=== PATIENT | female | born 1965 | race Caucasian/White ===

== ENCOUNTER 2018-06-15 07:30 | Inpatient (IN) | payer BC ==
[2018-10-18] MEDS ORDERED: Buffered Lidocaine 0.9% SYRIN* 5 ML/SYR SYRINGE INTRADERM ONE (14:49)
--- OUTSIDE RECORDS SUMMARY | 2018-10-19 05:39 | XMS REPORT | Continuity of Care Document ---
:1965 External Reference #:[id number] Author Name GeethaGenie wilhelm Care Team Providers Name Role Phone Frankie Damon MD Primary Care Physician Unavailable Payers Type Date Identification Numbers Payment Provider Subscriber Policy Number: [id number] [employer] Amol Barboza PayID: [id number] [address] [address] [place] [address] Effective: 2014 Policy Number: [employer] Amol Barboza [id number] Onset: 2014 Group Name: [phone] [address] PayID: [id number] Henriquez [id number] Advance Directives Description No Information Available Problems Date Description Provider Status Onset: 03/01/2018 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 Active Onset: 12/29/2016 Thoracic and lumbosacral neuritis Frankie Damon M.D. Active Onset: 07/20/2017 Solitary sacroiliitis Frankie Damon M.D. Active Onset: 09/21/2017 Low back pain Frankie Damon M.D. Active Onset: 02/07/2018 Pure hyperglyceridemia Frankie Damon M.D. Active Onset: 03/15/2018 Type 2 diabetes mellitus Frankie Damon M.D. Active Onset: 03/25/2016 Encounter for other orthopedic Jaxson Finn M.D. Inactive aftercare Inactive: 11/23/2017 Onset: 06/10/2016 Bicipital tenosynovitis Jaxson Finn M.D. Inactive Inactive: 11/23/2017 Onset: 07/22/2015 Disorder of shoulder Jaxson Finn M.D. Inactive Inactive: 10/09/2018 Onset: 02/07/2018 Chronic obstructive lung disease Frankie Damon M.D. Resolved Resolved: 10/09/2018 Onset: 06/25/2015 Strain of rotator cuff capsule Jaxson Finn M.D. Resolved Resolved: 10/09/2018 Onset: 02/06/2016 Neoplasm of uncertain behavior of Frankie Damon M.D. Resolved skin Resolved: 10/09/2018 Family History Date Family Member(s) Problem(s) Comments General Cancer General Diabetes General heart problems Father Colon Cancer Father Chronic Obstructive Pulmonary Disease (COPD) Mother Heart Disease Mother Aneursym-brain Mother maternal grandfather-OR Mother Maternal grandmother-bone cancer Siblings 4 Social History Type Date Description Comments Sex Unknown Marital Status Lives With Occupation Currently Working [employer] Tobacco Use Start: Unknown End: Former Cigarette Smoker Unknown Smoking Status Reviewed: 10/11/18 Former Cigarette Smoker ETOH Use 10/09/2018 Rarely consumes alcohol Recreational Drug Use Denies Drug Use Tobacco Use Start: Unknown End: Patient is a former quit April 30 of Unknown smoker 2018 Exercise Type/Frequency Exercises rarely Allergies, Adverse Reactions, Alerts Date Description Reaction Status Severity Comments 05/21/2015 NKDA Active 02/03/2018 Bees Active swelling at site and itching. Medications Medication Date Status Form Strength Qnty SIG Indications Ordering Provider Hydrocodone-Acet 06/14 Active Tablets 5-325mg 120ta 1 tab every M51.16 [facility] /2017 bs 6h as needed Lenny Rossi M.D.,FACP Gabapentin 05/17 Active Capsules 300mg 90cap 2 cap in the s morning 2 [place] caps in , MTerrenceDTerrence afternoon and 2 cap at night Metformin HCL 03/15 Active Tablets 500mg 60tab 1 by mouth E11.9 s twice a day Laura Damon Ventolin HFA 02/07 Active Aerosol 108(90Bas 8gm 2 puffs by J44.9 e) mouth four [place] mcg/Act times a day Laura as needed Ibuprofen 08/30 Active Tablets 600mg 45tab three times a M51.16 s day with [place] food- as , M.D. needed per patient Lisinopril-Melcroft 03/11 Active Tablets 20-12.5mg 30tab take one I10 [place] chlorothiazide s tablet by Pachika mouth every , M.D. day in the morning Metaxalone Active Tablets 800mg takes 1 by [place], /0000 mouth at MD Tanya bedtime Black Cohosh Active Tablets 40mg 2 by mouth Unknown /0000 daily. Vitamin E Active Capsules 1000Iu 1 by mouth Unknown /0000 every day Flaxseed Oil Active Capsules 1000mg 1 by mouth Unknown /0000 every day Chantix 03/15 Hx Tablets 1mg 60tab take one F17.210 [place] s tablet by Nelson Jose Raul - mouth twice a , M.D. Chantix Starting 02/07 Hx Tablets 0.5mg X 1tabs as directed F17.210 [facility] 11 & 1 mg Christineikara - Merrick He , MShira 03/15 Dulera 02/07 Hx Aerosol 200-5mcg/ 8.800 2 puff twice J44.9 Act gm a day Nelson Onofer M.D. 10/09 Amberen 09/21 Hx Nelson Onofre M.D. 02/02 Chantix 08/10 Hx Tablets 1mg 56tab Take One F17.210 [place] s Tablet By Nelson Jose Raul - Mouth Twice A , M.D. Hydrocodone-Acet 07/20 Hx Tablets 5-325mg 90tab 1 tab every M51.16 [place] aminophen s 8h as needed Nelson Onofre M.D. 06/14 Chantix Starting 06/08 Hx Tablets 0.5mg X 53tab Take By Mouth F17.210 [place] 11 & 1 mg s as Directed Pachikara - X 42 On Package , Laura 08/10 Hydrocodone-Acet 05/16 Hx Tablets 5-325mg 42tab take 1 M51.16 Frankie aminophen s tablets every [place] - 8 hours for , M.D. 07/20 pain. Baclofen 05/16 Hx Tablets 10mg 45tab Take One-Half Jaime s Tablet By MAYURI Lopez - Mouth Every 8 09/21 Hours as Needed For Muscle Spasm, May Increase To One Tablet Every 8 Hours as Needed Tramadol HCL 12/29 Hx Tablets 50mg 120ta take two M51.16 [place] bs tablets by Nelson - mouth twice a , M.D. 07/20 day as needed maximum daily dose=4 Naproxen 08/25 Hx Tablets 500mg 30tab 1 tablet with M54.5 Jaime s food by mouth MAYURI Lopez - twice a day 03/09 Tramadol HCL 08/25 Hx Tablets 50mg 45tab Take 1-2 M54.5 Jaime s Tablets By MAYURI Lopez - Mouth Every 8 /08 Hours Needed For Pain; Maximum Daily Dose=4 Gabapentin 05/24 Hx Capsules 300mg 30cap Take One s Capsule By Aakash, - Mouth AT M.D. 03/09 Bedtime Neurontin 03/25 Hx Capsules 300mg 30cap 1 by mouth s every night Aakash, - at bedtime M.D. 05/24 Hydrocodone-Acet 01/28 Hx Tablets 5-325mg 60tab 1-2 by mouth M75.41 Jaxson aminophen s every 4-6 Aakash, - hours prn. M.D. 02/23 Hydrocodone-Acet 12/03 Hx Tablets 5-325mg 60tab 1-2 by mouth M75.41 Jaxson aminophen s every 4-6 Aakash, - hours prn. M.D. 01/13 Celecoxib 09/03 Hx Capsules 200mg 30cap once daily M75.41 s Christineika - , M.D. 12/03 Meloxicam 05/21 Hx Tablets 15mg 30tab Take One M75.80 [place] s Tablet By Lenny Rossi, - Mouth Every M.D.,FACP 10/15 Day With Food /2014 Lisinopril Hx Tablets 10mg 30tab once a day [place] /0000 s Nelson - Laura 03/11 Cyclobenzaprine Hx Tablets 5mg 60tab take 1-2 [place] HCL /0000 s tablets by Christineika - mouth twice a , M.D. 05/16 day needed, no driving after taking cyclobenzapri ne Vitamin B-12 00 Hx Tablets 50mcg Unknown /0000 - 02/02 Multi For Her Hx Tablets Unknown 50+ /0000 - 02/02 Tizanidine HCL Hx Capsules 4mg one by mouth Unknown /0000 every 8 hours - as needed 02/02 Gabapentin Hx Capsules 300mg 1 by mouth at [place]ared[place], /0000 bedtime. MD Tanya - 05/17 Cyanocobalamin Hx Tablets 500mcg take one Unknown /0000 tablet by - mouth daily 02/02 Vitamin E Hx Capsules 200Unit 1 by mouth Unknown /0000 every day - 03/09 Medications Administered in Office Medication Date Status Form Strength Qnty SIG Indications Ordering Provider Depomedrol Administered Injection Kristy 80MG 015 JESSICA Flores Immunizations CPT Code Status Date Vaccine Reaction Lot # [id number] Given 03/15/2018 Pneumonia Vaccine No immediate [id number] reaction...[id number] Given 02/06/2016 Tdap - [id number] Tetanus/Diptheria/Acellul ar Pertussis Vital Signs Date Vital Result Comment 10/11/2018 9:01am Height 65.5 inches 5'5.50" Weight 190.00 lb BP Systolic Sitting 130 mmHg BP Diastolic Sitting 78 mmHg Pain Level 8 BMI (Body Mass Index) 31.1 kg/m2 10/09/2018 1:42pm Height 65.5 inches 5'5.50" Weight 190.00 lb Heart Rate 103 /min BP Systolic Sitting 142 mmHg BP Diastolic Sitting 80 mmHg Body Temperature 98.6 F O2 % BldC Oximetry 96 % BMI (Body Mass Index) 31.1 kg/m2 09/28/2018 11:00am Height 65.5 inches 5'5.50" Weight 190.00 lb Heart Rate 60 /min BP Systolic Sitting 128 mmHg BP Diastolic Sitting 80 mmHg Respiratory Rate 14 /min O2 % BldC Oximetry 96 % BMI (Body Mass Index) 31.1 kg/m2 Neck Circumference in inches 15 09/20/2018 9:03am Height 65.5 inches 5'5.50" Weight 190.00 lb Heart Rate 96 /min BP Systolic Sitting 154 mmHg BP Diastolic Sitting 93 mmHg Body Temperature 97.9 F O2 % BldC Oximetry 98 % BMI (Body Mass Index) 31.1 kg/m2 08/23/2018 11:47am Height 65.5 inches 5'5.50" Weight 185.00 lb BP Systolic Sitting 150 mmHg BP Diastolic Sitting 80 mmHg Pain Level 6 BMI (Body Mass Index) 30.3 kg/m2 06/14/2018 7:30am Height 65.5 inches 5'5.50" Weight 185.25 lb Heart Rate 94 /min BP Systolic 138 mmHg BP Diastolic 86 mmHg Body Temperature 97.0 F O2 % BldC Oximetry 98 % BMI (Body Mass Index) 30.4 kg/m2 05/31/2018 12:59pm Height 65.5 inches 5'5.50" Weight 197.00 lb Heart Rate 101 /min BP Systolic Sitting 118 mmHg BP Diastolic Sitting 64 mmHg Respiratory Rate 16 /min Pain Level 6 O2 % BldC Oximetry 97 % Ra BMI (Body Mass Index) 32.3 kg/m2 05/17/2018 8:04am Height 65.5 inches 5'5.50" Weight 196.00 lb Heart Rate 77 /min BP Systolic 143 mmHg BP Diastolic 79 mmHg O2 % BldC Oximetry 98 % BMI (Body Mass Index) 32.1 kg/m2 03/29/2018 1:37pm Height 65.5 inches 5'5.50" Weight 197.00 lb Heart Rate 85 /min BP Systolic Sitting 118 mmHg BP Diastolic Sitting 68 mmHg Respiratory Rate 16 /min Pain Level 3 O2 % BldC Oximetry 98 % Ra BMI (Body Mass Index) 32.3 kg/m2 03/15/2018 7:36am Weight 197.00 lb Heart Rate 88 /min BP Systolic 118 mmHg BP Diastolic 80 mmHg Body Temperature 97.7 F O2 % BldC Oximetry 95 % 03/10/2018 8:23am Height 65.5 inches 5'5.50" Weight 199.00 lb Heart Rate 72 /min regularr BP Systolic Sitting 126 mmHg Ra Large Cuff BP Diastolic Sitting 90 mmHg Ra Large Cuff BP Systolic Standing 122 mmHg Ra Large Cuff BP Diastolic Standing 86 mmHg Ra Large Cuff Respiratory Rate 16 /min Pain Level 0 O2 % BldC Oximetry 100 % BMI (Body Mass Index) 32.6 kg/m2 03/01/2018 1:20pm Height 65.5 inches 5'5.50" Weight 195.00 lb Heart Rate 92 /min BP Systolic Sitting 134 mmHg BP Diastolic Sitting 82 mmHg Respiratory Rate 16 /min Pain Level 5 O2 % BldC Oximetry 98 % Ra BMI (Body Mass Index) 32.0 kg/m2 02/07/2018 7:40am Weight 194.00 lb Heart Rate 83 /min BP Systolic 137 mmHg BP Diastolic 80 mmHg Body Temperature 97.6 F O2 % BldC Oximetry 98 % 02/03/2018 8:47am Height 65.50 inches 5'5.50" Weight 192.00 lb Heart Rate 84 /min regular. BP Systolic 134 mmHg Ra Large cuff BP Diastolic 84 mmHg Ra Large cuff BP Systolic Sitting 138 mmHg LA Large cuff BP Diastolic Sitting 92 mmHg LA Large cuff BP Systolic Standing 130 mmHg LA Large cuff BP Diastolic Standing 86 mmHg LA Large cuff Respiratory Rate 12 /min no respiratory difficulties. Pain Level 4 O2 % BldC Oximetry 96 % BMI (Body Mass Index) 31.5 kg/m2 11/23/2017 7:39am Height 67 inches 5'7" Weight 188.50 lb Heart Rate 75 /min BP Systolic Sitting 110 mmHg BP Diastolic Sitting 78 mmHg O2 % BldC Oximetry 97 % BMI (Body Mass Index) 29.5 kg/m2 09/21/2017 7:36am Weight 181.50 lb Heart Rate 91 /min BP Systolic 108 mmHg BP Diastolic 70 mmHg Body Temperature 97.4 F O2 % BldC Oximetry 96 % 08/10/2017 8:01am Heart Rate 75 /min BP Systolic Sitting 130 mmHg BP Diastolic Sitting 80 mmHg O2 % BldC Oximetry 98 % 07/20/2017 7:41am Weight 183.00 lb Heart Rate 78 /min BP Systolic Sitting 124 mmHg BP Diastolic Sitting 80 mmHg Pain Level 4 O2 % BldC Oximetry 99 % 06/08/2017 7:34am Weight 188.25 lb Heart Rate 87 /min BP Systolic 128 mmHg BP Diastolic 80 mmHg Body Temperature 98.0 F O2 % BldC Oximetry 98 % 05/16/2017 10:23am Weight 188.25 lb Heart Rate 104 /min BP Systolic 136 mmHg BP Diastolic 78 mmHg Body Temperature 97.9 F O2 % BldC Oximetry 98 % 03/09/2017 11:08am Weight 185.00 lb Heart Rate 88 /min BP Systolic Sitting 136 mmHg BP Diastolic Sitting 86 mmHg O2 % BldC Oximetry 98 % 12/29/2016 3:06pm Weight 185.00 lb Heart Rate 102 /min BP Systolic Sitting 124 mmHg BP Diastolic Sitting 80 mmHg Body Temperature 97.8 F Pain Level 8 O2 % BldC Oximetry 97 % 08/25/2016 8:37am Weight 185.00 lb Heart Rate 76 /min BP Systolic Sitting 132 mmHg BP Diastolic Sitting 82 mmHg Respiratory Rate 15 /min Body Temperature 98.5 F O2 % BldC Oximetry 98 % 07/28/2016 3:18pm Height 67 inches 5'7" Weight 184.00 lb Pain Level 2 BMI (Body Mass Index) 28.8 kg/m2 06/10/2016 2:02pm Height 67 inches 5'7" Weight 199.00 lb Pain Level 3 only when she moves the arm forward BMI (Body Mass Index) 31.2 kg/m2 04/29/2016 7:57am Height 67 inches 5'7" Weight 199.00 lb Heart Rate 64 /min BP Systolic Sitting 134 mmHg BP Diastolic Sitting 80 mmHg Respiratory Rate 16 /min Pain Level 5 8 at the worst BMI (Body Mass Index) 31.2 kg/m2 04/09/2016 8:43am Weight 195.00 lb Heart Rate 90 /min BP Systolic Sitting 130 mmHg BP Diastolic Sitting 81 mmHg Body Temperature 97.0 F 03/25/2016 9:33am Height 67 inches 5'7" Weight 199.00 lb Pain Level 5 plateau not getting better BMI (Body Mass Index) 31.2 kg/m2 03/11/2016 7:54am Height 67 inches 5'7" Weight 199.00 lb Heart Rate 80 /min BP Systolic Sitting 140 mmHg BP Diastolic Sitting 104 mmHg Body Temperature 97.9 F O2 % BldC Oximetry 98 % BMI (Body Mass Index) 31.2 kg/m2 02/25/2016 9:19am Height 67 inches 5'7" Weight 202.00 lb Pain Level 7 BMI (Body Mass Index) 31.6 kg/m2 02/17/2016 1:43pm Weight 202.00 lb Heart Rate 86 /min BP Systolic Sitting 152 mmHg BP Diastolic Sitting 80 mmHg O2 % BldC Oximetry 96 % 02/06/2016 7:55am Height 65 inches 5'5" Weight 202.00 lb Heart Rate 82 /min BP Systolic Sitting 159 mmHg BP Diastolic Sitting 97 mmHg Body Temperature 97.7 F Pain Level 7 O2 % BldC Oximetry 98 % BMI (Body Mass Index) 33.6 kg/m2 01/14/2016 9:13am Height 67 inches 5'7" Weight 201.00 lb Pain Level 4 BMI (Body Mass Index) 31.5 kg/m2 12/24/2015 8:15am Height 67 inches 5'7" Weight 201.00 lb Heart Rate 88 /min BP Systolic Sitting 128 mmHg BP Diastolic Sitting 80 mmHg Respiratory Rate 15 /min Body Temperature 98.0 F Pain Level 8 O2 % BldC Oximetry 98 % BMI (Body Mass Index) 31.5 kg/m2 12/03/2015 8:43am Weight 205.00 lb Heart Rate 87 /min BP Systolic 140 mmHg BP Diastolic 98 mmHg Body Temperature 97.8 F 10/15/2015 7:40am Weight 205.00 lb Heart Rate 83 /min BP Systolic Sitting 153 mmHg BP Diastolic Sitting 95 mmHg Body Temperature 97.2 F 10/01/2015 7:56am Height 67 inches 5'7" Weight 204.00 lb Pain Level 6 BMI (Body Mass Index) 31.9 kg/m2 09/03/2015 7:56am Height 67 inches 5'7" Weight 207.00 lb Heart Rate 87 /min BP Systolic 138 mmHg BP Diastolic 90 mmHg Body Temperature 96.9 F Pain Level 5 BMI (Body Mass Index) 32.4 kg/m2 08/13/2015 8:37am Height 67 inches 5'7" Weight 204.00 lb Pain Level 8 BMI (Body Mass Index) 31.9 kg/m2 07/22/2015 8:13am Height 67 inches 5'7" Weight 206.00 lb Pain Level 6 BMI (Body Mass Index) 32.3 kg/m2 06/25/2015 1:51pm Height 68 inches 5'8" Weight 205.00 lb Pain Level 5 increases with use BMI (Body Mass Index) 31.2 kg/m2 06/25/2015 7:40am Weight 202.00 lb Heart Rate 85 /min BP Systolic Sitting 132 mmHg BP Diastolic Sitting 82 mmHg Body Temperature 97.7 F 06/11/2015 7:32am Weight 205.00 lb Heart Rate 88 /min BP Systolic Sitting 143 mmHg BP Diastolic Sitting 87 mmHg Body Temperature 96.8 F 05/21/2015 8:30am Height 66 inches 5'6" Weight 204.50 lb Heart Rate 83 /min BP Systolic Sitting 168 mmHg BP Diastolic Sitting 98 mmHg Pain Level 8 Shoulder O2 % BldC Oximetry 98 % BMI (Body Mass Index) 33.0 kg/m2 Results Test Date Facility Test Result H/L Range Note Laboratory test 10/09/2018 [employer] Hemoglobin A1c 6.9 5-7 finding Drug Abuse 20 06/14/2018 [facility] Urine Amphetamine Negative [address] ng/[place] [address] [phone] Urine Barbiturates Presumptive Posi <SEE NOTE> Abnormal 2 ng/mL Urine Benzodiazepines Negative ng/mL 3 Urine Cocaine Negative ng/mL 4 Urine Phencyclidine Negative ng/mL Cutoff: 25 Urine Tetrahydrocannabinol Negative ng/mL Cutoff: 50 5 Creatinine, Urine 43.3 mg/dL Specific [place] 1.009 pH 6.0 Oxidants Negative 6 Adulterants Comment Normal Codeine, Ur Not Detected ng/mL Cutoff: 25 7 Pyuaxws-2-anje-glucuronide, Ur Not Detected ng/mL 8 Morphine, Ur Not Detected ng/mL Cutoff: 25 9 Xxiwigiy-8-hucz-glucuronide, U Not Detected ng/mL 10 6-monoacetylmorphine, Ur Not Detected ng/mL Cutoff: 25 11 Hydrocodone, Ur Present ng/mL Abnormal Cutoff: 25 12 Norhydrocodone, Ur Present ng/mL Abnormal Cutoff: 25 13 Dihydrocodeine, Ur Not Detected ng/mL Cutoff: 25 14 Hydromorphone, Ur Not Detected ng/mL Cutoff: 25 15 Sjychawtedaab3gskqiykcobukzhs Not Detected ng/mL 16 Oxycodone, Ur Not Detected ng/mL Cutoff: 25 17 Noroxycodone, Ur Not Detected ng/mL Cutoff: 25 18 Oxymorphone, Ur Not Detected ng/mL Cutoff: 25 19 Mvgziwfamnh-3-edjh-glucuronide Not Detected ng/mL 20 Noroxymorphone, Ur Not Detected ng/mL Cutoff: 25 21 Fentanyl, Ur Not Detected ng/mL Cutoff: 2 22 Norfentanyl, Ur Not Detected ng/mL Cutoff: 2 23 Meperidine, Ur Not Detected ng/mL Cutoff: 25 24 Normeperidine, Ur Not Detected ng/mL Cutoff: 25 25 Naloxone, Ur Not Detected ng/mL Cutoff: 25 26 Jyrcaqpt-9-xevh-glucuronide, U Not Detected ng/mL 27 Methadone, Ur Not Detected ng/mL Cutoff: 25 28 Eddp, Ur Not Detected ng/mL Cutoff: 25 29 Propoxyphene, Ur Not Detected ng/mL Cutoff: 25 30 Norpropoxyphene, Ur Not Detected ng/mL Cutoff: 25 31 Tramadol, Ur Not Detected ng/mL Cutoff: 25 32 O-desmethyltramadol, Ur Not Detected ng/mL Cutoff: 25 33 Tapentadol, Ur Not Detected ng/mL Cutoff: 25 34 N-desmethyltapentadol, Ur Not Detected ng/mL Cutoff: 50 35 Nwieqcssbq-cwcd-epfxxhkbjwl, U Not Detected ng/mL 36 Buprenorphine, Ur Not Detected ng/mL Cutoff: 5 37 Norbuprenorphine, Ur Not Detected ng/mL Cutoff: 5 38 Norbuprenorphine glucuronide Not Detected ng/mL Cutoff: 20 39 Opioid Interpretation See Comment 40 Barbiturate Confirm 06/14/2018 [facility] Urine Butalbital 353 ng/mL [address] by GC/[place] [address] [phone] Urine Amobarbital by GC/MS Negative ng/mL 42 Urine Pentobarbital by GC/MS Negative ng/mL 43 Urine Secobarbital by GC/MS Negative ng/mL 44 Urine Phenobarbital by GC/MS Negative ng/mL 45 Urine Barbiturates Interp Positive. 46 Urine Nicotine 05/17/2018 [facility] Nicotine < 5.0 ng/mL < 5.[address] [place] [address] [phone] Cotinine < 5.0 ng/mL <5.0 Nornicotine < 2.0 ng/mL <2.0 Anabasine < 2.0 ng/mL <2.0 47 Urine Microalbumin 05/16/2018 [facility] Ur Microalbumin < 15.[address] (mg/L) mg/[place] [address] [phone] Urine Creatinine 81.81 mg/dL Urine Microalbumin/Creatinine TNP ug/mg <31 48 Lipid Profile 05/16/2018 [facility] Triglycerides 452 mg/dL 49 (Trig/Chol/HDL) [address] [place] [address] [phone] Cholesterol 213 mg/dL 50 HDL Cholesterol 35.4 mg/dL 51 LDL Cholesterol (SEE NOTE) mg/dL 52 Laboratory test 05/16/2018 [facility] LDL Cholesterol 102 mg/dL [address] [place] [address] [phone] Laboratory test 03/15/2018 [employer] [facility] Hemoglobin A1c 6.9 5-7 finding Laboratory test 01/26/2018 [facility] Troponin-I (TnI) 0.00 ng/ mL <0.[address] [place] [address] [phone] CBC Auto Diff 01/26/2018 [facility] White Blood 11.3 High 3.5- [address] Count 10^3/uL 0.8 [place] [address] [phone] Red Blood Count 5.12 10^6/uL N 4.0-5.4 Hemoglobin 17.3 g/dL High 12.0-16.0 Hematocrit 50 % High 35-47 Mean Corpuscular Volume 97 fL N 80-97 Mean Corpuscular Hemoglobin 34 pg High 27-31 Mean Corpuscular HGB Conc 35 g/dL N 31-36 Red Cell Distribution Width 13 % N 10.5-15 Platelet Count 233 10^3/uL N 150-450 54 Mean Platelet Volume 8 um3 N 7.4-10.4 Abs Neutrophils 7.5 10^3/uL N 1.5-7.7 Abs Lymphocytes 2.9 10^3/uL N 1.0-4.8 Abs Monocytes 0.6 10^3/uL N 0-0.8 Abs Eosinophils 0.2 10^3/uL N 0-0.6 Abs Basophils 0.1 10^3/uL N 0-0.2 Abs Nucleated RBC 0 10^3/uL Granulocyte % 66.2 % N 38-83 Lymphocyte % 25.7 % N 25-47 Monocyte % 5.6 % N 0-7 Eosinophil % 1.8 % N 0-6 Basophil % 0.7 % N 0-2 Nucleated Red Blood Cells % 0 Laboratory test 01/26/2018 [facility] Lactic Acid 1.8 mmol/L N 0.5-2.0 [address] [place] [address] [phone] B-Type Natriuretic Peptide BNP 24 pg/mL 56 Inr/Protime 01/26/2018 [facility] Inr 0.89 N 0.77-1.[address] [place] [address] [phone] Laboratory test 01/26/2018 [facility] Partial 31.7 seconds N 26.0-36.[address] [place] [address] PTT [phone] Comp Metabolic 01/26/2018 [facility] Sodium 137 mmol/L N 133- [address] [place] [address] [phone] Potassium 3.8 mmol/L N 3.5-5.0 Chloride 100 mmol/L Low 101-111 Co2 Carbon Dioxide 29 mmol/L N 22-32 Anion Gap 8 mmol/L N 2-11 Glucose 132 mg/dL High 70-100 Blood Urea Nitrogen 13 mg/dL N 6-24 Creatinine 0.81 mg/dL N 0.51-0.95 BUN/Creatinine Ratio 16.0 N 8-20 Calcium 10.3 mg/dL N 8.6-10.3 Total Protein 7.3 g/dL N 6.4-8.9 Albumin 4.4 g/dL N 3.2-5.2 Globulin 2.9 g/dL N 2-4 Albumin/Globulin Ratio 1.5 N 1-3 Total Bilirubin 0.30 mg/dL N 0.2-1.0 Alkaline Phosphatase 100 U/L N 34-104 Alt 23 U/L N 7-52 Ast 15 U/L N 13-39 Egfr Non- 74.3 >60 Egfr 95.5 >60 57 Laboratory test 01/26/2018 [facility] Magnesium 2.2 mg/dL N 1.9-2.[address] [place] [address] [phone] Creatine Kinase(CK) 56 U/L N 10-223 CKMB 01/26/2018 [facility] CKMB ng/mL 1.2 ng/mL N 0.6-6.[address] [place] [address] [phone] Laboratory test 01/26/2018 [facility] Troponin-I 0.00 ng/mL < 0.[address] (TnI) [place] [address] [phone] TSH (Thyroid Stim Horm) 0.76 mcIU/mL N 0.34-5.60 CBC Auto Diff 07/18/2017 [facility] White Blood 8.6 10^3/uL N 3.5-10.[address] [place] [address] [phone] Red Blood Count 5.38 10^6/uL N 4.0-5.4 Hemoglobin 18.2 g/dL High 12.0-16.0 Hematocrit 53 % High 35-47 Mean Corpuscular Volume 98 fL High 80-97 Mean Corpuscular Hemoglobin 34 pg High 27-31 Mean Corpuscular HGB Conc 35 g/dL N 31-36 Red Cell Distribution Width 14 % N 10.5-15 Platelet Count 264 10^3/uL N 150-450 Mean Platelet Volume 9 um3 N 7.4-10.4 Abs Neutrophils 4.8 10^3/uL N 1.5-7.7 Abs Lymphocytes 2.9 10^3/uL N 1.0-4.8 Abs Monocytes 0.6 10^3/uL N 0-0.8 Abs Eosinophils 0.2 10^3/uL N 0-0.6 Abs Basophils 0 10^3/uL N 0-0.2 Abs Nucleated RBC 0.01 10^3/uL N Granulocyte % 55.9 % N 38-83 Lymphocyte % 34.0 % N 25-47 Monocyte % 7.6 % N 1-9 Eosinophil % 2.0 % N 0-6 Basophil % 0.5 % N 0-2 Nucleated Red Blood Cells % 0.1 N Laboratory 07/18/2017 [facility] TSH (Thyroid Stim 0.53 N 0.34 -5.60 58 test finding [address] Horm) mcIU/[place] [address] [phone] Lipid Profile 07/18/2017 [facility] Triglycerides 331 mg/dL N 59 (Trig/Chol/HDL [address] ) [place] [address] [phone] Cholesterol 201 mg/dL N 60 HDL Cholesterol 29.9 mg/dL N 61 LDL Cholesterol 105 mg/dL N 62 Laboratory test 07/18/2017 [facility] Cortisol 16.74 g/dL N [address] [place] [address] [phone] Comp Metabolic 07/18/2017 [facility] Sodium 138 mmol/L N 133- [address] [place], [place] [id number] [phone] Potassium 3.9 mmol/L N 3.5-5.0 Chloride 101 mmol/L N 101-111 Co2 Carbon Dioxide 31 mmol/L N 22-32 Anion Gap 6 mmol/L N 2-11 Glucose 128 mg/dL High 70-100 Blood Urea Nitrogen 12 mg/dL N 6-24 Creatinine 0.84 mg/dL N 0.51-0.95 BUN/Creatinine Ratio 14.3 N 8-20 Calcium 10.0 mg/dL N 8.6-10.3 Total Protein 7.0 g/dL N 6.4-8.9 Albumin 4.3 g/dL N 3.2-5.2 Globulin 2.7 g/dL N 2-4 Albumin/Globulin Ratio 1.6 N 1-3 Total Bilirubin 0.70 mg/dL N 0.2-1.0 Alkaline Phosphatase 80 U/L N 34-104 Alt 19 U/L N 7-52 Ast 17 U/L N 13-39 Egfr Non- 71.5 N >60 Egfr 91.9 N >60 64 Vitamin B12 03/23/2017 [facility] Vitamin B12 > 1450 High 180- 914 65 And Folate [address] pg/mL Serum [place], [place] [id number] [phone] Folic Acid (Folate) > 20.00 ng/mL N >3.99 Wound 09/07/2016 [facility] Wound/Misc SEE RESULT 66, 67 Culture/Sensi [address] [place] [address] Stain [phone] HSV/VZV Derm PCR 09/07/2016 [facility] hs/VZ Source RIGHT N [address] SCALP [place], [place] [id number] [phone] HSV 1 PCR Negative N Negative HSV 2 PCR Negative N Negative 68 Varicella Zoster Source RIGHT SCALP N Varicella Zoster Result Positive N Negative 69 Laboratory test 06/28/2016 [facility] Surgical SEE RESULT 70, [address] [address] [phone] Laboratory test 02/17/2016 [facility] Cytology SEE RESULT 72 finding [address] [place] [address] [phone] HPV Rna Ww/Reflex Genotype Negative N Negative 73 Trichomonas Vaginalis Rna Negative N Negative 74 Laboratory test 02/17/2016 [facility] Gardnerella/Yeast: SEE RESULT [address] [place] [address] [phone] Comp Metabolic 01/02/2016 [facility] Sodium 133 mmol/L N 133- Panel [address] [place] [address] [phone] Potassium 4.0 mmol/L N 3.5-5.0 Chloride 100 mmol/L Low 101-111 Co2 Carbon Dioxide 27 mmol/L N 22-32 Anion Gap 6 mmol/L N 2-11 Glucose 174 mg/dL High 70-100 Blood Urea Nitrogen 10 mg/dL N 6-24 Creatinine 0.80 mg/dL N 0.51-0.95 BUN/Creatinine Ratio 12.5 N 8-20 Calcium 8.9 mg/dL N 8.6-10.3 Total Protein 6.3 g/dL Low 6.4-8.9 Albumin 4.1 g/dL N 3.2-5.2 Globulin 2.2 g/dL N 2-4 Albumin/Globulin Ratio 1.9 N 1-3 Total Bilirubin 0.50 mg/dL N 0.2-1.0 Alkaline Phosphatase 83 U/L N 34-104 Alt 31 U/L N 7-52 Ast 24 U/L N 13-39 Egfr Non- 75.9 N >60 Egfr 97.6 N >60 76 Laboratory test 01/02/2016 [facility] TSH (Thyroid 0.77 ?IU/mL N 0.34-5.[address] Stim Horm) [place] [address] [phone] CBC Auto Diff 01/02/2016 [facility] White Blood 7.3 10^3/uL N 3.5-10.[address] [place] [address] [phone] Red Blood Count 5.02 10^6/uL N 4.0-5.4 Hemoglobin 16.2 g/dL High 12.0-16.0 Hematocrit 48 % High 35-47 Mean Corpuscular Volume 96 fL N 80-97 Mean Corpuscular Hemoglobin 32 pg High 27-31 Mean Corpuscular HGB Conc 34 g/dL N 31-36 Red Cell Distribution Width 13 % N 10.5-15 Platelet Count 259 10^3/uL N 150-450 Mean Platelet Volume 8 um3 N 7.4-10.4 Abs Neutrophils 5.6 10^3/uL N 1.5-7.7 Abs Lymphocytes 1.0 10^3/uL N 1.0-4.8 Abs Monocytes 0.5 10^3/uL N 0-0.8 Abs Eosinophils 0.1 10^3/uL N 0-0.6 Abs Basophils 0 10^3/uL N 0-0.2 Abs Nucleated RBC 0 10^3/uL N Granulocyte % 76.6 % N 38-83 Lymphocyte % 14.1 % Low 25-47 Monocyte % 7.0 % N 1-9 Eosinophil % 1.7 % N 0-6 Basophil % 0.6 % N 0-2 Nucleated Red Blood Cells % 0 N Laboratory test 01/02/2016 [facility] Cortisol 8.53 ?g/dL N 77 finding [address] [place] [address] [phone] Lipid Profile 01/02/2016 [facility] Triglycerides 390 mg/dL N 78 (Trig/Chol/HDL) [address] [place] [address] [phone] Cholesterol 167 mg/dL N 79 HDL Cholesterol 27.8 mg/dL N 80 LDL Cholesterol 61 mg/dL N 81 Comp Metabolic Panel 09/03/2015 [facility] Sodium 135 mmol/L N 133-145 [address] [place] [address] [phone] Potassium 4.3 mmol/L N 3.5-5.0 Chloride 100 mmol/L Low 101-111 Co2 Carbon Dioxide 28 mmol/L N 22-32 Anion Gap 7 mmol/L N 2-11 Glucose 139 mg/dL High 70-100 Blood Urea Nitrogen 16 mg/dL N 6-24 Creatinine 0.90 mg/dL N 0.51-0.95 BUN/Creatinine Ratio 17.8 N 8-20 Calcium 9.4 mg/dL N 8.6-10.3 Total Protein 6.6 g/dL N 6.4-8.9 Albumin 4.4 g/dL N 3.2-5.2 Globulin 2.2 g/dL N 2-4 Albumin/Globulin Ratio 2.0 N 1-3 Total Bilirubin 0.60 mg/dL N 0.2-1.0 Alkaline Phosphatase 73 U/L N 34-104 Alt 30 U/L N 7-52 Ast 15 U/L N 13-39 Egfr Non- 66.5 N >60 Egfr 85.6 N >60 82 1 REFERENCE VALUE Cutoff: 500 2 Presumptive Positive Drug confirmation to follow. Presumptive Positive means that the screening method is positive, but the test needs to be run by a confirmatory method before being finalized. REFERENCE VALUE Cutoff: 200 3 REFERENCE VALUE Cutoff: 100 4 REFERENCE VALUE Cutoff: 150 5 ADDITIONAL INFORMATION This report is intended for use in clinical monitoring or management of patients. It is not intended for use in employment-related testing. 6 REFERENCE VALUE Cutoff: 200 mg/L 7 Tylenol 3 8 Metabolite of codeine REFERENCE VALUE Cutoff: 100 9 Trang Bennett, MS Contin; Also a minor metabolite (10%) of codeine and can be seen in low concentrations (<2,000 ng/mL) with poppy seed ingestion. 10 Metabolite of morphine REFERENCE VALUE Cutoff: 100 11 Metabolite of heroin 12 Lortab, Pelsor, Vicodin; Also a very minor metabolite of codeine and impurity (<1%) of oxycodone. 13 Metabolite of hydrocodone 14 Metabolite of hydrocodone 15 Dilaudid, Exalgo; Also a metabolite of hydrocodone and a minor (<5%) metabolite of morphine. 16 Metabolite of hydromorphone REFERENCE VALUE Cutoff: 100 17 Endocet, Percocet, Oxycontin 18 Metabolite of oxycodone 19 Numorphan, Opana; Also a metabolite of oxycodone. 20 Metabolite of oxymorphone REFERENCE VALUE Cutoff: 100 21 Metabolite of oxymorphone 22 Actiq, Duragesic, Fentora 23 Metabolite of fentanyl 24 Demerol 25 Metabolite of meperidine 26 Narcan 27 Metabolite of naloxone REFERENCE VALUE Cutoff: 100 28 Dolophine 29 Metabolite of methadone 30 Darvon, Darvocet 31 Metabolite of propoxyphene 32 Tradol, Ultram, Ultracet 33 Metabolite of tramadol 34 Nucynta 35 Metabolite of tapentadol 36 Metabolite of tapentadol REFERENCE VALUE Cutoff: 100 37 Buprenex, Suboxone 38 Metabolite of buprenorphine 39 Metabolite of buprenorphine 40 Test detected the presence of hydrocodone and one of its metabolites (norhydrocodone). Suspect use of hydrocodone within the past three days. ADDITIONAL INFORMATION This test was developed and its performance characteristics determined by [facility] in a manner consistent with CLIA requirements. This test has not been cleared or approved by the U.S. Food and Drug Administration. Test Performed by: [facility] [address] [place] [address] 41 REFERENCE VALUE Cutoff: 100 42 REFERENCE VALUE Cutoff: 100 43 REFERENCE VALUE Cutoff: 100 44 REFERENCE VALUE Cutoff: 100 45 REFERENCE VALUE Cutoff: 100 46 ADDITIONAL INFORMATION This report is intended for use in clinical monitoring and management of patients. It is not intended for use in employment-related testing. This test was developed and its performance characteristics determined by [facility] in a manner consistent with CLIA requirements. This test has not been cleared or approved by the U.S. Food and Drug Administration. Test Performed by: [facility] [employer] - [address] [address] 47 ADDITIONAL INFORMATION This test was developed and its performance characteristics determined by [facility] in a manner consistent with CLIA requirements. This test has not been cleared or approved by the U.S. Food and Drug Administration. Test Performed by: [facility] - [address] [address] 48 Unable to calculate due to low microalbumin 49 Desirable: <150 Borderline High: 150-199 High: 200-499 Very High: >500 50 Desirable: <200 Borderline High: 200-239 High: >239 51 Low: <40 Desirable: 40-60 High: >60 52 Unable to calculate LDL as triglyceride is > 400 53 Desirable: <100 Near Optimal: 100-129 Borderline High: 130-159 High: 160-189 Very High: >189 54 No clot in tube. No "R" flags present 55 [facility] Severe Sepsis and Septic Shock Management Bundle Measure requires all lactic acids initially measuring >2.0 mmol/L be repeated. 56 >100 to <200 pg/mL: likely compensated congestive heart failure (CHF) 200 to 400 pg/mL: likely moderate CHF >400 pg/mL: likely moderate to severe CHF 57 Because ethnic data is not always readily available, this report includes an eGFR for both -Americans and non- Americans. The National Kidney Disease Education Program (NKDEP) does not endorse the use of the MDRD equation for patients that are not between the ages of 18 and 70, are , have extremes of body size, muscle mass, or nutritional status, or are non- or non-. According to the National Kidney Foundation, irrespective of diagnosis, the stage of the disease is based on the level of kidney function: Stage Description GFR(mL/min/1.73 m(2)) 1 Kidney damage with normal or decreased GFR 90 2 Kidney damage with mild decrease in GFR 60-89 3 Moderate decrease in GFR 30-59 4 Severe decrease in GFR 15-29 5 Kidney failure <15 (or dialysis) 58 FASTING 12 HOUR 59 Desirable <150 Borderline high 150-199 High 200-499 Very High >500 60 Desirable <200 Borderline high 200-239 High >239 61 Low <40 Desirable: 40-60 High: >60 62 Desirable: <100 mg/dL Near Optimal: 100-129 mg/dL Borderline High: 130-159 mg/dL High: 160-189 mg/dL Very High: >189 mg/dL 63 AM 8.7-22.4 PM <10 64 Because ethnic data is not always readily available, this report includes an eGFR for both -Americans and non- Americans. The National Kidney Disease Education Program (NKDEP) does not endorse the use of the MDRD equation for patients that are not between the ages of 18 and 70, are , have extremes of body size, muscle mass, or nutritional status, or are non- or non-. According to the National Kidney Foundation, irrespective of diagnosis, the stage of the disease is based on the level of kidney function: Stage Description GFR(mL/min/1.73 m(2)) 1 Kidney damage with normal or decreased GFR 90 2 Kidney damage with mild decrease in GFR 60-89 3 Moderate decrease in GFR 30-59 4 Severe decrease in GFR 15-29 5 Kidney failure <15 (or dialysis) 65 Normal Range 180 to 914 Indeterminate Range 145 to 180 Deficient Range <145 66 [id number] 67 SEE RESULT BELOW Name: AMOL BARBOZA : [address]: New Dupont MD Acct: [id number] Unit: [id number] AGE: 50 Location: [facility] Re09/07/16 SEX: F Status: DEP ER SPEC: [id number] KOMAL: 09/07/[address]: New Dupont MD REQ: [id number] RECD: 09/08/16 STATUS: JUAN OLSON DR: Frankie Damon MD _ SOURCE: HEAD SPDESC: ORDERED: Culture Stain COMMENTS: [id number] Procedure Result Reported Site Wound/Misc Gram Stain Final 09/08/16- 1209 ML No Neutrophils Observed No Organisms Seen Wound/Misc Culture Final 09/10/16- 1227 ML Organism 1 NORMAL NHI Quantity 1+ * ML - MAIN LAB ([facility]) . END OF REPORT * ML=Testing performed at Main Lab DEPARTMENT OF PATHOLOGY, [address] [place] [address] Brody Browning M.D. Director [facility] # [id number] 68 ADDITIONAL INFORMATION This test was developed using an analyte specific reagent. Its performance characteristics were determined by [facility] in a manner consistent with CLIA requirements. This test has not been cleared or approved by the U.S. Food and Drug Administration. 69 ADDITIONAL INFORMATION This test was developed and its performance characteristics determined by [facility] in a manner consistent with CLIA requirements. This test has not been cleared or approved by the U.S. Food and Drug Administration. Test Performed by: [place] [address] Registered Nurse First Assistant: Jesus Calvo II, M.D., Ph.D. 70 [id number] 71 SEE RESULT BELOW Name: AMOL BARBOZA : [address]: Beto Babb MD Acct: [id number] Unit: [id number] AGE: 50 Location: [facility] Re06/28/16 SEX: F Status: REG REF SPEC: [id number] KOMAL: 06/28/[address] [facility] [address]: Beto Babb MD REQ: [id number] RECD: 06/28/161206 STATUS: MARCELLE OLSON DR: Frankie Damon MD _ ORDERED: LEVEL IV/2 COMMENTS: [id number] FINAL DIAGNOSIS 1. Colon, at 20 cm, biopsy: -- Hyperplastic polyp. 2. Colon, right, biopsy: -- Tubular adenoma. -- No high grade dysplasia or malignancy. CLINICAL HISTORY Father with colon cancer POST-OPERATIVE DIAGNOSIS Colonoscopy into terminal ileum, prep good - 2 polyps removed. Conclusions/ Plan: Two polyps removed GROSS DESCRIPTION 1. The specimen is received in formalin labeled, Colon Polyp at 20 cm, and consists of a 0.4 x 0.3 x 0.3 cm chris-pink polypoid soft tissue fragment, which is inked, bisected and submitted entirely in one cassette. 2. The specimen is received in formalin labeled, Right Colon Polyp, and consists of a 1.4 x 0.9 by up to 0.4 cm aggregate of chris-pink irregular to polypoid soft tissue fragments. The largest fragment is inked, serially sectioned and the specimen is submitted entirely in one cassette. Signed (signature on file) Karlie Romano MD 08/06 1114 END OF REPORT * ML=Testing performed at Main Lab DEPARTMENT OF PATHOLOGY, [address] [place] [address] Brody Browning M.D. Director [facility] # [id number] 72 SEE RESULT BELOW Name: AMOL BARBOZA : [address]: Selina Samson MD Acct: [id number] Unit: [id number] AGE: 50 Location: [facility] Re02/17/16 SEX: F Status: REG REF SPEC: [id number] KOMAL: 02/17/16-[address]: Selina Samson MD REQ: [id number] RECD: 02/17/16 STATUS: SOUT _ ORDERED: IMAGE ANALYSIS, HPV/Thin Prep, HPV 16/18 GENE FINAL DIAGNOSIS Negative for Intraepithelial lesion or Malignancy A. Ectocervical/Endocervical Specimen Adequacy: Satisfactory of evaluation Transformation zone component identified Patient Information: HPV: High risk HPV RNA testing regardless of pap results. HPV 16/18 Genotype for HPV pos Actual Specimen Date: 02/17/16 Post Menopausal?: Y Previous Abnormal Pap Smears?:N Date Time Test Result Flag (u) Normal Range 02/17/16 1418 HPV RNA RFLX GE Negative Negative The high-risk HPV types detected by the assay include: 16, 18, 31, 33, 35, 39, 45, 51, 52, 56, 58, 59, 66, and 68. Signed (signature on file) OMID Leon(ASCP) 02/17 6535 This Pap test was evaluated with the assistance of the ZondlePrep Test Imaging System. Due to cytologic findings at the dental appliance fixer microscope, comprehensive manual rescreening by a Tablet Machine Operator may be required. The Pap Smear is a screening test designed to aid in the detection of premalignant and malignant conditions of the uterine cervix. It is not a diagnostic procedure and should not be used as the sole means of detecting cervical cancer. Both false- positive and false- negative reports do occur. Depending on your risk status, a Pap smear should be obtained and evaluated every 1-3 years. END OF REPORT * ML=Testing performed at Main Lab DEPARTMENT OF PATHOLOGY, [address] [place] [address] Brody Browning M.D. Director [facility] # [id number] 73 The high-risk HPV types detected by the assay include: 16, 18, 31, 33, 35, 39, 45, 51, 52, 56, 58, 59, 66, and 68. 74 HPV Source?: Thin Prep Trichomonas Source: Thin Prep 75 SEE RESULT BELOW Name: AMOL BARBOZA : [address]: Selina Samson MD Acct: [id number] Unit: [id number] AGE: 50 Location: [facility] Re02/17/16 SEX: F Status: REG REF SPEC: [id number] KOMAL: 02/17/16-[address]: Selina Samson MD REQ: [id number] RECD: 02/17/16 STATUS: COMP _ SOURCE: VAGINAL SPDESC: ORDERED: Tara,Yeast DNA Procedure Result Reported Site Gardnerella/Yeast: Vaginal DNA Final 02/18/16- 1059 ML Organism 1 Negative Gardnerella Organism 2 Negative Isabella The presence of G. vaginalis, although suggestive, is not diagnostic for bacterial vaginosis. Results should be interpreted in conjuction with other clinical and laboratory data available. Women with vaginal discharge should be evaluated for risk factors of cervicitis and pelvic inflammatory disease, toxic shock syndrome (S.aureus), and if present, evaluated for organisms not included in this assay such as N. gonorrhoeae, C. trachomatis, Mobiluncus, Mycoplasma and/or Prevotella. Mixed infections may occur. The performance of this test on patient specimens collected during or immediately after antimicrobial therapy is unknown. The presence or absence of Isabella species, or G. vaginalis cannot be used as a test for therapeutic success or failure. * ML - MAIN LAB ([facility]) . END OF REPORT * ML=Testing performed at Main Lab DEPARTMENT OF PATHOLOGY, [address] [place] [address] Brody Browning M.D. Director [facility] # [id number] 76 Because ethnic data is not always readily available, this report includes an eGFR for both -Americans and non- Americans. The National Kidney Disease Education Program (NKDEP) does not endorse the use of the MDRD equation for patients that are not between the ages of 18 and 70, are , have extremes of body size, muscle mass, or nutritional status, or are non- or non-. According to the National Kidney Foundation, irrespective of diagnosis, the stage of the disease is based on the level of kidney function: Stage Description GFR(mL/min/1.73 m(2)) 1 Kidney damage with normal or decreased GFR 90 2 Kidney damage with mild decrease in GFR 60-89 3 Moderate decrease in GFR 30-59 4 Severe decrease in GFR 15-29 5 Kidney failure <15 (or dialysis) 77 AM 8.7-22.4 PM <10 78 Desirable <150 Borderline high 150-199 High 200-499 Very High >500 79 Desirable <200 Borderline high 200-239 High >239 80 Low <40 Desirable: 40-60 High: >60 81 Desirable: <100 mg/dL Near Optimal: 100-129 mg/dL Borderline High: 130-159 mg/dL High: 160-189 mg/dL Very High: >189 mg/dL 82 Because ethnic data is not always readily available, this report includes an eGFR for both -Americans and non- Americans. The National Kidney Disease Education Program (NKDEP) does not endorse the use of the MDRD equation for patients that are not between the ages of 18 and 70, are , have extremes of body size, muscle mass, or nutritional status, or are non- or non-. According to the National Kidney Foundation, irrespective of diagnosis, the stage of the disease is based on the level of kidney function: Stage Description GFR(mL/min/1.73 m(2)) 1 Kidney damage with normal or decreased GFR 90 2 Kidney damage with mild decrease in GFR 60-89 3 Moderate decrease in GFR 30-59 4 Severe decrease in GFR 15-29 5 Kidney failure <15 (or dialysis) Procedures Date Code Description Status 10/09/2018 92981 EKG Tracing & Interpretation Completed 09/20/2018 00928 EKG Tracing & Interpretation Completed 05/17/2018 52659 EKG Tracing & Interpretation Completed 03/02/2018 56029 ECHO Transthoracic, Real-Time 2D With Doppler And Completed Color Flow 03/02/2018 38039 ECHO Transthoracic, Real-Time 2D With Doppler And Completed Color Flow 02/22/2018 68152 Treadmill Interp/Report Only Completed 02/22/2018 26276 Stress Test Supervsn W/Out I/R Completed 02/16/2018 63802 Plethysmography Determination Lung Volumes & Per Completed Airway Resist 02/16/2018 16177 Pulmonary Function><Bronchodil Completed 02/14/2018 23213 Holter Monitor Review (24 hr)dr review & interp only Completed 02/10/2018 35400 ECG Monitor/Recording W/Visual Superimposition Completed Scanning 02/03/2018 93127 EKG Tracing & Interpretation Completed 03/23/2017 [id number] Mammogram Completed 06/28/2016 [id number] Colonoscopy Completed 02/24/2016 [id number] Bone Mineral Density Test Completed 02/04/2016 [id number] Colonoscopy Completed 01/13/2016 80523071 Mammogram Completed 01/02/2016 [id number] Mammogram Completed 12/15/2015 37689 Arthroscopy,Shoulder Decompression Of Subacromial Completed Space W/Acromio 12/15/2015 00094 Arthroscopy,Shoulder Decompression Of Subacromial Completed Space W/Acromio 12/15/2015 21448 Arthroscopy Shoulder Debridement Limited Completed 12/15/2015 97964 Arthroscopy Shoulder Debridement Limited Completed 08/13/2015 34716 Inject/Drain Joint/Bursa Major W/O US Completed Encounters Type Date Location Provider Dx Diagnosis Office Visit 09/28/2018 Pulmonology [facility] Sleep Tanisha Kelly MD R06.83 Snoring 12:00p Services Of Sj J41.0 Simple chronic bronchitis E66.09 Other obesity due to excess calories Z68.31 Body mass index (BMI) 31.0-31.9, adult Office Visit 09/20/2018 Sj David Z01.818 Encounter for 9:00a Miguel Angel Damon M.D. other [place] preprocedural examination M51.17 Intvrt disc disorders w radiculopathy, lumbosacral region I10 Essential (primary) hypertension E11.9 Type 2 diabetes mellitus without complications R06.83 Snoring Office 08/23/2018 Neurosurgery Vassilios M47.26 Other spondylosis Visit 3:00p Services [facility] Ngo MD with radiculopathy, lumbar region M51.17 Intvrt disc disorders w radiculopathy, lumbosacral region M48.07 Spinal stenosis, lumbosacral region Office Visit 06/14/2018 7:40a Sj Damon, I10 Jami Onofre M.D. (primary) [place] hypertension E11.9 Type 2 diabetes mellitus without complications J44.9 Chronic obstructive pulmonary disease, unspecified M51.16 Intervertebral disc disorders w radiculopathy, lumbar region Office Visit 05/17/2018 [facility] Internal [place] Z01.818 Encounter for 8:00a Miguel Angel Damon M.D. other [place] preprocedural examination E11.9 Type 2 diabetes mellitus without complications Office 03/29/2018 Neurosurgery [place]ili[place] M47.26 Other spondylosis Visit 2:00p Services Of [facility] Ngo MD with radiculopathy, AT [place] lumbar region M51.16 Intervertebral disc disorders w radiculopathy, lumbar region M48.07 Spinal stenosis, lumbosacral region Office Visit 03/15/2018 [facility] [place] F17.210 Nicotine 7:40a Miguel Angel Damon M.D. dependence, [place] cigarettes, uncomplicated E11.9 Type 2 diabetes mellitus without complications J44.9 Chronic obstructive pulmonary disease, unspecified Z23 Encounter for immunization Office Visit 03/10/2018 8:40a Cardiology Qutaybeh S. R07.9 Chest pain, Services Of [facility]j Hooks M.D. unspecified [place] I49.1 Atrial premature depolarization I10 Essential (primary) hypertension E66.9 Obesity, unspecified F17.210 Nicotine dependence, cigarettes, uncomplicated Office 03/01/2018 Neurosurgery [place] M47.26 Other spondylosis Visit 2:00p Services Of [facility] Ngo MD with radiculopathy, [place] lumbar region M51.16 Intervertebral disc disorders w radiculopathy, lumbar region M48.07 Spinal stenosis, lumbosacral region Office Visit 02/07/2018 7:40a [facility] Michelle Damon, I10 Essential (primary) Miguel Angel Onofre M.D. hypertension [address] J44.9 Chronic obstructive pulmonary disease, unspecified F17.210 Nicotine dependence, cigarettes, uncomplicated E78.1 Pure hyperglyceridemia Office Visit 02/03/2018 9:00a Cardiology Qutaybeh S. I10 Essential Services Of Sj Hooks M.D. (primary) [place] hypertension F17.210 Nicotine dependence, cigarettes, uncomplicated E66.9 Obesity, unspecified R00.2 Palpitations G47.9 Sleep disorder, unspecified R07.9 Chest pain, unspecified R06.02 Shortness of breath R94.31 Abnormal electrocardiogram [ECG] [EKG] Office Visit 11/23/2017 [facility] [place] I10 Essential 7:40a Miguel Angel Damon M.D. (primary) [place] hypertension Office Visit 09/21/2017 [facility] Internal [place] F17.210 Nicotine 7:40a Miguel Angel Damon M.D. dependence, [place] cigarettes, uncomplicated M54.5 Low back pain Office Visit 08/10/2017 [facility] Internal [place] M51.16 Intervertebral disc 7:40a Miguel Angel Damon M.D. disorders w [place] radiculopathy, lumbar region F17.210 Nicotine dependence, cigarettes, uncomplicated Office Visit 07/20/2017 [facility] Internal [place] M51.16 Intervertebral disc 7:40a Miguel Angel Damon M.D. disorders w [place] radiculopathy, lumbar region M46.1 Sacroiliitis, not elsewhere classified Office Visit 06/08/2017 [facility] Internal [place] M51.16 Intervertebral disc 7:40a Miguel Angel Damon M.D. disorders w [place] radiculopathy, lumbar region I10 Essential (primary) hypertension F17.210 Nicotine dependence, cigarettes, uncomplicated Office Visit 05/16/2017 10:40a [facility] Internal Jaime Lopez M51.16 Intervertebral disc Medicine - SEATING AND MOBILITY TECHNOLOGIST disorders w [place] radiculopathy, lumbar region Office Visit 03/09/2017 11:20a [facility] [place] R20.2 Paresthesia of skin Negrita Ibrahim M.D. I10 Essential (primary) hypertension M51.16 Intervertebral disc disorders w radiculopathy, lumbar region Z12.39 Encounter for oth screening for malignant neoplasm of breast Office Visit 12/29/2016 2:40p [facility] Internal [place] Damon, I10 Essential Medicine - Laura (primary) [place] hypertension M51.16 Intervertebral disc disorders w radiculopathy, lumbar region Office Visit 08/25/2016 8:40a [facility] Internal Jaime Lopez, I10 Essential ( primary) Medicine - SEATING AND MOBILITY TECHNOLOGIST hypertension [place] M54.5 Low back pain Office Visit 07/28/2016 3:15p Orthopedic Jaxson 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 shoulder M75.41 Impingement syndrome of right shoulder Z47.89 Encounter for other orthopedic aftercare Z47.89 Encounter for other orthopedic aftercare Office Visit 04/09/2016 [facility] Internal Frankie I10 Essential 8:40a Miguel Angel Damon M.D. (primary) [place] hypertension Office Visit 03/25/2016 Orthopedic Diony Dunn.41 Impingement 9:15a Services Jalen Sanchez syndrome of right C.M.A. shoulder Z47.89 Encounter for other orthopedic aftercare G54.0 Brachial plexus disorders Office Visit 03/11/2016 8:00a [facility] Internal Frankie Damon, I10 Essential (primary) Medicine - Laura hypertension [address] E66.9 Obesity, unspecified Office Visit 02/06/2016 8:00a [facility] Internal Frankie Damon, I10 Essential Medicine - MTerrenceDTerrence (primary) [place] hypertension Z00.01 Encounter for general adult medical exam w abnormal findings D48.5 Neoplasm of uncertain behavior of skin Z12.11 Encounter for screening for malignant neoplasm of colon Z23 Encounter for immunization L98.9 Disorder of the skin and subcutaneous tissue, unspecified Office Visit 12/24/2015 8:20a [facility] Internal Frankie Damon, I10 Essential Medicine - M.DTerrence (primary) [place] hypertension R63.5 Abnormal weight gain Z12.39 Encounter for oth screening for malignant neoplasm of breast Office Visit 10/15/2015 7:40a [facility] Michelle David M75.80 Other shoulder Miguel Angel Damon M.D. lesions, [place] unspecified shoulder M75.41 Impingement syndrome of right shoulder Office Visit 10/01/2015 8:00a Orthopedic Kristy M75.80 Other shoulder Services Of JESSICA Flores lesions, C.M.A. unspecified shoulder M75.41 Impingement syndrome of right shoulder M75.41 Impingement syndrome of right shoulder Office Visit 09/03/2015 8:00a [facility] Internal Frankie M75.41 Impingement Medicine - Laura Damon syndrome of right [place] shoulder K21.9 Gastro-esophageal reflux disease without esophagitis Office Visit 07/22/2015 8:15a Orthopedic Jaxson Finn, 726.19 Shoulder Services Of M.Lenny Disorders Other C.M.A. Spec 726.2 Shoulder Region Affections Other Not Elsewhere Class 726.2 Shoulder Region Affections Other Not Elsewhere Class Office Visit 06/25/2015 2:00p Orthopedic Jaxson Finn, 840.4 Sprains & Services Of M.Lenny Strains Rotator C.M.A. Cuff (Capsule) 726.10 Bursae & Tendon Disorders Shoulder Region Unspec 726.10 Bursae & Tendon Disorders Shoulder Region Unspec Plan of Treatment Future Appointment(s):01/16/2019 9:30 am - Karuna Ngo MD at [facility]11/22/2018 9:00 am - Karuna Ngo MD at [facility]10/30/2018 3:00 pm - Karuna Ngo MD at [facility]12/27/2018 9:00 am - Frankie Damon M.D. at [facility] Internal Medicine [facility]10/19/2018 7:30 am - Karuna Ngo MD at [facility]10/11/2018 - Karuna Ngo, MDM51.16 Intervertebral disc disorders w radiculopathy, lumbar regionFollow up:Rv one week, one month, three months yatpclB53.896 Other spondylosis, lumbar region
--- OUTSIDE RECORDS SUMMARY | 2018-10-19 05:39 | XMS REPORT ---
:1965 External Reference #:[id number] Author Organization [employer] Address [address] [place] [address] [place] [address] Phone [phone] Care Team Providers Name Role Phone Frankie Damon MD Primary Care Physician Unavailable Payers Type Date Identification Numbers Payment Provider Subscriber Commercial Policy Number: [id number] BS Facets Amol Montoyaault PayID: [id number] [address] [address] [place] [address] Workers Effective: Policy Number: Selective Amol Hinson Compensation 2014 [id number] Insurance Jabari Onset: 2014 Group Name: [id number] [address] PayID: [place] [address] Problems Date Description Provider Status Onset: 06/25/2015 Strain of rotator cuff capsule Jaxson Finn M.D. Active Onset: 07/22/2015 Disorder of shoulder Jaxson Finn M.D. Active Onset: 12/24/2015 Essential hypertension Frankie Damon M.D. 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 Active Onset: 07/20/2017 Solitary sacroiliitis Frankie Damon M.D. Active Onset: 09/21/2017 Low back pain Frankie Damon M.D. Active Onset: 02/07/2018 Chronic obstructive lung disease Frankie Damon M.D. Active Onset: 02/07/2018 Pure hyperglyceridemia Frankie Damon M.D. 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 Active Onset: 03/25/2016 Encounter for other orthopedic Jaxson Finn M.D. Inactive aftercare Inactive: 11/23/2017 Onset: 06/10/2016 Bicipital tenosynovitis Jaxson Finn M.D. Inactive Inactive: 11/23/2017 Family History Date Family Member(s) Problem(s) Comments General Cancer General Diabetes General heart problems Father Colon Cancer Father Chronic Obstructive Pulmonary Disease (COPD) Mother Heart Disease Mother Aneursym-brain Mother maternal grandfather-[place] Mother Maternal grandmother-bone cancer Siblings 4 Social History Type Date Description Comments Marital Status Lives With Occupation Currently Working Occupation [employer] Cigarette Use Heavy tobacco smoker (more than 10 cigarettes/day) ETOH Use Rarely consumes alcohol Recreational Drug Use Denies Drug Use Smoking Patient is a former smoker quit April 302017 Daily Caffeine Consumes on average 3 cups of regular coffee per day Daily Caffeine consumes chocolate occasionally Daily Caffeine occassionally ice tea in the summer Exercise Type/Frequency Exercises rarely Allergies, Adverse Reactions, Alerts Date Description Reaction Status Severity Comments 05/21/2015 NKDA active 02/03/2018 Bees active swelling at site and itching. Medications Medication Date Status Form Strength Qnty SIG Indications Ordering Provider Hydrocodone-Acet 06/14 Active Tablets 5-325mg 120ta [address] [facility] aminophen /2017 bs 6h as needed Lenny Rossi M.D.,FACP Gabapentin 05/17 Active Capsules 300mg 90cap 2 cap in the morning 2 Christineikara caps in , M.DTerrence afternoon and 2 cap at night Metformin HCL 03/15 Active Tablets 500mg 60tab 1 by mouth E11.9 s twice a day Laura Damon Dulera 02/07 Active Aerosol 200-5mcg/ 8.800 2 puff twice J44.9 Act gm a day Laura Damon Ventolin HFA 02/07 Active Aerosol 108(90Bas 8gm 2 puffs by J44.9 e) mouth four Pachikara mcg/Act times a day , M.DTerrence as needed Ibuprofen 07/20 Active Tablets 600mg 45tab three times a M51.16 s day with Pach[place]ara food- as , M.D. needed per patient Lisinopril-[place] 03/11 Active Tablets 20-12.5mg 30tab take one I10 [place] chlorothiazide s tablet by Pachikara mouth every , M.D. day in the [...] 03/15 Hx Tablets 1mg 60tab take one 7. [place] s tablet by Nelson Jose Raul - mouth twice a , M.D. Chantix Starting 02/07 Hx Tablets 0.5mg X 1tabs as directed F17. [place] 11 & 1 mg Pachikara - X 42 , M.D. 03/15 Amberen 09/21 Hx [place] Nelson Onofre M.D. 02/02 Chantix 08/10 Hx Tablets 1mg 56tab Take One 7. [place] s Tablet By Christineika Jose Raul - Mouth Twice A , M.D. Hydrocodone-Acet 07/20 Hx Tablets 5-325mg 90tab 1 tab every M51.16 [place] amino s 8h as needed Nelson nOofre M.D. 06/14 Chantix Starting 06/08 Hx Tablets 0.5mg X 53tab Take By Mouth F17.210 [place] 11 & 1 mg s as Directed Pachikara - X 42 On Package , MTerrenceDTerrence 08/10 Hydrocodone-Acet 05/16 Hx Tablets 5-325mg 42tab take 1 M51.16 [place] aminophen s tablets every Pachikara - 8 hours for , M.D. 07/20 pain. Baclofen 05/16 Hx Tablets 10mg 45tab Take One-Half Jaime s Tablet By MAYURI Lopez - Mouth Every 8 09/21 Hours as Needed For Muscle Spasm, May Increase To One Tablet Every 8 Hours as Needed Tramadol HCL 12/29 Hx Tablets 50mg 120ta take two M51.16 Frankie bs tablets by Nelson - mouth twice a , M.D. 07/20 day as needed maximum daily dose=4 Naproxen 08/25 Hx Tablets 500mg 30tab 1 tablet with M54.5 Jaime s food by mouth MAYURI Lopez - twice a day 03/09 Tramadol HCL 08/25 Hx Tablets 50mg 45tab Take 1-2 M54.5 Jaime s Tablets By MAYURI Lopez - Mouth Every 8 08 Hours Needed For Pain; Maximum Daily Dose=4 [...] M.D.,FACP 10/15 Day With Food /2014 Lisinopril 00/00 Hx Tablets 10mg 30tab once a day [place] /0000 s Nelson Onofre M.D. 03/11 Cyclobenzaprine Hx Tablets 5mg 60tab take 1-2 [place] HCL /0000 s tablets by Christineika - [...] Code Status Date Vaccine Reaction Lot # [id number] Given 03/15/2018 Pneumonia Vaccine No immediate [id number] reaction...[id number] Given 02/06/2016 Tdap - [id number] Tetanus/Diptheria/Acellul ar Pertussis Vital Signs Date Vital Result Comment 09/28/2018 Height 65.5 inches 5'5.50" Weight 190.00 lb Heart Rate 60 /min BP Systolic Sitting 128 mmHg BP Diastolic Sitting 80 mmHg Respiratory Rate 14 /min O2 % BldC Oximetry 96 % BMI (Body Mass Index) 31.1 kg/m2 Neck Circumference in inches 15 09/20/2018 Height 65.5 inches 5'5.50" Weight 190.00 lb Heart Rate 96 /min BP Systolic Sitting 154 mmHg BP Diastolic Sitting 93 mmHg Body Temperature 97.9 F O2 % BldC Oximetry 98 % BMI (Body Mass Index) 31.1 kg/m2 08/23/2018 Height 65.5 inches 5'5.50" Weight 185.00 lb BP Systolic Sitting 150 mmHg BP Diastolic Sitting 80 mmHg Pain Level 6 BMI (Body Mass Index) 30.3 kg/m2 06/14/2018 Height 65.5 inches 5'5.50" Weight 185.25 lb Heart Rate 94 /min BP Systolic 138 mmHg BP Diastolic 86 mmHg Body Temperature 97.0 F O2 % BldC Oximetry 98 % BMI (Body Mass Index) 30.4 kg/m2 05/31/2018 Height 65.5 inches 5'5.50" Weight 197.00 lb Heart Rate 101 /min BP Systolic Sitting 118 mmHg BP Diastolic Sitting 64 mmHg Respiratory Rate 16 /min Pain Level 6 O2 % BldC Oximetry 97 % Ra BMI (Body Mass Index) 32.3 kg/m2 05/17/2018 Height 65.5 inches 5'5.50" Weight 196.00 lb Heart Rate 77 /min BP Systolic 143 mmHg BP Diastolic 79 mmHg O2 % BldC Oximetry 98 % BMI (Body Mass Index) 32.1 kg/m2 03/29/2018 Height 65.5 inches 5'5.50" Weight 197.00 lb Heart Rate 85 /min BP Systolic Sitting 118 mmHg BP Diastolic Sitting 68 mmHg Respiratory Rate 16 /min Pain Level 3 O2 % BldC Oximetry 98 % Ra BMI (Body Mass Index) 32.3 kg/m2 03/15/2018 Weight 197.00 lb Heart Rate 88 /min BP Systolic 118 mmHg BP Diastolic 80 mmHg Body Temperature 97.7 F O2 % BldC Oximetry 95 % 03/10/2018 Height 65.5 inches 5'5.50" Weight 199.00 lb [...] BMI (Body Mass Index) 32.6 kg/m2 03/01/2018 Height 65.5 inches 5'5.50" Weight 195.00 lb Heart Rate 92 /min BP Systolic Sitting 134 mmHg BP Diastolic Sitting 82 mmHg Respiratory Rate 16 /min Pain Level 5 O2 % BldC Oximetry 98 % Ra BMI (Body Mass Index) 32.0 kg/m2 02/07/2018 Weight 194.00 lb Heart Rate 83 /min BP Systolic 137 mmHg BP Diastolic 80 mmHg Body Temperature 97.6 F O2 % BldC Oximetry 98 % 02/03/2018 Height 65.50 inches 5'5.50" Weight 192.00 lb [...] BMI (Body Mass Index) 31.5 kg/m2 11/23/2017 Height 67 inches 5'7" Weight 188.50 lb Heart Rate 75 /min BP Systolic Sitting 110 mmHg BP Diastolic Sitting 78 mmHg O2 % BldC Oximetry 97 % BMI (Body Mass Index) 29.5 kg/m2 09/21/2017 Weight 181.50 lb Heart Rate 91 /min BP Systolic 108 mmHg BP Diastolic 70 mmHg Body Temperature 97.4 F O2 % BldC Oximetry 96 % 08/10/2017 Heart Rate 75 /min BP Systolic Sitting 130 mmHg BP Diastolic Sitting 80 mmHg O2 % BldC Oximetry 98 % 07/20/2017 Weight 183.00 lb Heart Rate 78 /min BP Systolic Sitting 124 mmHg BP Diastolic Sitting 80 mmHg Pain Level 4 O2 % BldC Oximetry 99 % 06/08/2017 Weight 188.25 lb Heart Rate 87 /min BP Systolic 128 mmHg BP Diastolic 80 mmHg Body Temperature 98.0 F O2 % BldC Oximetry 98 % 05/16/2017 Weight 188.25 lb Heart Rate 104 /min BP Systolic 136 mmHg BP Diastolic 78 mmHg Body Temperature 97.9 F O2 % BldC Oximetry 98 % 03/09/2017 Weight 185.00 lb Heart Rate 88 /min BP Systolic Sitting 136 mmHg BP Diastolic Sitting 86 mmHg O2 % BldC Oximetry 98 % 12/29/2016 Weight 185.00 lb Heart Rate 102 /min BP Systolic Sitting 124 mmHg BP Diastolic Sitting 80 mmHg Body Temperature 97.8 F Pain Level 8 O2 % BldC Oximetry 97 % 08/25/2016 Weight 185.00 lb Heart Rate 76 /min BP Systolic Sitting 132 mmHg BP Diastolic Sitting 82 mmHg Respiratory Rate 15 /min Body Temperature 98.5 F O2 % BldC Oximetry 98 % 07/28/2016 Height 67 inches 5'7" Weight 184.00 lb Pain Level 2 BMI (Body Mass Index) 28.8 kg/m2 06/10/2016 Height 67 inches 5'7" Weight 199.00 lb Pain Level 3 only when she moves the arm forward BMI (Body Mass Index) 31.2 kg/m2 04/29/2016 Height 67 inches 5'7" Weight 199.00 lb Heart Rate 64 /min BP Systolic Sitting 134 mmHg BP Diastolic Sitting 80 mmHg Respiratory Rate 16 /min Pain Level 5 8 at the worst BMI (Body Mass Index) 31.2 kg/m2 04/09/2016 Weight 195.00 lb Heart Rate 90 /min BP Systolic Sitting 130 mmHg BP Diastolic Sitting 81 mmHg Body Temperature 97.0 F 03/25/2016 Height 67 inches 5'7" Weight 199.00 lb Pain Level 5 plateau not getting better BMI (Body Mass Index) 31.2 kg/m2 03/11/2016 Height 67 inches 5'7" Weight 199.00 lb Heart Rate 80 /min BP Systolic Sitting 140 mmHg BP Diastolic Sitting 104 mmHg Body Temperature 97.9 F O2 % BldC Oximetry 98 % BMI (Body Mass Index) 31.2 kg/m2 02/25/2016 Height 67 inches 5'7" Weight 202.00 lb Pain Level 7 BMI (Body Mass Index) 31.6 kg/m2 02/17/2016 Weight 202.00 lb Heart Rate 86 /min BP Systolic Sitting 152 mmHg BP Diastolic Sitting 80 mmHg O2 % BldC Oximetry 96 % 02/06/2016 Height 65 inches 5'5" Weight 202.00 lb Heart Rate 82 /min BP Systolic Sitting 159 mmHg BP Diastolic Sitting 97 mmHg Body Temperature 97.7 F Pain Level 7 O2 % BldC Oximetry 98 % BMI (Body Mass Index) 33.6 kg/m2 01/14/2016 Height 67 inches 5'7" Weight 201.00 lb Pain Level 4 BMI (Body Mass Index) 31.5 kg/m2 12/24/2015 Height 67 inches 5'7" Weight 201.00 lb Heart Rate 88 /min BP Systolic Sitting 128 mmHg BP Diastolic Sitting 80 mmHg Respiratory Rate 15 /min Body Temperature 98.0 F Pain Level 8 O2 % BldC Oximetry 98 % BMI (Body Mass Index) 31.5 kg/m2 12/03/2015 Weight 205.00 lb Heart Rate 87 /min BP Systolic 140 mmHg BP Diastolic 98 mmHg Body Temperature 97.8 F 10/15/2015 Weight 205.00 lb Heart Rate 83 /min BP Systolic Sitting 153 mmHg BP Diastolic Sitting 95 mmHg Body Temperature 97.2 F 10/01/2015 Height 67 inches 5'7" Weight 204.00 lb Pain Level 6 BMI (Body Mass Index) 31.9 kg/m2 09/03/2015 Height 67 inches 5'7" Weight 207.00 lb Heart Rate 87 /min BP Systolic 138 mmHg BP Diastolic 90 mmHg Body Temperature 96.9 F Pain Level 5 BMI (Body Mass Index) 32.4 kg/m2 08/13/2015 Height 67 inches 5'7" Weight 204.00 lb Pain Level 8 BMI (Body Mass Index) 31.9 kg/m2 07/22/2015 Height 67 inches 5'7" Weight 206.00 lb Pain Level 6 BMI (Body Mass Index) 32.3 kg/m2 06/25/2015 Height 68 inches 5'8" Weight 205.00 lb Pain Level 5 increases with use BMI (Body Mass Index) 31.2 kg/m2 06/25/2015 Weight 202.00 lb Heart Rate 85 /min BP Systolic Sitting 132 mmHg BP Diastolic Sitting 82 mmHg Body Temperature 97.7 F 06/11/2015 Weight 205.00 lb Heart Rate 88 /min BP Systolic Sitting 143 mmHg BP Diastolic Sitting 87 mmHg Body Temperature 96.8 F 05/21/2015 Height 66 inches 5'6" Weight 204.50 lb Heart Rate 83 /min BP Systolic Sitting 168 mmHg BP Diastolic Sitting 98 mmHg Pain Level 8 Shoulder O2 % BldC Oximetry 98 % BMI (Body Mass Index) 33.0 kg/m2 Results Test Date Test Result H/L Range Note Drug Abuse 20 Urine 06/14/2018 Urine Amphetamine Negative ng/mL 1 Urine Barbiturates Presumptive Posi <SEE NOTE> ng/mL 2 Urine Benzodiazepines Negative ng/mL 3 Urine Cocaine Negative ng/mL 4 Urine Phencyclidine Negative ng/mL Cutoff: 25 Urine Tetrahydrocannabinol Negative ng/mL Cutoff: 50 5 Creatinine, Urine 43.3 mg/dL Specific [place] 1.009 pH 6.0 Oxidants Negative 6 Adulterants Comment Normal Codeine, Ur Not Detected ng/mL Cutoff: 25 7 Rchatlr-5-vpso-glucuronide, Ur Not Detected ng/mL 8 Morphine, Ur Not Detected ng/mL Cutoff: 25 9 Goyfvazw-9-zklp-glucuronide, U Not Detected ng/mL 10 6-monoacetylmorphine, Ur Not Detected ng/mL Cutoff: 25 11 Hydrocodone, Ur Present ng/mL Cutoff: 25 12 Norhydrocodone, Ur Present ng/mL Cutoff: 25 13 Dihydrocodeine, Ur Not Detected ng/mL Cutoff: 25 14 Hydromorphone, Ur Not Detected ng/mL Cutoff: 25 15 Yjydiufacpihw2pcvxusavvqpkwmt Not Detected ng/mL 16 Oxycodone, Ur Not Detected ng/mL Cutoff: 25 17 Noroxycodone, Ur Not Detected ng/mL Cutoff: 25 18 Oxymorphone, Ur Not Detected ng/mL Cutoff: 25 19 Nhwzewgnbpz-1-oytd-glucuronide Not Detected ng/mL 20 Noroxymorphone, Ur Not Detected ng/mL Cutoff: 25 21 Fentanyl, Ur Not Detected ng/mL Cutoff: 2 22 Norfentanyl, Ur Not Detected ng/mL Cutoff: 2 23 Meperidine, Ur Not Detected ng/mL Cutoff: 25 24 Normeperidine, Ur Not Detected ng/mL Cutoff: 25 25 Naloxone, Ur Not Detected ng/mL Cutoff: 25 26 Cyhkgazq-4-rehx-glucuronide, U Not Detected ng/mL 27 Methadone, Ur [...] Ur Not Detected ng/mL Cutoff: 50 35 Wapwxscbol-rema-hyjzlrhebme, U Not Detected ng/mL 36 Buprenorphine, Ur Not Detected ng/mL Cutoff: 5 37 Norbuprenorphine, Ur Not Detected ng/mL Cutoff: 5 38 Norbuprenorphine glucuronide Not Detected ng/mL Cutoff: 20 39 Opioid Interpretation See Comment 40 Barbiturate Confirm Urine 06/14/2018 Urine Butalbital by GC/MS 353 ng/mL 41 Urine Amobarbital by GC/MS Negative ng/mL 42 Urine Pentobarbital by GC/MS Negative ng/mL 43 Urine Secobarbital by GC/MS Negative ng/mL 44 Urine Phenobarbital by GC/MS Negative ng/mL 45 Urine Barbiturates Interp Positive. 46 Urine Nicotine 05/17/2018 Nicotine < 5.0 ng/mL <5.0 Cotinine < 5.0 ng/mL <5.0 Nornicotine < 2.0 ng/mL <2.0 Anabasine < 2.0 ng/mL <2.0 47 Urine Microalbumin Random 05/16/2018 Ur Microalbumin (mg/L) < 15.0 mg/L Urine Creatinine 81.81 mg/dL Urine Microalbumin/Creatinine TNP ug/mg <31 48 Lipid Profile (Trig/Chol/HDL) 05/16/2018 Triglycerides 452 mg/dL 49 Cholesterol 213 mg/dL 50 HDL Cholesterol 35.4 mg/dL 51 LDL Cholesterol (SEE NOTE) mg/dL 52 Laboratory test 05/16/2018 LDL Cholesterol Direct 102 mg/dL 53 finding Laboratory test 03/15/2018 Hemoglobin A1c 6.9 5-7 finding Laboratory test 01/26/2018 Troponin-I (TnI) 0.00 ng/mL <0.04 finding CBC Auto Diff 01/26/2018 White Blood Count 11.3 10^3/uL High 3.5-10.8 Red Blood Count 5.12 10^6/uL 4.0-5.4 Hemoglobin 17.3 g/dL High 12.0-16.0 Hematocrit 50 % High 35-47 Mean Corpuscular Volume 97 fL 80-97 Mean Corpuscular Hemoglobin 34 pg High 27-31 Mean Corpuscular HGB Conc 35 g/dL 31-36 Red Cell Distribution Width 13 % 10.5-15 Platelet Count 233 10^3/uL 150-450 54 Mean Platelet Volume 8 um3 7.4-10.4 Abs Neutrophils 7.5 10^3/uL 1.5-7.7 Abs Lymphocytes 2.9 10^3/uL 1.0-4.8 Abs Monocytes 0.6 10^3/uL 0-0.8 Abs Eosinophils 0.2 10^3/uL 0-0.6 Abs Basophils 0.1 10^3/uL 0-0.2 Abs Nucleated RBC 0 10^3/uL Granulocyte % 66.2 % 38-83 Lymphocyte % 25.7 % 25-47 Monocyte % 5.6 % 0-7 Eosinophil % 1.8 % 0-6 Basophil % 0.7 % 0-2 Nucleated Red Blood Cells % 0 Laboratory test finding 01/26/2018 Lactic Acid 1.8 mmol/L 0.5-2.0 55 B-Type Natriuretic Peptide BNP 24 pg/mL 56 Inr/Protime 01/26/2018 Inr 0.89 0.77-1.02 Laboratory test finding 01/26/2018 Partial Thrombo Time 31.7 seconds 26.0 -36.3 PTT Comp Metabolic Panel 01/26/2018 Sodium 137 mmol/L 133-145 Potassium 3.8 mmol/L 3.5-5.0 Chloride 100 mmol/L Low 101-111 Co2 Carbon Dioxide 29 mmol/L 22-32 Anion Gap 8 mmol/L 2-11 Glucose 132 mg/dL High 70-100 Blood Urea Nitrogen 13 mg/dL 6-24 Creatinine 0.81 mg/dL 0.51-0.95 BUN/Creatinine Ratio 16.0 8-20 Calcium 10.3 mg/dL 8.6-10.3 Total Protein 7.3 g/dL 6.4-8.9 Albumin 4.4 g/dL 3.2-5.2 Globulin 2.9 g/dL 2-4 Albumin/Globulin Ratio 1.5 1-3 Total Bilirubin 0.30 mg/dL 0.2-1.0 Alkaline Phosphatase 100 U/L 34-104 Alt 23 U/L 7-52 Ast 15 U/L 13-39 Egfr Non- 74.3 >60 Egfr 95.5 >60 57 Laboratory test finding 01/26/2018 Magnesium 2.2 mg/dL 1.9-2.7 Creatine Kinase(CK) 56 U/L 10-223 CKMB 01/26/2018 CKMB ng/mL 1.2 ng/mL 0.6-6.3 Laboratory test finding 01/26/2018 Troponin-I (TnI) 0.00 ng/mL <0.04 TSH (Thyroid Stim Horm) 0.76 mcIU/mL 0.34-5.60 Comp Metabolic Panel 07/18/2017 Sodium 138 mmol/L 133-145 Potassium 3.9 mmol/L 3.5-5.0 Chloride 101 mmol/L 101-111 Co2 Carbon Dioxide 31 mmol/L 22-32 Anion Gap 6 mmol/L 2-11 Glucose 128 mg/dL High 70-100 Blood Urea Nitrogen 12 mg/dL 6-24 Creatinine 0.84 mg/dL 0.51-0.95 BUN/Creatinine Ratio 14.3 8-20 Calcium 10.0 mg/dL 8.6-10.3 Total Protein 7.0 g/dL 6.4-8.9 Albumin 4.3 g/dL 3.2-5.2 Globulin 2.7 g/dL 2-4 Albumin/Globulin Ratio 1.6 1-3 Total Bilirubin 0.70 mg/dL 0.2-1.0 Alkaline Phosphatase 80 U/L 34-104 Alt 19 U/L 7-52 Ast 17 U/L 13-39 Egfr Non- 71.5 >60 Egfr 91.9 >60 58 Laboratory test finding 07/18/2017 TSH (Thyroid Stim 0.53 mcIU/mL 0.34- 5.60 59 Horm) CBC Auto Diff 07/18/2017 White Blood Count 8.6 10^3/uL 3.5-10.8 Red Blood Count 5.38 10^6/uL 4.0-5.4 Hemoglobin 18.2 g/dL High 12.0-16.0 Hematocrit 53 % High 35-47 Mean Corpuscular Volume 98 fL High 80-97 Mean Corpuscular Hemoglobin 34 pg High 27-31 Mean Corpuscular HGB Conc 35 g/dL 31-36 Red Cell Distribution Width 14 % 10.5-15 Platelet Count 264 10^3/uL 150-450 Mean Platelet Volume 9 um3 7.4-10.4 Abs Neutrophils 4.8 10^3/uL 1.5-7.7 Abs Lymphocytes 2.9 10^3/uL 1.0-4.8 Abs Monocytes 0.6 10^3/uL 0-0.8 Abs Eosinophils 0.2 10^3/uL 0-0.6 Abs Basophils 0 10^3/uL 0-0.2 Abs Nucleated RBC 0.01 10^3/uL Granulocyte % 55.9 % 38-83 Lymphocyte % 34.0 % 25-47 Monocyte % 7.6 % 1-9 Eosinophil % 2.0 % 0-6 Basophil % 0.5 % 0-2 Nucleated Red Blood Cells % 0.1 Lipid Profile (Trig/Chol/HDL) 07/18/2017 Triglycerides 331 mg/dL 60 Cholesterol 201 mg/dL 61 HDL Cholesterol 29.9 mg/dL 62 LDL Cholesterol 105 mg/dL 63 Laboratory test finding 07/18/2017 Cortisol 16.74 g/dL 64 Vitamin B12 And Folate Serum 03/23/2017 Vitamin B12 > 1450 pg/mL High 180- 914 65 Folic Acid (Folate) > 20.00 ng/mL >3.99 Wound Culture/Sensi 09/07/2016 Wound/Misc Culture-Gram SEE RESULT BELOW 66, 67 Stain HSV/VZV Derm PCR 09/07/2016 hs/VZ Source RIGHT SCALP 66 HSV 1 PCR Negative Negative 66 HSV 2 PCR Negative Negative 66, 68 Varicella Zoster Source RIGHT SCALP 66 Varicella Zoster Result Positive Negative 66, 69 Laboratory test finding 06/28/2016 Surgical Pathology SEE RESULT BELOW 70, 71 Laboratory test finding 02/17/2016 Gardnerella/Yeast: SEE RESULT BELOW 72 Vaginal Dna Laboratory test finding 02/17/2016 Cytology SEE RESULT BELOW 73 HPV Rna Ww/Reflex Genotype Negative Negative 74 Trichomonas Vaginalis Rna Negative Negative 75 Comp Metabolic Panel 01/02/2016 Sodium 133 mmol/L 133-145 Potassium 4.0 mmol/L 3.5-5.0 Chloride 100 mmol/L Low 101-111 Co2 Carbon Dioxide 27 mmol/L 22-32 Anion Gap 6 mmol/L 2-11 Glucose 174 mg/dL High 70-100 Blood Urea Nitrogen 10 mg/dL 6-24 Creatinine 0.80 mg/dL 0.51-0.95 BUN/Creatinine Ratio 12.5 8-20 Calcium 8.9 mg/dL 8.6-10.3 Total Protein 6.3 g/dL Low 6.4-8.9 Albumin 4.1 g/dL 3.2-5.2 Globulin 2.2 g/dL 2-4 Albumin/Globulin Ratio 1.9 1-3 Total Bilirubin 0.50 mg/dL 0.2-1.0 Alkaline Phosphatase 83 U/L 34-104 Alt 31 U/L 7-52 Ast 24 U/L 13-39 Egfr Non- 75.9 >60 Egfr 97.6 >60 76 Laboratory test finding 01/02/2016 TSH (Thyroid Stim Horm) 0.77 ?IU/mL 0.34-5.60 CBC Auto Diff 01/02/2016 White Blood Count 7.3 10^3/uL 3.5-10.8 Red Blood Count 5.02 10^6/uL 4.0-5.4 Hemoglobin 16.2 g/dL High 12.0-16.0 Hematocrit 48 % High 35-47 Mean Corpuscular Volume 96 fL 80-97 Mean Corpuscular Hemoglobin 32 pg High 27-31 Mean Corpuscular HGB Conc 34 g/dL 31-36 Red Cell Distribution Width 13 % 10.5-15 Platelet Count 259 10^3/uL 150-450 Mean Platelet Volume 8 um3 7.4-10.4 Abs Neutrophils 5.6 10^3/uL 1.5-7.7 Abs Lymphocytes 1.0 10^3/uL 1.0-4.8 Abs Monocytes 0.5 10^3/uL 0-0.8 Abs Eosinophils 0.1 10^3/uL 0-0.6 Abs Basophils 0 10^3/uL 0-0.2 Abs Nucleated RBC 0 10^3/uL Granulocyte % 76.6 % 38-83 Lymphocyte % 14.1 % Low 25-47 Monocyte % 7.0 % 1-9 Eosinophil % 1.7 % 0-6 Basophil % 0.6 % 0-2 Nucleated Red Blood Cells % 0 Laboratory test finding 01/02/2016 Cortisol 8.53 ?g/dL 77 Lipid Profile (Trig/Chol/HDL) 01/02/2016 Triglycerides 390 mg/dL 78 Cholesterol 167 mg/dL 79 HDL Cholesterol 27.8 mg/dL 80 LDL Cholesterol 61 mg/dL 81 Comp Metabolic Panel 09/03/2015 Sodium 135 mmol/L 133-145 Potassium 4.3 mmol/L 3.5-5.0 Chloride 100 mmol/L Low 101-111 Co2 Carbon Dioxide 28 mmol/L 22-32 Anion Gap 7 mmol/L 2-11 Glucose 139 mg/dL High 70-100 Blood Urea Nitrogen 16 mg/dL 6-24 Creatinine 0.90 mg/dL 0.51-0.95 BUN/Creatinine Ratio 17.8 8-20 Calcium 9.4 mg/dL 8.6-10.3 Total Protein 6.6 g/dL 6.4-8.9 Albumin 4.4 g/dL 3.2-5.2 Globulin 2.2 g/dL 2-4 Albumin/Globulin Ratio 2.0 1-3 Total Bilirubin 0.60 mg/dL 0.2-1.0 Alkaline Phosphatase 73 U/L 34-104 Alt 30 U/L 7-52 Ast 15 U/L 13-39 Egfr Non- 66.5 >60 Egfr 85.6 >60 82 1 REFERENCE VALUE Cutoff: 500 [...] 100 11 Metabolite of heroin 12 Lortab, Norris, Vicodin; Also a very minor metabolite of [...] developed and its performance characteristics determined by [facility] in a manner consistent with CLIA requirements. This test has not been cleared or approved by the U.S. Food and Drug Administration. Test Performed by: [facility] [address] [place] [address] 41 REFERENCE VALUE Cutoff: 100 42 REFERENCE VALUE Cutoff: 100 43 REFERENCE VALUE Cutoff: 100 44 REFERENCE VALUE Cutoff: 100 45 REFERENCE VALUE Cutoff: 100 46 ADDITIONAL INFORMATION This report is intended for use in clinical monitoring and management of patients. It is not intended for use in employment-related testing. This test was developed and its performance characteristics determined by [facility] in a manner consistent with CLIA requirements. This test has not been cleared or approved by the U.S. Food and Drug Administration. Test Performed by: [facility] - [address] [id number] 47 ADDITIONAL INFORMATION This test was developed and its performance characteristics determined by [facility] in a manner consistent with CLIA requirements. This test has not been cleared or approved by the U.S. Food and Drug Administration. Test Performed by: [facility] [address] [place] [address] 48 Unable to calculate due to low [...] in tube. No "R" flags present 55 [facility] Severe Sepsis and Septic Shock Management Bundle [...] 5 Kidney failure <15 (or dialysis) 58 Because ethnic data is not always readily [...] 15-29 5 Kidney failure <15 (or dialysis) 59 FASTING 12 HOUR 60 Desirable <150 Borderline high 150-199 High 200-499 Very High >500 61 Desirable <200 Borderline high 200-239 High >239 62 Low <40 Desirable: 40-60 High: >60 63 Desirable: <100 mg/dL Near Optimal: 100-129 mg/dL Borderline High: 130-159 mg/dL High: 160-189 mg/dL Very High: >189 mg/dL 64 AM 8.7-22.4 PM <10 65 Normal Range 180 to 914 Indeterminate Range 145 to 180 Deficient Range <145 66 [id number] SEE RESULT BELOW Name: AMOL BARBOZA : [address]: New Dupont MD Acct: [id number] Unit: [id number] AGE: 50 Location: [facility] Re09/07/16 SEX: F Status: DEP ER SPEC: [id number] KOMAL: 09/07/16 [facility] DR: New Dupont MD REQ: [id number] RECD: 09/08/16 STATUS: COMP XENIA DR: Frankie Damon MD _ SOURCE: HEAD SPDESC: ORDERED: Culture Stain COMMENTS: [id number] Procedure Result Reported Site Wound/Misc Gram Stain Final 09/08/16- 1209 ML No Neutrophils Observed No Organisms Seen Wound/Misc Culture Final 09/10/16- 1227 ML Organism 1 NORMAL NHI Quantity 1+ * ML - [facility] . END OF REPORT * ML=Testing performed at Main Lab DEPARTMENT OF PATHOLOGY, [address] [place] [address] Brody Browning M.D. Director [facility] # [id number] ADDITIONAL INFORMATION This test was developed using an analyte specific reagent. Its performance characteristics were determined by [facility] in a manner consistent with CLIA requirements. This test has not been cleared or approved by the U.S. Food and Drug Administration. 69 ADDITIONAL INFORMATION This test was developed and its performance characteristics determined by [facility] in a manner consistent with CLIA requirements. This test has not been cleared or approved by the U.S. Food and Drug Administration. Test Performed by: [facility] [place] [address] [employer] Laborer: Jesus Calvo II, M.D., Ph.D. 70 [id number] 71 SEE RESULT BELOW Name: AMOL BARBOZA : [address]: Beto Babb MD Acct: [id number] Unit: [id number] AGE: 50 Location: [facility] Re06/28/16 SEX: F Status: REG REF SPEC: [id number] KOMAL: 06/28/16 [facility] DR: Beto Babb MD REQ: [id number] RECD: 06/28/16120 STATUS: MARCELLE OLSON DR: Frankie Damon MD _ ORDERED: LEVEL IV/2 COMMENTS: [id number] FINAL DIAGNOSIS 1. Colon, at 20 cm, [...] performed at Main Lab DEPARTMENT OF PATHOLOGY, [address] [place] [address] Brody Browning M.D. Director [facility] # [id number] 72 SEE RESULT BELOW Name: AMOL BARBOZA : [address]: Selina Samson MD Acct: [id number] Unit: [id number] AGE: 50 Location: [facility] Re02/17/16 SEX: F Status: REG REF SPEC: [id number] KOMAL: 02/17/[address]: Selina Samson MD REQ: [id number] RECD: 02/17/16 STATUS: COMP _ SOURCE: VAGINAL [...] or failure. * ML - MAIN LAB ([facility]) . END OF REPORT * ML=Testing performed at Main Lab DEPARTMENT OF PATHOLOGY, [address] [place] [address] Brody Browning M.D. Director [facility] # [id number] 73 SEE RESULT BELOW Name: AMOL BARBOZA : [address]: Selina Samson MD Acct: [id number] Unit: [id number] AGE: 50 Location: [facility] Re02/17/16 SEX: F Status: REG REF SPEC: [id number] KOMAL: 02/17/16-[address]: Selina Samson MD REQ: [id number] RECD: 02/17/16 STATUS: SOUT _ ORDERED: IMAGE [...] Signed (signature on file) OMID Leon(ASCP) 02/17 2614 This Pap test was evaluated with the assistance of the [employer] Test Imaging System. Due to cytologic findings at the cooking show host microscope, comprehensive manual rescreening by a Cpht may be required. The Pap Smear is [...] performed at Main Lab DEPARTMENT OF PATHOLOGY, [address] [place] [address] Brody Browning M.D. Director [facility] # [id number] 74 The high-risk HPV types detected by the assay include: 16, 18, 31, 33, 35, 39, 45, 51, 52, 56, 58, 59, 66, and 68. 75 HPV Source?: Thin Prep Trichomonas Source: Thin Prep 76 Because ethnic data is not always [...] Kidney failure <15 (or dialysis) Procedures Date CPT Code Description Status Comment 09/20/2018 36650 EKG Tracing & Interpretation Completed 05/17/2018 04780 EKG Tracing & Interpretation Completed 03/02/2018 91813 ECHO Transthoracic, Real-Time 2D Completed With Doppler And Color Flow 03/02/2018 62048 ECHO Transthoracic, Real-Time 2D Completed With Doppler And Color Flow 02/22/2018 74356 Treadmill Interp/Report Only Completed 02/22/2018 34187 Stress Test Supervsn W/Out I/R Completed 02/16/2018 50648 Plethysmography Determination Lung Completed Volumes & Per Airway Resist 02/16/2018 04773 Pulmonary Function><Bronchodil Completed 02/14/2018 44450 Holter Monitor Review (24 hr) Completed review & interp only 02/10/2018 51298 ECG Monitor/Recording W/Visual Completed Superimposition Scanning 02/03/2018 33299 EKG Tracing & Interpretation Completed 03/23/2017 Mammogram Completed 06/28/2016 Colonoscopy Completed 02/24/2016 Bone Mineral Density Test Completed 02/04/2016 Colonoscopy Completed Consult requested 01/13/2016 Mammogram Completed 01/02/2016 Mammogram Completed 12/15/2015 23892 Arthroscopy Shoulder Debridement Completed Limited 12/15/2015 09794 Arthroscopy Shoulder Debridement Completed Limited 12/15/2015 30625 Arthroscopy,Shoulder Decompression Completed Of Subacromial Space W/Acromio 12/15/2015 90552 Arthroscopy,Shoulder Decompression Completed Of Subacromial Space W/Acromio 08/13/2015 72729 Inject/Drain Joint/Bursa Major W/O Completed US Encounters Type Date Location Provider CPT E/M Dx Office Visit 08/23/2018 [facility] 62560 M47.26 3:00p Of Sj gNo MD M51.17 M48.07 Office Visit 06/14/2018 7:40a [facility] Internal Medicine Frankie Damon M.D. 07235 I10 [place] E11.9 J44.9 M51.16 Office Visit 05/17/2018 8:00a [facility] Internal Frankie Damon 31951 Z01.818 Miguel Angel Rees M.D. E11.9 Office Visit 03/29/2018 2:00p [facility] 89987 M47.26 Of Sj AT Matt Ngo MD M51.16 M48.07 Office Visit 03/15/2018 7:40a [facility] Internal Frankie Damon 58905 F17.210 Miguel Angel Rees M.D. E11.9 J44.9 Z23 Office Visit 03/10/2018 8:40a [facility] Gilbert 33547 R07.9 Of Sj AT Matt Hooks M.D. I49.1 I10 E66.9 F17.210 Office Visit 03/01/2018 2:00p [facility] 21150 M47.26 Of Sj AT Matt Ngo MD M51.16 M48.07 Office Visit 02/07/2018 7:40a [facility] Internal Medicine Frankie Damon M.D. 11783 I10 - [address] J44.9 F17.210 E78.1 Office Visit 02/03/2018 9:00a [facility] Of Bernadette Hooks , 96997 I10 Sj Gutierrez M.D. F17.210 E66.9 R00.2 G47.9 R07.9 R06.02 R94.31 Office Visit 11/23/2017 7:40a [facility] Internal Frankie Damon 04306 I10 Miguel Angel Rees M.D. Office Visit 09/21/2017 7:40a [facility] Michelle Damon 74415 F17.210 Miguel Angel Rees M.D. M54.5 Office Visit 08/10/2017 7:40a [facility] Internal Frankie Damon, 14362 M51.16 Medicine - Negrita Sanchez F17.210 Office Visit 07/20/2017 7:40a [facility] Internal Frankie Damon, 59138 M51.16 Medicine - [place] Laura M46.1 Office Visit 06/08/2017 7:40a [facility] Internal Frankie Damon, 34086 M51.16 Medicine - [place] Laura I10 F17.210 Office Visit 05/16/2017 10:40a [facility] Internal Medicine Jaime Lopez, MAYURI 98690 M51.16 - [place] Office Visit 03/09/2017 11:20a [facility] Internal Medicine Frankie Damon 67696 R20.2 - [place] Laura I10 M51.16 Z12.39 Office Visit 12/29/2016 2:40p [facility] Medicine Frankie Damon M.D. 81406 I10 - [place] M51.16 Office Visit 08/25/2016 8:40a [facility] Internal Medicine - Jaime Lopez, MAYURI 17072 I10 [place] M54.5 Office Visit 07/28/2016 3:15p [facility] 61530 M75.41 Estefany Sanchez Z47.89 Office Visit 06/10/2016 2:15p [facility] 78962 M75.41 C.Анна Sanchez M75.21 Office Visit 04/29/2016 8:00a [facility] 38943 M75.41 C.Анна Sanchez M75.41 Z47.89 Z47.89 Office Visit 04/09/2016 8:40a [facility] Medicine Frankie Damon 65911 I10 - Negrita Sanchez Office Visit 03/25/2016 9:15a [facility] Finn M.D. 91113 M75.41 Of C.Анна Z47.89 G54.0 Office Visit 03/11/2016 8:00a [facility] Medicine Frankie Damon M.D. 49877 I10 - [address] E66.9 Office Visit 02/06/2016 8:00a [facility] Medicine Frankie Damon M.D. 43922 I10 - [place] Z00.01 D48.5 Z12.11 Z23 L98.9 Office Visit 12/24/2015 8:20a [facility] Medicine Frankie Damon M.D. 33347 I10 - [place] R63.5 Z12.39 Office Visit 10/15/2015 7:40a [facility] Internal Frankie Damon, 80012 M75.80 Medicine - Negrita Sanchez M75.41 Office Visit 10/01/2015 8:00a [facility] Kristy Flores, 68282 M75.80 C.M.ATerrence ANP-C M75.41 M75.41 Office Visit 09/03/2015 8:00a [facility] Internal Frankie Damon, 77713 M75.41 Medicine Jemima Rees M.D. K21.9 Office Visit 07/22/2015 8:15a [facility], 82942 726.19 C.M.A. Laura 726.2 726.2 Office Visit 06/25/2015 2:00p [facility] Finn M.D. 93800 840.4 C.M.A. 726.10 726.10 Plan of Care Future Appointment(s):09/29/2018 9:15 am - Carol Velazco DNP, RN, FREIGHT CLERK- at [facility]12/27/2018 9:00 am - Frankie Damon M.D. at [facility] Internal Medicine [facility]10/19/2018 10:00 am - Karuna Ngo MD at [facility]10/11/2018 9:00 am - Karuna Ngo MD at [facility]09/28/2018 - Tanisha Kelly, MDR06.83 SnoringNew Orders:Home Sleep TestingFollow up:1 weekJ41.0 Simple chronic uzwyludbxqJ79.09 Other obesity due to excess calories
--- OUTSIDE RECORDS SUMMARY | 2018-10-19 05:39 | XMS REPORT | Continuity of Care Document ---
:1965 External Reference #:[id number] Author Name Micheline Winters Care Team Providers Name Role Phone Frankie Damon MD Primary Care Physician Unavailable Payers Type Date Identification Numbers Payment Provider Subscriber Policy Number: [id number] BS Facets Amol Barboza PayID: [id number] [address] [address] [place] [address] Effective: 2014 Policy Number: [employer] Amol Barboza [id number] Onset: 2014 Group Name: [id number] [address] PayID: RAMONA Henriquez [id number] Advance Directives Description No Information Available Problems [...] Mother Heart Disease Mother Aneursym-brain Mother maternal grandfather-ME Mother Maternal grandmother-bone cancer Siblings 4 Social History Type Date Description Comments Sex Unknown Marital Status Lives With Occupation Currently Working [employer] Tobacco Use Start: Unknown End: Former Cigarette Smoker Unknown Smoking Status Reviewed: 10/09/18 Former Cigarette Smoker ETOH Use 10/09/2018 Rarely [...] Tablets 5-325mg 120ta 1 tab every M51.16 [facility] /2017 bs 6h as needed Lenny Rossi M.D.,FACP Gabapentin 05/17 Active Capsules 300mg 90cap 2 cap in the s morning 2 Pachikara caps in , M.DTerrence afternoon and 2 cap at night Metformin HCL 03/15 Active Tablets 500mg 60tab 1 by mouth E11.9 s twice a day Laura Damon Ventolin HFA 02/07 Active Aerosol 108(90Bas 8gm 2 puffs by J44.9 e) mouth four Pachikara mcg/Act times a day M.D. as needed Ibuprofen 07/20 Active Tablets 600mg 45tab three times a M51.16 s day with Christineika food- as , M.D. needed per patient Lisinopril-[place] 03/11 Active Tablets 20-12.5mg 30tab take one I10 chlorothiazide s tablet by Christineika mouth every , M.D. day in the [...] Hx Tablets 1mg 60tab take one 7. Onia s tablet by Nelson Jose Raul - mouth twice a , M.D. Chantix Starting 02/07 Hx Tablets 0.5mg X 1tabs as directed F17.210 Onia 11 & 1 mg Christineikara - Merrick He , Laura 03/15 Dulera 02/07 Hx Aerosol 200-5mcg/ 8.800 2 puff twice J44.9 Act gm a day Nelson Onofre M.D. 10/09 Amberen 09/21 Hx Nelson Onofre M.D. 02/02 Chantix 08/10 Hx Tablets 1mg 56tab Take One F17. Onia s Tablet By Nelson Blunt - Mouth Twice A , M.D. Hydrocodone-Acet 07/20 Hx Tablets 5-325mg 90tab 1 tab every M51.16 Onia aminophen s 8h as needed Nelson Onofre M.D. 06/14 Chantix Starting 06/08 Hx Tablets 0.5mg X 53tab Take By Mouth F17.210 Onia 11 & 1 mg s as Directed Pachikara - X 42 On Package , Laura 08/10 Hydrocodone-Acet 05/16 Hx Tablets 5-325mg 42tab take 1 M51.16 Onia aminophen s tablets every Pachikara - 8 hours for , M.D. 07/20 pain. Baclofen 05/16 Hx Tablets 10mg 45tab Take One-Half Jaime s Tablet By MAYURI Lopez - Mouth Every 8 09/21 Hours as Needed For Muscle Spasm, May Increase To One Tablet Every 8 Hours as Needed Tramadol HCL 12/29 Hx Tablets 50mg 120ta take two M51.16 bs tablets by Nelson - mouth twice a , M.D. 07/20 day as needed maximum daily dose=4 Naproxen 08/25 Hx Tablets 500mg 30tab 1 tablet with M54.5 Jaime s food by mouth MAYURI Lopez - twice a day 03/09 Tramadol HCL 08/25 Hx Tablets 50mg 45tab Take 1-2 M54.5 Jaime s Tablets By MAYURI Lopez - Mouth Every 8 12/29 Hours Needed For Pain; Maximum Daily Dose=4 [...] Capsules 200mg 30cap once daily M75.41 s Nelson - M.DTerrence 12/03 Meloxicam 05/21 Hx Tablets 15mg 30tab Take One M75.80 [place] s Tablet By Lenny Rossi, - Mouth Every M.D.,FACP 10/15 Day With Food Lisinopril 00/00 Hx Tablets 10mg 30tab once a day Onia /0000 s Nelson - RangelDTerrence 03/11 Cyclobenzaprine 00 Hx Tablets 5mg 60tab take 1-2 Onia HCL /0000 s tablets by Pachika - mouth twice a , M.D. 05/16 day needed, no driving after taking cyclobenzapri ne Vitamin B-12 00 Hx Tablets 50mcg Unknown /0000 - 02/02 Multi For Her 00 Hx Tablets Unknown 50+ /0000 - 02/02 [...] Code Status Date Vaccine Reaction Lot # [id number] Given 03/15/2018 Pneumonia Vaccine No immediate [id number] reaction...[id number] Given 02/06/2016 Tdap - [id number] Tetanus/Diptheria/Acellul ar Pertussis Vital Signs Date Vital Result Comment 10/09/2018 1:42pm Height 65.5 inches 5'5.50" Weight [...] Result H/L Range Note Laboratory test 10/09/2018 [facility] Hemoglobin A1c 6.9 5-7 finding Order 10/09/2018 [facility] EKG <pending> Drug Abuse 20 06/14/2018 [facility] Urine Amphetamine Negative [address] ng/[place] [address] [phone] Urine Barbiturates Presumptive Posi <SEE NOTE> Abnormal 2 ng/mL Urine Benzodiazepines Negative ng/mL 3 Urine Cocaine Negative ng/mL 4 Urine Phencyclidine Negative ng/mL Cutoff: 25 Urine Tetrahydrocannabinol Negative ng/mL Cutoff: 50 5 Creatinine, Urine 43.3 mg/dL Specific Hallock 1.009 pH 6.0 Oxidants Negative 6 Adulterants Comment Normal Codeine, Ur Not Detected ng/mL Cutoff: 25 7 Biodiou-3-xfym-glucuronide, Ur Not Detected ng/mL 8 Morphine, Ur Not Detected ng/mL Cutoff: 25 9 Hdaiewjn-0-lffm-glucuronide, U Not Detected ng/mL 10 6-monoacetylmorphine, Ur Not Detected ng/mL Cutoff: 25 11 Hydrocodone, Ur Present ng/mL Abnormal Cutoff: 25 12 Norhydrocodone, Ur Present ng/mL Abnormal Cutoff: 25 13 Dihydrocodeine, Ur Not Detected ng/mL Cutoff: 25 14 Hydromorphone, Ur Not Detected ng/mL Cutoff: 25 15 Qjbgvxpxvqffx9ftuqchumfjnguhp Not Detected ng/mL 16 Oxycodone, Ur Not Detected ng/mL Cutoff: 25 17 Noroxycodone, Ur Not Detected ng/mL Cutoff: 25 18 Oxymorphone, Ur Not Detected ng/mL Cutoff: 25 19 Urckyyckkyi-3-meyu-glucuronide Not Detected ng/mL 20 Noroxymorphone, Ur Not Detected ng/mL Cutoff: 25 21 Fentanyl, Ur Not Detected ng/mL Cutoff: 2 22 Norfentanyl, Ur Not Detected ng/mL Cutoff: 2 23 Meperidine, Ur Not Detected ng/mL Cutoff: 25 24 Normeperidine, Ur Not Detected ng/mL Cutoff: 25 25 Naloxone, Ur Not Detected ng/mL Cutoff: 25 26 Ipmajtrh-3-dzgl-glucuronide, U Not Detected ng/mL 27 Methadone, Ur [...] Ur Not Detected ng/mL Cutoff: 50 35 Tyaqlnnrlt-zsxe-nekefyrctwf, U Not Detected ng/mL 36 Buprenorphine, Ur Not Detected ng/mL Cutoff: 5 37 Norbuprenorphine, Ur Not Detected ng/mL Cutoff: 5 38 Norbuprenorphine glucuronide Not Detected ng/mL Cutoff: 20 39 Opioid Interpretation See Comment 40 Barbiturate Confirm 06/14/2018 [facility] Urine Butalbital 353 ng/mL [address] by GC/[place] [address] [phone] Urine Amobarbital by GC/MS Negative ng/mL 42 Urine Pentobarbital by GC/MS Negative ng/mL 43 Urine Secobarbital by GC/MS Negative ng/mL 44 Urine Phenobarbital by GC/MS Negative ng/mL 45 Urine Barbiturates Interp Positive. 46 Urine Nicotine 05/17/2018 [facility] Nicotine < 5.0 ng/mL < 5.[address] [place] [address] [phone] Cotinine < 5.0 ng/mL <5.0 Nornicotine < 2.0 ng/mL <2.0 Anabasine < 2.0 ng/mL <2.0 47 Urine Microalbumin 05/16/2018 [facility] Ur Microalbumin < 15.[address] (mg/L) mg/[place] [address] [phone] Urine Creatinine 81.81 mg/dL Urine Microalbumin/Creatinine TNP ug/mg <31 48 Lipid Profile 05/16/2018 [facility] Triglycerides 452 mg/dL 49 (Trig/Chol/HDL) [address] [place] [address] [phone] Cholesterol 213 mg/dL 50 HDL Cholesterol 35.4 mg/dL 51 LDL Cholesterol (SEE NOTE) mg/dL 52 Laboratory test 05/16/2018 [facility] LDL Cholesterol 102 mg/dL [address] [place] [address] [phone] Laboratory test 03/15/2018 [facility] Hemoglobin A1c 6.9 5-7 finding Laboratory test 01/26/2018 [facility] Troponin-I (TnI) 0.00 ng/ mL <0.[address] [place] [address] [phone] CBC Auto Diff 01/26/2018 [facility] White Blood 11.3 High 3.5- [address] Count 10^3/uL 0.8 [place] [address] [phone] Red Blood Count 5.12 10^6/uL N 4.0-5.4 [...] Blood Cells % 0 Laboratory test 01/26/2018 [facility] Lactic Acid 1.8 mmol/L N 0.5-2.0 [address] [place] [address] [phone] B-Type Natriuretic Peptide BNP 24 pg/mL 56 Inr/Protime 01/26/2018 [facility] Inr 0.89 N 0.77-1.[address] [place] [address] [phone] Laboratory test 01/26/2018 [facility] Partial 31.7 seconds N 26.0-36.[address] [place] [address] PTT [phone] Comp Metabolic 01/26/2018 [facility] Sodium 137 mmol/L N 133- [address] [place] [address] [phone] Potassium 3.8 mmol/L N 3.5-5.0 Chloride 100 [...] Egfr 95.5 >60 57 Laboratory test 01/26/2018 [facility] Magnesium 2.2 mg/dL N 1.9-2.[address] [place] [address] [phone] Creatine Kinase(CK) 56 U/L N 10-223 CKMB 01/26/2018 [facility] CKMB ng/mL 1.2 ng/mL N 0.6-6.[address] [place] [address] [phone] Laboratory test 01/26/2018 [facility] Troponin-I 0.00 ng/mL < 0.04 finding 101 (TnI) [place] [address] [phone] TSH (Thyroid Stim Horm) 0.76 mcIU/mL N 0.34-5.60 CBC Auto Diff 07/18/2017 [facility] White Blood 8.6 10^3/uL N 3.5-10.[address] [place] [address] [phone] Red Blood Count 5.38 10^6/uL N 4.0-5.4 [...] Blood Cells % 0.1 N Laboratory 07/18/2017 [facility] TSH (Thyroid Stim 0.53 N 0.34 -5.60 58 test finding [address] Horm) mcIU/[place] [address] [phone] Lipid Profile 07/18/2017 [facility] Triglycerides 331 mg/dL N 59 (Trig/Chol/HDL [address] ) [place] [address] [phone] Cholesterol 201 mg/dL N 60 HDL Cholesterol 29.9 mg/dL N 61 LDL Cholesterol 105 mg/dL N 62 Laboratory test 07/18/2017 [facility] Cortisol 16.74 g/dL N [address] [place] [address] [phone] Comp Metabolic 07/18/2017 [facility] Sodium 138 mmol/L N 133- [address] [place] [address] [phone] Potassium 3.9 mmol/L N 3.5-5.0 Chloride 101 [...] 91.9 N >60 64 Vitamin B12 03/23/2017 [facility] Vitamin B12 > 1450 High 180- 914 65 And Folate [address] pg/mL Serum [place], [place] [id number] [phone] Folic Acid (Folate) > 20.00 ng/mL N >3.99 Wound 09/07/2016 [facility] Wound/Misc SEE RESULT 66, 67 Culture/Sensi [address] [place] [address] Stain [phone] HSV/VZV Derm PCR 09/07/2016 [facility] hs/VZ Source RIGHT N [address] SCALP [place], [place] [address] [phone] HSV 1 PCR Negative N Negative HSV 2 PCR Negative N Negative 68 Varicella Zoster Source RIGHT SCALP N Varicella Zoster Result Positive N Negative 69 Laboratory test 06/28/2016 [facility] Surgical SEE RESULT 70, [address] Pathology BELOW [place], [place] [phone] [phone] Laboratory test 02/17/2016 [facility] Cytology SEE RESULT [address] BELOW [place], [place] [address] [phone] HPV Rna Ww/Reflex Genotype Negative N Negative 73 Trichomonas Vaginalis Rna Negative N Negative 74 Laboratory test 02/17/2016 [facility] Gardnerella/Yeast: SEE RESULT [address] [place] [address] [phone] Comp Metabolic 01/02/2016 [facility] Sodium 133 mmol/L N 133- Panel [address] [place] [address] [phone] Potassium 4.0 mmol/L N 3.5-5.0 Chloride 100 [...] 97.6 N >60 76 Laboratory test 01/02/2016 [facility] TSH (Thyroid 0.77 ?IU/mL N 0.34-5.[address] Stim Horm) [place] [address] [phone] CBC Auto Diff 01/02/2016 [facility] White Blood 7.3 10^3/uL N 3.5-10.[address] [place] [address] [phone] Red Blood Count 5.02 10^6/uL N 4.0-5.4 [...] Cells % 0 N Laboratory test 01/02/2016 [facility] Cortisol 8.53 ?g/dL N 77 finding [address] [place] [address] [phone] Lipid Profile 01/02/2016 [facility] Triglycerides 390 mg/dL N 78 (Trig/Chol/HDL) [address] [place] [address] [phone] Cholesterol 167 mg/dL N 79 HDL Cholesterol 27.8 mg/dL N 80 LDL Cholesterol 61 mg/dL N 81 Comp Metabolic Panel 09/03/2015 [facility] Sodium 135 mmol/L N 133-145 [address] [place] [address] [phone] Potassium 4.3 mmol/L N 3.5-5.0 Chloride 100 [...] codeine REFERENCE VALUE Cutoff: 100 9 Trang Bennett MS Contin; Also a minor metabolite (10%) of codeine and can be seen in low concentrations (<2,000 ng/mL) with poppy seed ingestion. 10 Metabolite of morphine REFERENCE VALUE Cutoff: 100 11 Metabolite of heroin 12 Lortab, Theodore, Vicodin; Also a very minor metabolite of [...] developed and its performance characteristics determined by [facility] in a manner consistent with CLIA requirements. This test has not been cleared or approved by the U.S. Food and Drug Administration. Test Performed by: [facility] [address], [place] [address] 41 REFERENCE VALUE Cutoff: 100 42 REFERENCE VALUE Cutoff: 100 43 REFERENCE VALUE Cutoff: 100 44 REFERENCE VALUE Cutoff: 100 45 REFERENCE VALUE Cutoff: 100 46 ADDITIONAL INFORMATION This report is intended for use in clinical monitoring and management of patients. It is not intended for use in employment-related testing. This test was developed and its performance characteristics determined by [facility] in a manner consistent with CLIA requirements. This test has not been cleared or approved by the U.S. Food and Drug Administration. Test Performed by: [facility] [address] [place] [address] 47 ADDITIONAL INFORMATION This test was developed and its performance characteristics determined by [facility] in a manner consistent with CLIA requirements. This test has not been cleared or approved by the U.S. Food and Drug Administration. Test Performed by: [facility] [address] [address] 48 Unable to calculate due to low [...] in tube. No "R" flags present 55 [facility] Severe Sepsis and Septic Shock Management Bundle [...] 145 to 180 Deficient Range <145 66 [id number] 67 SEE RESULT BELOW Name: AMOL BARBOZA : [address]: New Dupont MD Acct: [id number] Unit: [id number] AGE: 50 Location: [facility] Re09/07/16 SEX: F Status: DEP ER SPEC: [id number] KOMAL: 09/07/[address]: New Dupont MD REQ: [id number] RECD: 09/08/16 STATUS: JUAN OLSON DR: Frankie Damon MD _ SOURCE: HEAD SPDESC: ORDERED: Culture Stain COMMENTS: [id number] Procedure Result Reported Site Wound/Misc Gram Stain Final 09/08/16- 1209 ML No Neutrophils Observed No Organisms Seen Wound/Misc Culture Final 09/10/16- 1227 ML Organism 1 NORMAL NHI Quantity 1+ * ML - MAIN LAB ([facility]) . END OF REPORT * ML=Testing performed at Main Lab DEPARTMENT OF PATHOLOGY, [address] [place] [address] Brody Browning M.D. Director [facility] # [id number] 68 ADDITIONAL INFORMATION This test was developed using an analyte specific reagent. Its performance characteristics were determined by [facility] in a manner consistent with CLIA requirements. This test has not been cleared or approved by the U.S. Food and Drug Administration. 69 ADDITIONAL INFORMATION This test was developed and its performance characteristics determined by [facility] in a manner consistent with CLIA requirements. This test has not been cleared or approved by the U.S. Food and Drug Administration. Test Performed by: [place] [address] Tricot Knitter: Jesus Calov II, M.D., Ph.D. 70 [id number] 71 SEE RESULT BELOW Name: AMOL BARBOZA : [address]: Beto Babb MD Acct: [id number] Unit: [id number] AGE: 50 Location: [facility] Re06/28/16 SEX: F Status: REG REF SPEC: [id number] KOMAL: 06/28/1615 [facility] DR: Beto Babb MD REQ: [id number] RECD: 06/28/16 STATUS: MARCELLE OLSON DR: Frankie Damon MD _ ORDERED: LEVEL IV/2 COMMENTS: [id number] FINAL DIAGNOSIS 1. Colon, at 20 cm, [...] performed at Main Lab DEPARTMENT OF PATHOLOGY, [address] [place] [address] Brody Browning M.D. Director [facility] # [id number] 72 SEE RESULT BELOW Name: AMOL BARBOZA : [address]: Selina Samson MD Acct: [id number] Unit: [id number] AGE: 50 Location: [facility] Re02/17/16 SEX: F Status: REG REF SPEC: [id number] KOMAL: 02/17/16-[address]: Selina Samson MD REQ: [id number] RECD: 02/17/16 STATUS: SOUT _ ORDERED: IMAGE [...] Signed (signature on file) OMID Leon(ASCP) 02/17 1359 This Pap test was evaluated with the assistance of the [employer] Test Imaging System. Due to cytologic findings at the cook dessert microscope, comprehensive manual rescreening by a Job Analysis Manager may be required. The Pap Smear is [...] performed at Main Lab DEPARTMENT OF PATHOLOGY, [address] [place] [address] Brody Browning M.D. Director [facility] # [id number] 73 The high-risk HPV types detected by the assay include: 16, 18, 31, 33, 35, 39, 45, 51, 52, 56, 58, 59, 66, and 68. 74 HPV Source?: Thin Prep Trichomonas Source: Thin Prep 75 SEE RESULT BELOW Name: AMOL BARBOZA Sravan : [address]: Selina Samson MD Acct: [id number] Unit: [id number] AGE: 50 Location: [facility] Re02/17/16 SEX: F Status: REG REF SPEC: [id number] KOMAL: 02/17/16-[address]: Selina Samson MD REQ: [id number] RECD: 02/17/16 STATUS: COMP _ SOURCE: VAGINAL [...] or failure. * ML - MAIN LAB ([facility]) . END OF REPORT * ML=Testing performed at Main Lab DEPARTMENT OF PATHOLOGY, [address] [place] [address] Brody Browning M.D. Director [facility] # [id number] 76 Because ethnic data is not always [...] dialysis) Procedures Date Code Description Status 10/09/2018 22823 EKG Tracing & Interpretation Completed 09/20/2018 47848 EKG Tracing & Interpretation Completed 05/17/2018 88977 EKG Tracing & Interpretation Completed 03/02/2018 11123 ECHO Transthoracic, Real-Time 2D With Doppler And Completed Color Flow 03/02/2018 24572 ECHO Transthoracic, Real-Time 2D With Doppler And Completed Color Flow 02/22/2018 05281 Treadmill Interp/Report Only Completed 02/22/2018 43236 Stress Test Supervsn W/Out I/R Completed 02/16/2018 20494 Plethysmography Determination Lung Volumes & Per Completed Airway Resist 02/16/2018 79522 Pulmonary Function><Bronchodil Completed 02/14/2018 65478 Holter Monitor Review (24 hr)dr review & interp only Completed 02/10/2018 57177 ECG Monitor/Recording W/Visual Superimposition Completed Scanning 02/03/2018 04762 EKG Tracing & Interpretation Completed 03/23/2017 [id number] Mammogram Completed 06/28/2016 [id number] Colonoscopy Completed 02/24/2016 [id number] Bone Mineral Density Test Completed 02/04/2016 20295126 Colonoscopy Completed 01/13/2016 35449487 Mammogram Completed 01/02/2016 [id number] Mammogram Completed 12/15/2015 35821 Arthroscopy,Shoulder Decompression Of Subacromial Completed Space W/Acromio 12/15/2015 85012 Arthroscopy,Shoulder Decompression Of Subacromial Completed Space W/Acromio 12/15/2015 50795 Arthroscopy Shoulder Debridement Limited Completed 12/15/2015 97160 Arthroscopy Shoulder Debridement Limited Completed 08/13/2015 72152 Inject/Drain Joint/Bursa Major W/O US Completed Encounters Type Date Location Provider Dx Diagnosis Office Visit 09/28/2018 Pulmonology And Sleep Tanisha Kelly MD R06.83 Snoring 12:00p Services Of Sj J41.0 Simple chronic bronchitis E66.09 Other obesity due to excess calories Z68.31 Body mass index (BMI) 31.0-31.9, adult Office Visit 09/20/2018 [facility] Michelle David Z01.818 Encounter for 9:00a Miguel Angel Damon M.D. other [place] preprocedural examination M51.17 Intvrt disc disorders w radiculopathy, lumbosacral region I10 Essential (primary) hypertension E11.9 Type 2 diabetes mellitus without complications R06.83 Snoring Office 08/23/2018 Neurosurgery Vassilios M47.26 Other spondylosis Visit 3:00p Services Of Sj Ngo MD with radiculopathy, lumbar region M51.17 Intvrt disc disorders w radiculopathy, lumbosacral region M48.07 Spinal stenosis, lumbosacral region Office Visit 06/14/2018 7:40a Salena Naqvi Essential Miguel Angel Onofre M.D. (primary) [place] hypertension E11.9 Type 2 diabetes mellitus without complications J44.9 Chronic obstructive pulmonary disease, unspecified M51.16 Intervertebral disc disorders w radiculopathy, lumbar region Office Visit 05/17/2018 [facility] Michelle David Z01.818 Encounter for 8:00a Medicine - Pachikara, M.D. other [place] preprocedural examination E11.9 Type 2 diabetes mellitus without complications Office 03/29/2018 Neurosurgery Vassilios M47.26 Other spondylosis Visit 2:00p Services Of Sj Ngo MD with radiculopathy, AT [place] lumbar region M51.16 Intervertebral disc disorders w radiculopathy, lumbar region M48.07 Spinal stenosis, lumbosacral region Office Visit 03/15/2018 [facility] Internal Frankie F17.210 Nicotine 7:40a Miguel Angel Damon M.D. dependence, [place] cigarettes, uncomplicated E11.9 Type 2 diabetes mellitus without complications J44.9 Chronic obstructive pulmonary disease, unspecified Z23 Encounter for immunization Office Visit 03/10/2018 8:40a Cardiology Abhitavictoria S. R07.9 Chest pain, Services Of Sj Hooks M.D. unspecified AT [place] I49.1 Atrial premature depolarization I10 Essential (primary) hypertension E66.9 Obesity, unspecified F17.210 Nicotine dependence, cigarettes, uncomplicated Office 03/01/2018 Neurosurgery Vassilios M47.26 Other spondylosis Visit 2:00p Services Of Sj Ngo MD with radiculopathy, AT [place] lumbar region M51.16 Intervertebral disc disorders w radiculopathy, lumbar region M48.07 Spinal stenosis, lumbosacral region Office Visit 02/07/2018 7:40a Sj Damon, I10 Essential (primary) Miguel Angel Onofre M.D. hypertension [address] J44.9 Chronic obstructive pulmonary disease, unspecified F17.210 Nicotine dependence, cigarettes, uncomplicated E78.1 Pure hyperglyceridemia Office Visit 02/03/2018 9:00a Cardiology Qutamelindaeh S. I10 Essential Services Of Sj Hooks M.D. (primary) AT [place] hypertension F17.210 Nicotine dependence, cigarettes, uncomplicated E66.9 Obesity, unspecified R00.2 Palpitations G47.9 Sleep disorder, unspecified R07.9 Chest pain, unspecified R06.02 Shortness of breath R94.31 Abnormal electrocardiogram [ECG] [EKG] Office Visit 11/23/2017 Sj David I10 Essential 7:40a Miguel Angel Damon M.D. (primary) [place] hypertension Office Visit 09/21/2017 [facility] Internal Frankie F17.210 Nicotine 7:40a Miguel Angel Damon M.D. dependence, [place] cigarettes, uncomplicated M54.5 Low back pain Office Visit 08/10/2017 [facility] Internal Frankie M51.16 Intervertebral disc 7:40a Miguel Angel Damon M.D. disorders w [place] radiculopathy, lumbar region F17.210 Nicotine dependence, cigarettes, uncomplicated Office Visit 07/20/2017 [facility] Internal Frankie M51.16 Intervertebral disc 7:40a Miguel Angel Damon M.D. disorders w [place] radiculopathy, lumbar region M46.1 Sacroiliitis, not elsewhere classified Office Visit 06/08/2017 [facility] Internal Frankie M51.16 Intervertebral disc 7:40a Miguel Angel Damon M.D. disorders w [place] radiculopathy, lumbar region I10 Essential (primary) hypertension F17.210 Nicotine dependence, cigarettes, uncomplicated Office Visit 05/16/2017 10:40a [facility] Internal Jaime Lopez M51.16 Intervertebral disc Medicine - CRAYON SAWYER disorders w [place] radiculopathy, lumbar region Office Visit 03/09/2017 11:20a [facility] Internal Frankie R20.2 Paresthesia of skin Negrita Ibrahim M.D. I10 Essential (primary) hypertension M51.16 Intervertebral disc disorders w radiculopathy, lumbar region Z12.39 Encounter for oth screening for malignant neoplasm of breast Office Visit 12/29/2016 2:40p [facility] Internal Frankie Damon, I10 Essential Medicine Jemima Sanchez (primary) [place] hypertension M51.16 Intervertebral disc disorders w radiculopathy, lumbar region Office Visit 08/25/2016 8:40a [facility] Internal Jaime Lopez, I10 Essential ( primary) Medicine - CRAYON SAWYER hypertension [place] M54.5 Low back pain Office Visit 07/28/2016 3:15p Orthopedic Jaxson Vora.41 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 (primary) [place] hypertension Office Visit 03/25/2016 Orthopedic Jaxson Finn M75.41 Impingement 9:15a Services Jalen Sanchez syndrome of right C.M.A. shoulder Z47.89 Encounter for other orthopedic aftercare G54.0 Brachial plexus disorders Office Visit 03/11/2016 8:00a Slumber Room Attendant Michelle Damon, I1Aamir Essential (primary) Medicine - Laura hypertension [address] E66.9 Obesity, unspecified Office Visit 02/06/2016 8:00a [facility] Michelle Damon, I10 Essential Medicine - M.DTerrence (primary) [place] hypertension Z00.01 Encounter for general adult medical exam w abnormal findings D48.5 Neoplasm of uncertain behavior of skin Z12.11 Encounter for screening for malignant neoplasm of colon Z23 Encounter for immunization L98.9 Disorder of the skin and subcutaneous tissue, unspecified Office Visit 12/24/2015 8:20a [facility] Michelle Damon, I1Aamir Essential Medicine - M.DTerrence (primary) [place] hypertension R63.5 Abnormal weight gain Z12.39 Encounter for oth screening for malignant neoplasm of breast Office Visit 10/15/2015 7:40a Sj David M75.80 Other shoulder Miguel Angel Damon M.D. lesions, [place] unspecified shoulder M75.41 Impingement syndrome of right shoulder Office Visit 10/01/2015 8:00a Orthopedic Kristy M75.80 Other shoulder Services Of JESSICA Flores lesions, C.M.A. unspecified shoulder M75.41 Impingement syndrome of right shoulder M75.41 Impingement syndrome of right shoulder Office Visit 09/03/2015 8:00a Sj David M75.41 Impingement Medicine Jemima Damon M.D. syndrome of right [place] shoulder K21.9 Gastro-esophageal reflux disease without esophagitis Office Visit 07/22/2015 8:15a Orthopedic Jaxson Finn, 726.19 Shoulder Services Of Laura Disorders Other C.M.A. Spec 726.2 Shoulder Region Affections Other Not Elsewhere Class 726.2 Shoulder Region Affections Other Not Elsewhere Class Office Visit 06/25/2015 2:00p Orthopedic Jaxson Finn, 840.4 Sprains & Services Of Laura Strains Rotator C.M.A. Cuff (Capsule) 726.10 Bursae & Tendon Disorders Shoulder Region Unspec 726.10 Bursae & Tendon Disorders Shoulder Region Unspec Plan of Treatment Future Appointment(s):12/27/2018 9:00 am - Frankie Damon M.D. at [facility] Internal Medicine [facility]10/19/2018 10:00 am - Karuna Ngo MD at Neurosurgery Services Of [facility]10/09/2018 - Kolton Rossi M.D.,FACPZ01.818 Encounter for other preprocedural examinationComments:Patient is at low risk of cardiac or pulmonary complications of planned moderate risk surgery. Advised to ktxmpvfN06.16 Intervertebral disc disorders w radiculopathy, lumbar regionComments:Complete surgery with Dr. Ngo as planned. Continue taking current medications as prescribed.E11.9 Type 2 diabetes mellitus without complicationsComments:You are meeting goal for blood sugar control. Continue taking Metformin as prescribed. Do not take Metformin on the morning of your surgery. A yearly nutrition visit is available to all diabetics. Goals 10/09/2018 - Kolton Rossi M.D.,FACPE11.9 Type 2 diabetes mellitus without complicationsGoal Hemoglobin A1c is less than 7.0% in ages 18-74 Goal Hemoglobin A1c is between 7.0% and 8.0% in age over 75 Goal Blood pressure is less than 130/85.
--- OUTSIDE RECORDS SUMMARY | 2018-10-19 05:40 | XMS REPORT ---
:1965 External Reference #:[id number] Author Organization [employer] Address [address] [place] [address] [place] [address] Phone [phone] Care Team Providers Name Role Phone Frankie Damon MD Primary Care Physician Unavailable Payers Type Date Identification Numbers Payment Provider Subscriber Commercial Policy Number: [id number] BS Facets Amol Montoyaault PayID: [id number] [address] [address] [place] [address] Workers Effective: Policy Number: Selective Amol Hinson Compensation 2014 [id number] Insurance Jabari Onset: 2014 Group Name: [phone] [address] PayID: [place] [address] Problems Date Description Provider Status Onset: 06/25/2015 [...] Active Onset: 09/21/2017 Low back pain Frankie Daomn M.D. Active Onset: 02/07/2018 Chronic obstructive lung [...] Mother Heart Disease Mother Aneursym-brain Mother maternal grandfather-IN Mother Maternal grandmother-bone cancer Social History Type Date Description Comments Marital Status Lives With Occupation Currently Working Occupation [employer] Cigarette Use Heavy tobacco smoker (more than 10 cigarettes/day) ETOH Use Rarely consumes alcohol Recreational Drug Use Denies Drug Use Smoking Patient is a former smoker quit April 302017 Daily Caffeine Consumes on average 3 cups of regular coffee per day Daily Caffeine consumes chocolate occasionally Daily Caffeine occassionally ice tea in the summer Exercise Type/Frequency Does not exercise Allergies, Adverse Reactions, Alerts Date Description Reaction Status Severity Comments 05/21/2015 NKDA active 02/03/2018 Bees active swelling at site and itching. Medications Medication Date Status Form Strength Qnty SIG Indications Ordering Provider Hydrocodone-Acet 06/14 Active Tablets 5-325mg 120ta 1 tab every M51.16 [facility] aminophen /2017 bs 6h as needed Lenny [...] four Pachikara mcg/Act times a day , M.D. as needed Ibuprofen 07/20 Active Tablets 600mg 45tab three times a M51.16 s day with Pachikara food- as , M.D. needed per patient Lisinopril-[place] 03/11 Active Tablets 20-12.5mg 30tab take one I10 [place] chlorothiazide s tablet by Pachikara mouth every [...] Hx Tablets 1mg 60tab take one 7. [place] s tablet by Nelson Jose Raul - mouth twice a , M.DTerrenec Chantix Starting 02/07 Hx Tablets 0.5mg X 1tabs as directed F17. [place] 11 & 1 mg Pachikara - X 42 , M.D. 03/15 Amberen 09/21 Hx Frankie Nelson Onofre M.D. 02/02 Chantix 08/10 Hx Tablets 1mg 56tab Take One 7. [place] s Tablet By Nelson Jose Raul - Mouth Twice A , M.D. Hydrocodone-Acet 07/20 Hx Tablets 5-325mg 90tab 1 tab every M51.16 [place] amino s 8h as needed Nelson Onofre M.D. 06/14 Chantix Starting 06/08 Hx Tablets 0.5mg X 53tab Take By Mouth F17.210 [place] 11 & 1 mg s as Directed Pachikara - X 42 On Package , MTerrenceDTerrence 08/10 Hydrocodone-Acet 05/16 Hx Tablets 5-325mg 42tab take 1 M51.16 [place] aminophen s tablets every Pachikara - 8 [...] 30cap once daily M75.41 s Nelson - , M.D. 12/03 Meloxicam 05/21 Hx Tablets 15mg 30tab Take One M75.80 Kolton s Tablet By Lenny Rossi, - Mouth Every M.D.,FACP 10/15 Day With Food Lisinopril 00/00 Hx Tablets 10mg 30tab once a day Frankie /0000 s Nelson - RangelDTerrence 03/11 Cyclobenzaprine Hx Tablets 5mg 60tab take 1-2 [place] HCL /0000 s tablets by Pachika - [...] Code Status Date Vaccine Reaction Lot # [id number] Given 03/15/2018 Pneumonia Vaccine No immediate [id number] reaction...jh [id number] Given 02/06/2016 Tdap - [id number] Tetanus/Diptheria/Acellul ar Pertussis Vital Signs Date Vital Result Comment 09/20/2018 Height 65.5 inches 5'5.50" Weight 190.00 [...] 50 5 Creatinine, Urine 43.3 mg/dL Specific [place] 1.009 pH 6.0 Oxidants Negative 6 Adulterants Comment Normal Codeine, Ur Not Detected ng/mL Cutoff: 25 7 Venpxfi-9-mkai-glucuronide, Ur Not Detected ng/mL 8 Morphine, Ur Not Detected ng/mL Cutoff: 25 9 Caeuggjd-6-orjv-glucuronide, U Not Detected ng/mL 10 6-monoacetylmorphine, Ur Not Detected ng/mL Cutoff: 25 11 Hydrocodone, Ur Present ng/mL Cutoff: 25 12 Norhydrocodone, Ur Present ng/mL Cutoff: 25 13 Dihydrocodeine, Ur Not Detected ng/mL Cutoff: 25 14 Hydromorphone, Ur Not Detected ng/mL Cutoff: 25 15 Yzmvvboqqkkmd0yammfojbulhyclm Not Detected ng/mL 16 Oxycodone, Ur Not Detected ng/mL Cutoff: 25 17 Noroxycodone, Ur Not Detected ng/mL Cutoff: 25 18 Oxymorphone, Ur Not Detected ng/mL Cutoff: 25 19 Gyuvemajiig-1-jhmz-glucuronide Not Detected ng/mL 20 Noroxymorphone, Ur Not Detected ng/mL Cutoff: 25 21 Fentanyl, Ur Not Detected ng/mL Cutoff: 2 22 Norfentanyl, Ur Not Detected ng/mL Cutoff: 2 23 Meperidine, Ur Not Detected ng/mL Cutoff: 25 24 Normeperidine, Ur Not Detected ng/mL Cutoff: 25 25 Naloxone, Ur Not Detected ng/mL Cutoff: 25 26 Njfllquz-4-fnyp-glucuronide, U Not Detected ng/mL 27 Methadone, Ur [...] Ur Not Detected ng/mL Cutoff: 50 35 Zxatfolihr-ffth-gvjziuwqwgm, U Not Detected ng/mL 36 Buprenorphine, Ur [...] 0-2 Nucleated Red Blood Cells % 0.1 Laboratory test finding 07/18/2017 Cortisol 16.74 g/dL 60 Lipid Profile (Trig/Chol/HDL) 07/18/2017 Triglycerides 331 mg/dL 61 Cholesterol 201 mg/dL 62 HDL Cholesterol 29.9 mg/dL 63 LDL Cholesterol 105 mg/dL 64 Vitamin B12 And Folate Serum 03/23/2017 [...] 74 Trichomonas Vaginalis Rna Negative Negative 75 Lipid Profile (Trig/Chol/HDL) 01/02/2016 Triglycerides 390 mg/dL 76 Cholesterol 167 mg/dL 77 HDL Cholesterol 27.8 mg/dL 78 LDL Cholesterol 61 mg/dL 79 Laboratory test finding 01/02/2016 Cortisol 8.53 ?g/dL 80 CBC Auto Diff 01/02/2016 White Blood Count [...] Cells % 0 Laboratory test finding 01/02/2016 TSH (Thyroid Stim Horm) 0.77 ?IU/mL 0.34-5.60 Comp Metabolic Panel 01/02/2016 Sodium 133 mmol/L [...] Egfr Non- 75.9 >60 Egfr 97.6 >60 81 Comp Metabolic Panel 09/03/2015 Sodium 135 [...] REFERENCE VALUE Cutoff: 100 9 Trang Bennett, Contin; Also a minor metabolite (10%) of codeine and can be seen in low concentrations (<2,000 ng/mL) with poppy seed ingestion. 10 Metabolite of morphine REFERENCE VALUE Cutoff: 100 11 Metabolite of heroin 12 Lortab, [place], Vicodin; Also a very minor metabolite of [...] its performance characteristics determined by [facility] in a manner consistent with CLIA requirements. This test has not been cleared or approved by the U.S. Food and Drug Administration. Test Performed by: [facility] [address] [place] [address] 41 REFERENCE VALUE Cutoff: 100 42 REFERENCE VALUE Cutoff: 100 43 REFERENCE VALUE Cutoff: 100 44 REFERENCE VALUE Cutoff: 100 45 REFERENCE VALUE Cutoff: 100 46 ADDITIONAL INFORMATION This report is intended for use in clinical monitoring and management of patients. It is not intended for use in employment-related testing. This test was developed and its performance characteristics determined by [facility] in a manner consistent with CLIA requirements. This test has not been cleared or approved by the U.S. Food and Drug Administration. Test Performed by: [facility] - [address] [address] 47 ADDITIONAL INFORMATION This test was developed and its performance characteristics determined by [facility] in a manner consistent with CLIA requirements. This test has not been cleared or approved by the U.S. Food and Drug Administration. Test Performed by: [facility] - [address] [address] 48 Unable to calculate due to low [...] in tube. No "R" flags present 55 [facility] Severe Sepsis and Septic Shock Management [...] (or dialysis) 59 FASTING 12 HOUR 60 AM 8.7-22.4 PM <10 61 Desirable <150 Borderline high 150-199 High 200-499 Very High >500 62 Desirable <200 Borderline high 200-239 High >239 63 Low <40 Desirable: 40-60 High: >60 64 Desirable: <100 mg/dL Near Optimal: 100-129 mg/dL Borderline High: 130-159 mg/dL High: 160-189 mg/dL Very High: >189 mg/dL 65 Normal Range 180 to 914 Indeterminate Range 145 to 180 Deficient Range <145 66 [id number] 67 SEE RESULT BELOW Name: AMOL BARBOZA : [address]: New Dupont MD Acct: [id number] Unit: [id number] AGE: 50 Location: [facility] Re09/07/16 SEX: F Status: DEP ER SPEC: [id number] KOMAL: 09/07/[address] [facility] [address]: New Dupont MD REQ: [id number] RECD: 09/08/16 STATUS: JUAN OLSON DR: Frankie Damon MD _ SOURCE: HEAD SPDESC: ORDERED: Culture Stain COMMENTS: [id number] Procedure Result Reported Site Wound/Misc Gram Stain Final 09/08/16- 1209 ML No Neutrophils Observed No Organisms Seen Wound/Misc Culture Final 09/10/16- 1227 ML Organism 1 NORMAL NHI Quantity 1+ * ML - MAIN LAB ([facility]) . END OF REPORT * ML=Testing performed at Main Lab DEPARTMENT OF PATHOLOGY, [address] [place] [address] Brody Browning M.D. Director [facility] # [id number] 68 ADDITIONAL INFORMATION This test was developed using an analyte specific reagent. Its performance characteristics were determined by [facility] in a manner consistent with CLIA requirements. This test has not been cleared or approved by the U.S. Food and Drug Administration. 69 ADDITIONAL INFORMATION This test was developed and its performance characteristics determined by [facility] in a manner consistent with CLIA requirements. This test has not been cleared or approved by the U.S. Food and Drug Administration. Test Performed by: [facility] - [address] [address] Graduate Student: Jesus Calvo II, M.D., Ph.D. 70 [id number] 71 SEE RESULT BELOW Name: AMOL BARBOZA : [address]: Beto Babb MD Acct: [id number] Unit: [id number] AGE: 50 Location: [facility] Re06/28/16 SEX: F Status: REG REF SPEC: [id number] KOMAL: 06/28/16-[address] [facility] [address]: Beto Babb MD REQ: [id number] RECD: 06/28/16-1206 STATUS: MARCELLE OLSON DR: Frankie Damon MD _ ORDERED: LEVEL IV/2 COMMENTS: [id number] FINAL DIAGNOSIS 1. Colon, at 20 cm, [...] performed at Main Lab DEPARTMENT OF PATHOLOGY, [address] [place] [address] Brody Browning M.D. Director [facility] # [id number] 72 SEE RESULT BELOW Name: AMOL BARBOZA : [address]: Selina Samson MD Acct: [id number] Unit: [id number] AGE: 50 Location: [facility] Re02/17/16 SEX: F Status: REG REF SPEC: [id number] KOMAL: 02/17/16-[address]: Selina Samson MD REQ: [id number] RECD: 02/17/16 STATUS: COMP _ SOURCE: VAGINAL [...] or failure. * ML - MAIN LAB ([facility]) . END OF REPORT * ML=Testing performed at Main Lab DEPARTMENT OF PATHOLOGY, [address] [place] [address] Brody Browning M.D. Director [facility] # [id number] 73 SEE RESULT BELOW Name: AMOL BARBOZA : [address]: Selina Samson MD Acct: [id number] Unit: [id number] AGE: 50 Location: [facility] Re02/17/16 SEX: F Status: REG REF SPEC: [id number] KOMAL: 02/17/16-[address] [facility] [address]: Selina Samson MD REQ: [id number] RECD: 02/17/163 STATUS: SOUT _ ORDERED: IMAGE ANALYSIS, HPV/Thin [...] and 68. Signed (signature on file) OMID Leon(ASC) 02/17 4645 This Pap test was evaluated with the assistance of the [employer] MedicalPrep Test Imaging System. Due to cytologic findings at the carrot grader inspector microscope, comprehensive manual rescreening by a Tune Up Mechanic may be required. The Pap Smear is [...] performed at Main Lab DEPARTMENT OF PATHOLOGY, [address] [place] [address] Brody Browning M.D. Director [facility] # [id number] 74 The high-risk HPV types detected by the assay include: 16, 18, 31, 33, 35, 39, 45, 51, 52, 56, 58, 59, 66, and 68. 75 HPV Source?: Thin Prep Trichomonas Source: Thin Prep 76 Desirable <150 Borderline high 150-199 High 200-499 Very High >500 77 Desirable <200 Borderline high 200-239 High >239 78 Low <40 Desirable: 40-60 High: >60 79 Desirable: <100 mg/dL Near Optimal: 100-129 mg/dL Borderline High: 130-159 mg/dL High: 160-189 mg/dL Very High: >189 mg/dL 80 AM 8.7-22.4 PM <10 81 Because ethnic data is not always readily [...] 15-29 5 Kidney failure <15 (or dialysis) 82 Because ethnic data is not always [...] Procedures Date CPT Code Description Status Comment 05/17/2018 13441 EKG Tracing & Interpretation Completed 03/02/2018 86246 ECHO Transthoracic, Real-Time 2D Completed With Doppler And Color Flow 03/02/2018 72109 ECHO Transthoracic, Real-Time 2D Completed With Doppler And Color Flow 02/22/2018 09855 Treadmill Interp/Report Only Completed 02/22/2018 26256 Stress Test Supervsn W/Out I/R Completed 02/16/2018 60000 Plethysmography Determination Lung Completed Volumes & Per Airway Resist 02/16/2018 01247 Pulmonary Function><Bronchodil Completed 02/14/2018 07254 Holter Monitor Review (24 hr) Completed review & interp only 02/10/2018 86395 ECG Monitor/Recording W/Visual Completed Superimposition Scanning 02/03/2018 48875 EKG Tracing & Interpretation Completed 03/23/2017 Mammogram Completed 06/28/2016 Colonoscopy Completed 02/24/2016 Bone Mineral Density Test Completed 02/04/2016 Colonoscopy Completed Consult requested 01/13/2016 Mammogram Completed 01/02/2016 Mammogram Completed 12/15/2015 45706 Arthroscopy Shoulder Debridement Completed Limited 12/15/2015 88844 Arthroscopy Shoulder Debridement Completed Limited 12/15/2015 81686 Arthroscopy,Shoulder Decompression Completed Of Subacromial Space W/Acromio 12/15/2015 70777 Arthroscopy,Shoulder Decompression Completed Of Subacromial Space W/Acromio 08/13/2015 31440 Inject/Drain Joint/Bursa Major W/O Completed US Encounters Type Date Location Provider CPT E/M Dx Office Visit 08/23/2018 [facility]surgery Services [place] 73421 M47.26 3:00p Of Sj Ngo MD M51.17 M48.07 Office Visit 06/14/2018 7:40a Sj Internal Medicine Frankie Damon M.D. 36498 I10 - [place] E11.9 J44.9 M51.16 Office Visit 05/17/2018 8:00a [facility] Internal Frankie Damon 97315 Z01.818 Miguel Angel Rees M.D. E11.9 Office Visit 03/29/2018 2:00p [facility] [place] 41984 M47.26 Of [facility] AT [place] MD Huber M51.16 M48.07 Office Visit 03/15/2018 7:40a [facility] Internal Frankie Damon, 07167 F17.210 Miguel Angel Rees M.D. E11.9 J44.9 Z23 Office Visit 03/10/2018 8:40a Cardiology Services Bernadette Gilbert 26149 R07.9 Of [facility] Lauar Hooks I49.1 I10 E66.9 F17.210 Office Visit 03/01/2018 2:00p [facility] [place] 32852 M47.26 Of [facility] MD Huber M51.16 M48.07 Office Visit 02/07/2018 7:40a [facility] Internal Medicine Frankie Damon M.D. 68654 I10 - [address] J44.9 F17.210 E78.1 Office Visit 02/03/2018 9:00a Cardiology Services Of Bernadette Hooks , 57137 I10 [facility] LAURA [place] Laura F17.210 E66.9 R00.2 G47.9 R07.9 R06.02 R94.31 Office Visit 11/23/2017 7:40a [facility] Internal Frankie Damon, 47802 I10 Miguel Angel Rees M.D. Office Visit 09/21/2017 7:40a [facility] Internal Frankie Damon, 30315 F17.210 Miguel Angel Rees M.D. M54.5 Office Visit 08/10/2017 7:40a [facility] Internal Frankie Damon, 76498 M51.16 Miguel Angel Rees M.D. F17.210 Office Visit 07/20/2017 7:40a [facility] Internal Frankie Damon 66815 M51.16 Miguel Angel Rees M.D. M46.1 Office Visit 06/08/2017 7:40a [facility] Internal Frankie Damon, 99955 M51.16 Medicine - Negrita Sanchez I10 F17.210 Office Visit 05/16/2017 10:40a [facility] [place] [address] M51.16 - [place] Office Visit 03/09/2017 11:20a [facility] Internal Medicine Frankie Damon 25120 R20.2 - Negrita Sanchez I10 M51.16 Z12.39 Office Visit 12/29/2016 2:40p [facility] Internal Medicine Frankie Damon M.D. 16408 I10 - [place] M51.16 Office Visit 08/25/2016 8:40a [facility] Internal Medicine - Jaime Lopez, MAYURI [address]759 I10 [place] M54.5 Office Visit 07/28/2016 3:15p Orthopedic Services Of Jaxson Finn 13061 M75.41 Lazara.Анна Sanchez Z47.89 Office Visit 06/10/2016 2:15p [facility]opedic [facility] Of Jaxson Finn 53476 M75.41 Lazara.Анна Sanchez M75.21 Office Visit 04/29/2016 8:00a [facility]opedic Services Of Jaxson Finn 35756 M75.41 C.Анна Sanchez M75.41 Z47.89 Z47.89 Office Visit 04/09/2016 8:40a [facility] Internal Medicine Frankie Damon 69847 I10 - Negrita Sanchez Office Visit 03/25/2016 9:15a Orthopedic Services Jaxson Finn M.D. 69302 M75.41 Of C.MRonit Z47.89 G54.0 Office Visit 03/11/2016 8:00a [facility] Internal Medicine Frankie Damon M.D. 49966 I10 - [address] E66.9 Office Visit 02/06/2016 8:00a [facility] Internal Medicine Frankie Damon M.D. 45345 I10 - [place] Z00.01 D48.5 Z12.11 Z23 L98.9 Office Visit 12/24/2015 8:20a [facility] Internal Medicine Frankie Damon M.D. 57032 I10 - [place] R63.5 Z12.39 Office Visit 10/15/2015 7:40a [facility] Internal Frankie Cabrales, 94815 M75.80 Miguel Angel Rees M.D. M75.41 Office Visit 10/01/2015 8:00a Orthopedic Services Of Kristy Flores, 74161 M75.80 C.MRonit ANP-C M75.41 M75.41 Office Visit 09/03/2015 8:00a [facility] Internal Frankie Damon, 01520 M75.41 Miguel Angel Rees M.D. K21.9 Office Visit 07/22/2015 8:15a Orthopedic Services Of Jaxson Finn, 54517 726.19 C.MRonit Sanchez 726.2 726.2 Office Visit 06/25/2015 2:00p Orthopedic Services Of Jaxson Finn M.D. 14317 840.4 C.M.ATerrence 726.10 726.10 Plan of Care Future Appointment(s):12/27/2018 9:00 am - Frankie Damon M.D. at [facility] Internal Medicine [facility]10/19/2018 10:00 am - Karuna Ngo MD at [facility]/11/2018 9:00 am - Karuna Ngo MD at [facility]/20/2018 - Frankie Damon M.D.Z01.818 Encounter for other preprocedural examinationComments:Patient asymptomatic from cardiac and pulmonary standpoint. She has suspeciou sleep apnea. Has not seen for evaluation Should hold metformin the day before surgery.CS with coverage with regular insulin starting 1h before procedure and then 6hourly.Albuterol nebulizer treatment starting 1h before procedure and then 6hourly.Will not take Lisinopril/HCTZ on the day of surgery. Should not take aspirinand or OTC medications like ibuprofen for 1 week prior to surgery.Follow up:3 months
--- OUTSIDE RECORDS SUMMARY | 2018-10-19 05:40 | XMS REPORT ---
:1965 External Reference #:[id number] Author Organization [employer] Address [address] [place] [address] [place] [address] Phone [phone] Care Team Providers Name Role Phone Frankie Damon MD Primary Care Physician Unavailable Payers Type Date Identification Numbers Payment Provider Subscriber Commercial Policy Number: [id number] BS Facets Amol Montoyaault PayID: [id number] [address] [address] [place] [address] Workers Effective: Policy Number: Selective Amol Hinson Compensation 2014 [id number] Insurance Jabari Onset: 2014 Group Name: [id number] [address] PayID: [place] [address] Problems Date Description Provider Status Onset: 06/25/2015 [...] Mother Heart Disease Mother Aneursym-brain Mother maternal grandfather-[place] Mother Maternal grandmother-bone cancer Social History Type Date Description Comments Marital Status Lives With Occupation Currently Working Occupation [employer] Cigarette Use Heavy tobacco smoker (more than [...] Tablets 5-325mg 120ta 1 tab every M51.16 [facility] aminophen /2017 bs 6h as needed [...] food- as , M.D. needed per patient Lisinopril-[place] 03/11 Active Tablets 20-12.5mg 30tab take one I10 [place] chlorothiazide s tablet by Pachikara mouth every [...] Hx Tablets 1mg 60tab take one 7. [place] s tablet by Nelson Jose Raul - mouth twice a , M.DTerrence Chantix Starting 02/07 Hx Tablets 0.5mg X 1tabs as directed F17. [place] 11 & 1 mg Pachikara - X 42 , M.D. 03/15 Amberen 09/21 Hx Frankie Nelson Onofre M.D. 02/02 Chantix 08/10 Hx Tablets 1mg 56tab Take One 7. [place] s Tablet By Nelson Jose Raul - Mouth Twice A , M.D. Hydrocodone-Acet 07/20 Hx Tablets 5-325mg 90tab 1 tab every M51.16 [place] amino s 8h as needed Nelson Onofre M.D. 06/14 Chantix Starting 06/08 Hx Tablets 0.5mg X 53tab Take By Mouth F17.210 [place] 11 & 1 mg s as Directed Pachikara - X 42 On Package , MTerrenceDTerrence 08/10 Hydrocodone-Acet 05/16 Hx Tablets 5-325mg 42tab take 1 M51.16 [place] aminophen s tablets every Pachikara - 8 [...] Cyclobenzaprine Hx Tablets 5mg 60tab take 1-2 [place] HCL /0000 s tablets by Pachika - [...] Code Status Date Vaccine Reaction Lot # [id number] Given 03/15/2018 Pneumonia Vaccine No immediate [id number] reaction...[id number] Given 02/06/2016 Tdap - [id number] Tetanus/Diptheria/Acellul ar [...] 50 5 Creatinine, Urine 43.3 mg/dL Specific [place] 1.009 pH 6.0 Oxidants Negative 6 Adulterants Comment Normal Codeine, Ur Not Detected ng/mL Cutoff: 25 7 Gcfclyj-8-kalm-glucuronide, Ur Not Detected ng/mL 8 Morphine, Ur Not Detected ng/mL Cutoff: 25 9 Ammsybqi-2-vtpb-glucuronide, U Not Detected ng/mL 10 6-monoacetylmorphine, Ur Not Detected ng/mL Cutoff: 25 11 Hydrocodone, Ur Present ng/mL Cutoff: 25 12 Norhydrocodone, Ur Present ng/mL Cutoff: 25 13 Dihydrocodeine, Ur Not Detected ng/mL Cutoff: 25 14 Hydromorphone, Ur Not Detected ng/mL Cutoff: 25 15 Okrrkdounpknf2dsuffsqhefeqspx Not Detected ng/mL 16 Oxycodone, Ur Not Detected ng/mL Cutoff: 25 17 Noroxycodone, Ur Not Detected ng/mL Cutoff: 25 18 Oxymorphone, Ur Not Detected ng/mL Cutoff: 25 19 Qcdglzbilqm-7-nzzc-glucuronide Not Detected ng/mL 20 Noroxymorphone, Ur Not Detected ng/mL Cutoff: 25 21 Fentanyl, Ur Not Detected ng/mL Cutoff: 2 22 Norfentanyl, Ur Not Detected ng/mL Cutoff: 2 23 Meperidine, Ur Not Detected ng/mL Cutoff: 25 24 Normeperidine, Ur Not Detected ng/mL Cutoff: 25 25 Naloxone, Ur Not Detected ng/mL Cutoff: 25 26 Xqvonklp-1-jdrr-glucuronide, U Not Detected ng/mL 27 Methadone, Ur [...] Ur Not Detected ng/mL Cutoff: 50 35 Rwbuuwszpv-mceo-uurbdqrfomt, U Not Detected ng/mL 36 Buprenorphine, Ur [...] 100 11 Metabolite of heroin 12 Lortab, [place], Vicodin; Also a very minor metabolite of [...] developed and its performance characteristics determined by [facility] in a manner consistent with CLIA requirements. This test has not been cleared or approved by the U.S. Food and Drug Administration. Test Performed by: [facility] [employer] - [facility] [address] [place] [address] 41 REFERENCE VALUE Cutoff: 100 42 REFERENCE VALUE Cutoff: 100 43 REFERENCE VALUE Cutoff: 100 44 REFERENCE VALUE Cutoff: 100 45 REFERENCE VALUE Cutoff: 100 46 ADDITIONAL INFORMATION This report is intended for use in clinical monitoring and management of patients. It is not intended for use in employment-related testing. This test was developed and its performance characteristics determined by [facility] in a manner consistent with CLIA requirements. This test has not been cleared or approved by the U.S. Food and Drug Administration. Test Performed by: [facility] [employer] - [address] [address] 47 ADDITIONAL INFORMATION This test was developed and its performance characteristics determined by [facility] in a manner consistent with CLIA requirements. This test has not been cleared or approved by the U.S. Food and Drug Administration. Test Performed by: [facility] - [address] [address] 48 Unable to calculate due to low [...] in tube. No "R" flags present 55 [facility] Severe Sepsis and Septic Shock Management [...] 145 to 180 Deficient Range <145 66 [id number] 67 SEE RESULT BELOW Name: AMOL BARBOZA : [address]: New Dupont MD Acct: [id number] Unit: [id number] AGE: 50 Location: [facility] Re09/07/16 SEX: F Status: DEP ER SPEC: [id number] KOMAL: 09/07/[address] [facility] [address]: New Dupont MD REQ: [id number] RECD: 09/08/16 STATUS: JUAN OLSON DR: Frankie Damon MD _ SOURCE: HEAD SPDESC: ORDERED: Culture Stain COMMENTS: [id number] Procedure Result Reported Site Wound/Misc Gram Stain Final 09/08/16- 1209 ML No Neutrophils Observed No Organisms Seen Wound/Misc Culture Final 09/10/16- 1227 ML Organism 1 NORMAL NHI Quantity 1+ * ML - MAIN LAB ([facility]) . END OF REPORT * ML=Testing performed at Main Lab DEPARTMENT OF PATHOLOGY, [address] [place] [address] Brody Browning M.D. Director [facility] # [id number] 68 ADDITIONAL INFORMATION This test was developed using an analyte specific reagent. Its performance characteristics were determined by [facility] in a manner consistent with CLIA requirements. This test has not been cleared or approved by the U.S. Food and Drug Administration. 69 ADDITIONAL INFORMATION This test was developed and its performance characteristics determined by [facility] in a manner consistent with CLIA requirements. This test has not been cleared or approved by the U.S. Food and Drug Administration. Test Performed by: [facility] - [address] [address] Retail Sales Professional: Jesus Calvo II, M.D., Ph.D. 70 [id number] 71 SEE RESULT BELOW Name: AMOL BARBOZA : [address]: Beto Babb MD Acct: [id number] Unit: [id number] AGE: 50 Location: [facility] Re06/28/16 SEX: F Status: REG REF SPEC: [id number] KOMAL: 06/28/16-[address] [facility] [address]: Beto Babb MD REQ: [id number] RECD: 06/28/16-1206 STATUS: MARCELLE OLSON DR: Frankie Damon MD _ ORDERED: LEVEL IV/2 COMMENTS: [id number] FINAL DIAGNOSIS 1. Colon, at 20 cm, [...] performed at Main Lab DEPARTMENT OF PATHOLOGY, [address] [place] [address] Brody Browning M.D. Director [facility] # [id number] 72 SEE RESULT BELOW Name: AMOL BARBOZA : [address]: Selina Samson MD Acct: [id number] Unit: [id number] AGE: 50 Location: [facility] Re02/17/16 SEX: F Status: REG REF SPEC: [id number] KOMAL: 02/17/16-[address]: Selina Samson MD REQ: [id number] RECD: 02/17/16 STATUS: COMP _ SOURCE: VAGINAL [...] or failure. * ML - MAIN LAB ([facility]) . END OF REPORT * ML=Testing performed at Main Lab DEPARTMENT OF PATHOLOGY, [address] [place] [address] Brody Browning M.D. Director [facility] # [id number] 73 SEE RESULT BELOW Name: AMOL BARBOZA : [address]: Selina Samson MD Acct: [id number] Unit: [id number] AGE: 50 Location: [facility] Re02/17/16 SEX: F Status: REG REF SPEC: [id number] KOMAL: 02/17/16-[address] [facility] [address]: Selina Samson MD REQ: [id number] RECD: 02/17/165 STATUS: SOUT _ ORDERED: IMAGE ANALYSIS, HPV/Thin [...] Signed (signature on file) OMID Leon(ASC) 02/17 9414 This Pap test was evaluated with the assistance of the OffermaticaPrep Test Imaging System. Due to cytologic findings at the cyber transport systems specialist microscope, comprehensive manual rescreening by a First Line Supervisor may be required. The Pap Smear is [...] performed at Main Lab DEPARTMENT OF PATHOLOGY, [address] [place] [address] Brody Browning M.D. Director [facility] # [id number] 74 The high-risk HPV types detected by [...] Date CPT Code Description Status Comment 05/17/2018 17246 EKG Tracing & Interpretation Completed 03/02/2018 16288 ECHO Transthoracic, Real-Time 2D Completed With Doppler And Color Flow 03/02/2018 10723 ECHO Transthoracic, Real-Time 2D Completed With Doppler And Color Flow 02/22/2018 91134 Treadmill Interp/Report Only Completed 02/22/2018 70113 Stress Test Supervsn W/Out I/R Completed 02/16/2018 05619 Plethysmography Determination Lung Completed Volumes & Per Airway Resist 02/16/2018 74747 Pulmonary Function><Bronchodil Completed 02/14/2018 47704 Holter Monitor Review (24 hr) Completed review & interp only 02/10/2018 58453 ECG Monitor/Recording W/Visual Completed Superimposition Scanning 02/03/2018 75573 EKG Tracing & Interpretation Completed 03/23/2017 Mammogram Completed 06/28/2016 Colonoscopy Completed 02/24/2016 Bone Mineral Density Test Completed 02/04/2016 Colonoscopy Completed Consult requested 01/13/2016 Mammogram Completed 01/02/2016 Mammogram Completed 12/15/2015 29331 Arthroscopy Shoulder Debridement Completed Limited 12/15/2015 70850 Arthroscopy Shoulder Debridement Completed Limited 12/15/2015 20423 Arthroscopy,Shoulder Decompression Completed Of Subacromial Space W/Acromio 12/15/2015 51352 Arthroscopy,Shoulder Decompression Completed Of Subacromial Space W/Acromio 08/13/2015 55905 Inject/Drain Joint/Bursa Major W/O Completed US Encounters Type Date Location Provider CPT E/M Dx Office Visit 08/23/2018 [facility] 76698 M47.26 3:00p Of Sj Ngo MD M51.17 M48.07 Office Visit 06/14/2018 7:40a [facility] Internal Medicine Frankie Damon M.D. 99431 I10 - [place] E11.9 J44.9 M51.16 Office Visit 05/17/2018 8:00a [facility] Internal Frankie Damon 14631 Z01.818 Miguel Angel Rees M.D. E11.9 Office Visit 03/29/2018 2:00p [facility] 74607 M47.26 Of [facility] AT Gold[place] MD Huber M51.16 M48.07 Office Visit 03/15/2018 7:40a [facility] Internal Frankie Damon, 94939 F17.210 Miguel Angel Rees M.D. E11.9 J44.9 Z23 Office Visit 03/10/2018 8:40a Cardiology Services Bernadette Gilbert 13801 R07.9 Of [facility] Laura Hooks I49.1 I10 E66.9 F17.210 Office Visit 03/01/2018 2:00p [facility] [place] 82402 M47.26 Of [facility] MD Huber M51.16 M48.07 Office Visit 02/07/2018 7:40a [facility] Internal Medicine Frankie Damon M.D. 63579 I10 - [address] J44.9 F17.210 E78.1 Office Visit 02/03/2018 9:00a Cardiology Services Of Bernadette Hooks , 80228 I10 [facility] LAURA Goldonna Laura F17.210 E66.9 R00.2 G47.9 R07.9 R06.02 R94.31 Office Visit 11/23/2017 7:40a [facility] Internal Frankie Damon, 14302 I10 Miguel Angel Rees M.D. Office Visit 09/21/2017 7:40a [facility] Internal Frankie Damon, 81705 F17.210 Miguel Angel Rees M.D. M54.5 Office Visit 08/10/2017 7:40a [facility] Internal Frankie Damon, 87057 M51.16 Miguel Angel Rees M.D. F17.210 Office Visit 07/20/2017 7:40a [facility] Internal Frankie Damon 65308 M51.16 Miguel Angel Rees M.D. M46.1 Office Visit 06/08/2017 7:40a [facility] Internal Frankie Damon, 39313 M51.16 Medicine - Negrita Sanchez I10 F17.210 Office Visit 05/16/2017 10:40a [facility] [place] [address] M51.16 - [place] Office Visit 03/09/2017 11:20a [facility] Internal Medicine Frankie Damon 93072 R20.2 - Negrita Sanchez I10 M51.16 Z12.39 Office Visit 12/29/2016 2:40p [facility] Internal Medicine Frankie Damon M.D. 15064 I10 - [place] M51.16 Office Visit 08/25/2016 8:40a [facility] Internal Medicine - Jaime Lopez, MAYURI 48633 I10 [place] M54.5 Office Visit 07/28/2016 3:15p [facility] Of Jaxson Finn 95152 M75.41 Lazara.Анна Sanchez Z47.89 Office Visit 06/10/2016 2:15p [facility] Finn 41922 M75.41 Lazara.Анна Sanchez M75.21 Office Visit 04/29/2016 8:00a [facility] Finn 05296 M75.41 C.Анна Sanchez M75.41 Z47.89 Z47.89 Office Visit 04/09/2016 8:40a [facility] Internal Medicine Frankie Damon 49733 I10 - [place]gr[place] Sanchez Office Visit 03/25/2016 9:15a [facility] Jaxson Finn M.D. 54517 M75.41 Of C.MRonit Z47.89 G54.0 Office Visit 03/11/2016 8:00a [facility] Internal Medicine Frankie Damon M.D. 89918 I10 - [address] E66.9 Office Visit 02/06/2016 8:00a [facility] Internal Medicine Frankie Damon M.D. 94638 I10 - [place] Z00.01 D48.5 Z12.11 Z23 L98.9 Office Visit 12/24/2015 8:20a [facility] Internal Medicine Frankie Damon M.D. 71688 I10 - [place] R63.5 Z12.39 Office Visit 10/15/2015 7:40a [facility] Internal Frankie Damon, 14577 M75.80 Miguel Angel Rees M.D. M75.41 Office Visit 10/01/2015 8:00a [facility] Of Kristy Flores, 53396 M75.80 C.MRonit ANP-C M75.41 M75.41 Office Visit 09/03/2015 8:00a [facility] Internal Frankie Damon, 49441 M75.41 Miguel Angel Rees M.D. K21.9 Office Visit 07/22/2015 8:15a [facility] Of Jaxson Finn, 59137 726.19 C.MRonit Sanchez 726.2 726.2 Office Visit 06/25/2015 2:00p [facility] Of Jaxson Finn M.D. 35374 840.4 C.M.ATerrence 726.10 726.10 Plan of Care Future Appointment(s):12/27/2018 9:00 am - Frankie Damon M.D. at [facility] Internal Medicine [facility]10/19/2018 10:00 am - Karuna Ngo MD at [facility]10/11/2018 9:00 am - Karuna Ngo MD at [facility]09/20/2018 - Frankie Damon M.D.Z01.818 Encounter for other [...] for 1 week prior to surgery.Follow up:3 pzfpcyE88.39 Other sleep apneaReferral:[facility], Sleep Disord,Diag/Clinic
[2018-10-19] MEDS ORDERED: Scopolamine 1.5 mg* PATCH TRANSDERM ONE (06:00)
[2018-10-19] MEDS ORDERED: Levalbuterol 1.25MG/0.5ML NEB INH ONE (06:00)
[2018-10-19] MEDS ORDERED: Levalbuterol 1.25MG/0.5ML NEB ONE (06:14)
[2018-10-19] MEDS ORDERED: Buffered Lidocaine 0.9% SYRIN* 5 ML/SYR SYRINGE ONE (06:15)
[2018-10-19] MEDS ORDERED: ceFAZolin 2 GM PREMIX in ORs 2 GM/50 ML BAG IVPB ONE (06:15)
[2018-10-19] MEDS ORDERED: Scopolamine 1.5 mg* PATCH ONE (06:15)
[2018-10-19] MEDS ORDERED: Propofol* 10 MG/ML 20 ML BTL ONE ×2 (06:34→09:20)
[2018-10-19] MEDS ORDERED: Lidocaine 2% PF * 5 ML VIAL ONE (06:35)
[2018-10-19] MEDS ORDERED: Succinylcholine* 20 MG/ML 10 ML VIAL ONE (06:35)
[2018-10-19] MEDS ORDERED: Rocuronium* 10 MG/ML VIAL ONE (06:40)
[2018-10-19] MEDS ORDERED: Remifentanil* 2 MG VIAL ONE ×5 (06:42→11:28)
[2018-10-19] MEDS ORDERED: Thrombin 5,000 UNITS* 1 APPLIC KIT - topical use - TOPICAL ONE (06:50)
[2018-10-19] MEDS ORDERED: Bacitracin IV* 50,000 UNITS INJ ONE (06:50)
[2018-10-19] MEDS ORDERED: Lidocaine 1% MPF wEPI 200,000* 30 ML SDV ONE (06:50)
[2018-10-19] MEDS ORDERED: fentaNYL* 50 MCG/ML 2 ML VIAL (100 MCG VIAL) ONE (07:21)
[2018-10-19] MEDS ORDERED: Midazolam* 1 MG/ML 2 ML VIAL (2 MG) ONE (07:21)
[2018-10-19] MEDS ORDERED: VASOPRESSIN 20 UNITS/ML 1 ML VIAL ONE (08:00)
[2018-10-19] MEDS ORDERED: Propofol* 500 MG/50 ML BTL ONE ×2 (08:32→10:12)
[2018-10-19] MEDS ORDERED: KETAMINE HCL* 50 MG/ML 10 ML VIAL ONE (08:35)
[2018-10-19] MEDS ORDERED: Naloxone* 0.4 MG/ML 1 ML VIAL IV PRN (10:33)
[2018-10-19] MEDS ORDERED: DiMENhydriNATE IV* 50 MG/ML VIAL IV PUSH PRN (10:41)
[2018-10-19] MEDS ORDERED: Ondansetron INJ* 2 MG/ML VIAL ONE ×2 (10:42→15:12)
[2018-10-19] MEDS ORDERED: Ketorolac INJ* 30 MG/ML 1 ML VIAL ONE (10:42)
[2018-10-19] MEDS ORDERED: Metoclopramide IV* 5 MG/ML 2 ML VIAL ONE (10:42)
[2018-10-19] MEDS ORDERED: HYDROmorphone INJ1* 1 MG/ML SYRINGE ONE ×3 (12:12→13:16)
[2018-10-19] MEDS: HYDROmorphone INJ1* 1 MG/ML SYRINGE IV PRN ×2 (12:59→13:10)
[2018-10-19] MEDS ORDERED: HYDROcodone/ACETAMIN 5-325 MG* 1 TAB PO PRN (14:04)
[2018-10-19] MEDS ORDERED: Ondansetron INJ* 2 MG/ML VIAL IV PRN (14:04)
[2018-10-19] MEDS ORDERED: Acetaminophen TAB* 325 MG PO PRN (14:04)
[2018-10-19] MEDS ORDERED: HYDROcodone/ACETAMIN 5-325 MG* 1 TAB ONE (14:10)
[2018-10-19] MEDS ORDERED: Morphine VIAL* 4 MG/ML VIAL (1 ml vial) IV ONE (14:50)
[2018-10-19] MEDS ORDERED: oxyCODONE/Acetamin 5/325 MG* TAB PO PRN (14:50)
[2018-10-19] MEDS ORDERED: Morphine VIAL* 4 MG/ML VIAL (1 ml vial) ONE (15:08)
[2018-10-19] MEDS: Insulin LISPRO* 1 UNITS UNIT SUBCUT SCH ×2 (16:40→21:40)
[2018-10-19] MEDS ORDERED: Cyclobenzaprine TAB* 10 MG PO PRN (16:46)
[2018-10-19] MEDS ORDERED: Morphine INJ* 2 MG/ML 1 ML SYRINGE (TWO MG - NEW SYRINGE VERSION) IV ONE (16:53)
[2018-10-19] MEDS ORDERED: Cyclobenzaprine TAB* 10 MG ONE (16:58)
[2018-10-19] MEDS: oxyCODONE/Acetamin 5/325 MG* TAB PO PRN ×2 (18:03→23:03)
[2018-10-19] MEDS: Mometasone/Formoter 200/5 MDI INH SCH (19:36)
[2018-10-19] MEDS ORDERED: Metaxalone TAB* 800 MG PO SCH (21:00)
[2018-10-19] MEDS: Morphine VIAL* 4 MG/ML VIAL (1 ml vial) IV PRN (21:15)
[2018-10-19] MEDS: Gabapentin CAP(*) 300 MG PO SCH (21:18)
[2018-10-19] MEDS: Magnesium Hydroxide LIQ* 30 ML UDC PO PRN (21:45)
[2018-10-20] MEDS: Morphine VIAL* 4 MG/ML VIAL (1 ml vial) IV PRN ×2 (02:38→06:30)
[2018-10-20] MEDS: oxyCODONE/Acetamin 5/325 MG* TAB PO PRN ×5 (03:16→20:17)
--- NOTE | 2018-10-20 06:51 | OP ---
DATE OF OPERATION: 10/19/18 - ROOM #349 DATE OF : 65 SURGEON: Karuna Ngo MD PRACTICE BILLING ASSOCIATE: WILLIE Saini. The case was done with the assistance of surgical PA because of the complexity of the case. ANESTHESIA: General. PRE-OP DIAGNOSIS: L5-S1 degenerative disk disease. POST-OP DIAGNOSIS: L5-S1 degenerative disk disease. OPERATIVE PROCEDURE: The patient underwent right L5-S1 minimally invasive TLIF with PEEK interbody expandable cage, autologous bone graft from left iliac crest through a separate incision, DBX bilateral L5-S1 pedicle screws with intraoperative navigation and intraoperative electrophysiological monitoring. ESTIMATED BLOOD LOSS: 30 cc. COMPLICATIONS: None. SUMMARY: The patient is a very pleasant 53-year-old with complaints of back pain radiating to the right lower extremity. Patient had MRI findings consistent with degenerative disk disease, especially more profound at L5-S1 with right more than left neuroforaminal stenosis. After failing conservative treatment modalities, she was offered the option of surgical intervention in the form of right L5-S1 MIS TLIF. We agreed prior to the procedure to address the more symptomatic level and she understands that she may need to have additional procedures in the future. After all expectations, limitations, and possible complications of the procedure were explained in detail to the patient, her daughter, and her with complications including, but not limited to bleeding, infection, risk of injury to adjacent structures, coma, paralysis, , need for additional procedures, anesthesia risks, stroke, blindness, cancer, instability , hardware failure, adjacent level disease, pseudoarthrosis, spinal fluid leak, need for tracheostomy, gastrostomy, postoperative hematoma with loss of blood or bile control, anesthesia risk. The patient was agreeable to proceed with surgery and informed consent was obtained. She also understood that her condition may not improve, in fact may get worse after surgery and that she may need to have additional procedure in the future. She also understood that operative plan may be modified according to intraoperative findings and conditions. The case may be staged or abandoned, and thus she may require prolonged ICU stay and need for tracheostomy or gastrostomy. DESCRIPTION OF PROCEDURE: The patient was brought to the operating room, was placed under general anesthesia by the anesthesia team. She was carefully positioned prone on Leodan table and all bony prominences were meticulously padded. Her skin was prepped and draped in the standard fashion. After appropriate surgical pause and patient identification, a small incision over the left iliac crest was performed with #10 surgical blade. After infiltrating the skin with local anesthetic, the Corex needle was then placed over a wire, which was introduced with a Jamshidi needle. Iliac crest bone graft was obtained and was saved for the arthrodesis part of the procedure. Through the same incision, the navigation star was inserted and secured in place. Intraoperative OR imaging was obtained and the patient's data was transferred to the navigation platform. Under stereotactic navigation, the trajectory of each pedicle was marked on the skin and the skin was infiltrated with local anesthetic and a small paramedian incision was performed in both sides with use of #10 surgical blade. Under stereotactic navigation, the pedicles of L5 and S1 were cannulated with use of high-speed drill and awl-tip tap and 5 CUPS and some sugar ATS pedicle screws were inserted with 6.5 x 40 mm size for the L5 level and 6.5 x 40 mm size for the S1 level. A separate incision in the fascia was performed and over a series of navigated dilators, a 22 mm METRx retractor system was introduced and was docked over the right lamina of L5 and lamina facet junction. Under microscopic magnification, the paraspinal musculature was gently elevated and after exposing the L5 lamina as well as the medial part of the L5-S1 facet, a high-speed drill and Kerrison punches were used to perform a medial facetectomy and partial hemilaminectomy. The bone was removed en bloc and was saved to be used in arthrodesis part of the procedure. The ligamentum flavum was gently elevated and removed with Kerrison punches. The medial and superior aspect of the S1 pedicle was gently skeletonized with high- speed drill and Kerrison punches and the right S1 nerve root and the thecal sac was gently retracted medially and diskectomy and preparation of the disk space was performed. Of note, because of hypertrophy of the posterior edges of the endplates, the navigated high-speed drill was used in order to gain access into the disk space. After preparation of the disk space, the bone graft material was morcellized, locally harvested and iliac crest bone graft mixed with DBX was packed into the disc space and an ELEVATE 8 x 10 x 28 cage was inserted after being packed with bone graft. After confirmation of meticulous hemostasis and copious irrigation and meticulous inspection, the tubular retractor was gently removed confirming hemostasis and the dorsal fascia was approximated with interrupted 0 Vicryl sutures. Two rods, 35 mm in length, were then inserted through the same incision and secured in place with screw head caps. Intraoperative OR imaging confirmed excellent placement of all hardware and after final tightening of the screw head caps, the mary inserters, the screw extenders, and the navigation star were removed and the wound was closed by layers after copious irrigation, confirmation of meticulous hemostasis , and meticulous inspection. A 0 interrupted Vicryl suture was used to approximate the dorsal fascia while interrupted 2-0 Vicryl sutures were used to approximate the subcutaneous tissue. The skin was then covered with Dermabond. At the end of the procedure, all counts were reported to be correct. The patient remained hemodynamically stable throughout the case. Intraoperative electro-physiological monitoring remained stable throughout the case. I was present and scrubbed for the entirety of the case. The patient was then turned supine, was extubated, and was transferred to Recovery in excellent condition, moving all extremities very well. The case was done with the assistance of surgical team because of the complexity of the case. [id number]/CPS #: [id number] HELENA
[2018-10-20] MEDS: Insulin LISPRO* 1 UNITS UNIT SUBCUT SCH ×4 (08:02→20:54)
[2018-10-20] MEDS: Lisinopril TAB* 10 MG PO SCH (10:05)
[2018-10-20] MEDS: Gabapentin CAP(*) 300 MG PO SCH ×3 (10:05→20:17)
[2018-10-20] MEDS: Diazepam TAB(*) 5 MG PO PRN ×2 (10:06→18:20)
[2018-10-20] MEDS: Hydrochlorothiazide TAB* 25 MG PO SCH (10:06)
[2018-10-20] MEDS: oxyCODONE TAB* 5 MG TAB PO PRN ×4 (10:06→22:29)
[2018-10-20] MEDS: Mometasone/Formoter 200/5 MDI INH SCH ×2 (10:07→19:44)
[2018-10-20] MEDS: Magnesium Hydroxide LIQ* 30 ML UDC PO PRN (12:12)
--- NOTE | 2018-10-20 16:22 | PN ---
Progress Note - Progress Note Date of Service: 10/20/18 SOAP: Subjective: []No events On. Patient tolerated procedure well. Ambulates, Voids, Tolerates po well. Preop LE pain and numbness resolved. Still some postoperative back pain. Objective: []VSS, Afebrile Wounds s,c,d AAOx3, KATERIN, CN II-XII grossly intact Motor 5/5 all extremities Sensory grossly intact to light touch Assessment: []53 yo f POD#1 Rt L5-S1 MIS TLIF Plan: []Monitor VS, Neurochecks Encourage ambulation XR reveals good alignment of spine and hardware, mild rotation in lateral films. Repeat Lateral XR DC planning. Lucila Ngo MD
[2018-10-21] MEDS: oxyCODONE/Acetamin 5/325 MG* TAB PO PRN ×2 (01:33→07:07)
[2018-10-21] MEDS: Diazepam TAB(*) 5 MG PO PRN (04:54)
[2018-10-21] MEDS: oxyCODONE TAB* 5 MG TAB PO PRN (04:54)
[2018-10-21 08:06] VITALS: BP 106/65
[2018-10-21] MEDS: Insulin LISPRO* 1 UNITS UNIT SUBCUT SCH (08:09)
[2018-10-21] MEDS: Mometasone/Formoter 200/5 MDI INH SCH (08:10)
--- NOTE | 2018-10-21 09:27 | PN ---
Progress Note - Progress Note Date of Service: 10/21/18 SOAP: Subjective: [S/p right L5-S1 TLIF, POD #2. Patient feeling better this morning, pain better controlled. Complains of right buttock pain. Ambulating well, wearing LSO. Eating, drinking and voiding without difficulty. Denies headache, nausea.] Objective: [ Vital Signs: Temp Pulse Resp BP Pulse Ox 98.5 F 92 16 106/65 93 10/21/18 07:45 10/21/18 08:11 10/21/18 08:11 10/21/18 07:45 10/21/18 08:11 General: Alert and NAD. Neuro: Motor and sensory intact. Incision: Intact, dressing in place. No swelling. ] Assessment: [Satisfactory post-op ] Plan: [1. Discharge home today. 2. Discharge instructions discussed with the patient.]
[2018-10-21] MEDS: Gabapentin CAP(*) 300 MG PO SCH (09:28)
[2018-10-21] MEDS: Lisinopril TAB* 10 MG PO SCH (09:28)
[2018-10-21] MEDS: Hydrochlorothiazide TAB* 25 MG PO SCH (09:29)
--- NOTE | 2018-10-23 16:29 | DS ---
DISCHARGE SUMMARY: DATE OF ADMISSION: 10/19/18 DISCHARGE DATE: 10/21/18 ADMITTING DIAGNOSIS: Degenerative disc disease. DISCHARGE DIAGNOSIS: Degenerative disc disease. PROCEDURE: The patient underwent a right L5-S1 MIS TLIF. DISPOSITION: Home. CONDITION ON DISCHARGE: Good. SUMMARY: The patient is a very pleasant 53-year-old female with complaints of back pain radiating to the right lower extremity. The patient had MRI findings consistent with L5-S1 degenerative disc dis ease with neural foraminal stenosis. After failing conservative treatment modalities, she was offered the option of surgical intervention in the form of right L5-S1 MIS TLIF. The patient understood jamaal t her condition may not improve and in fact may get worse after surgery, and she may need to have add itional procedures done in the future. The patient underwent the above procedure. She was able to t olerate the procedure well and was transferred to the floor. She was able to improve clinically. He r preoperative lower extremity symptoms completely resolved. She had some incisional pain and on 12/08, she had good pain control with p.o. pain medication. She was able to ambulate and tolerate p. o. well and void and was felt to be ready to be discharged home. Full discharge instructions were gi warner to the patient. [id number]/[facility] #: [id number]
== END 2018-10-21 10:15 | disposition home or self-care (01) | DRG 304 ==
LOC: MERGE 07:30 → AA 10-19 05:34 → SSU 10-19 15:04
PROVIDERS: ADMIT Neurological Surgery; ATTEND Neurological Surgery
PROC: 0QB30ZZ Excision of Left Pelvic Bone, Open Approach (ICD-10-PCS; 2018-10-19)
PROC: 0SG30AJ Fusion of Lumbosacral Joint with Interbody Fusion Device, Posterior Approach, Anterior Column, Open Approach (ICD-10-PCS; principal; 2018-10-19 07:30)
DX: M51.17 Intervertebral disc disorders with radiculopathy, lumbosacral region (principal); M47.27 Other spondylosis with radiculopathy, lumbosacral region; M51.16 Intervertebral disc disorders with radiculopathy, lumbar region; I10 Essential (primary) hypertension; Z87.891 Personal history of nicotine dependence; Z79.1 Long term (current) use of non-steroidal anti-inflammatories (NSAID); Z79.899 Other long term (current) drug therapy
CPT/HCPCS: 72100; 76001; 94640; A9270-GY; C1713; C9359; J0330; J0690; J1170; J1885; J2001; J2250; J2270; J2405; J2704; J2765; J3010

== ENCOUNTER 2018-12-28 15:05 | Emergency (ER) | payer BC ==
--- OUTSIDE RECORDS SUMMARY | 2018-12-28 15:18 | XMS REPORT | Continuity of Care Document ---
:1965 External Reference #:[id number] Author Name Melissa Casarez Care Team Providers Name Role Phone Flor Marques MD Primary Care Physician Unavailable Payers Type Date Identification Numbers Payment Provider Subscriber Policy Number: [id number] [employer] Oriana Barboza PayID: [id number] [address] [address] [place] [address] Effective: 2014 Policy Number: Selective Insurance Oriana Barboza [id number] Onset: 2014 Group Name: [phone] [address] PayID: [id number] Henriquez [id number] Advance Directives Description No Information Available Problems [...] Mother Heart Disease Mother Aneursym-brain Mother maternal grandfather-DC Mother Maternal grandmother-bone cancer Siblings 4 Social History Type Date Description Comments Sex Unknown Marital Status Lives With Occupation Disabled Tobacco Use Start: Unknown End: Former Cigarette Smoker Unknown Smoking Status Reviewed: 12/26/18 Former Cigarette Smoker ETOH Use 10/09/2018 Rarely [...] Strength Qnty SIG Indications Ordering Provider Hydrocodone-Acet 12/26 Active Tablets 5-325mg 120ta 1-2 by mouth Z48.89 [facility] /2018 bs every 6 h as MD Jerald needed Gabapentin 05/17 Active Capsules 300mg 90cap 2 cap in the Vassil s morning 2 Dimopoulos caps in MD afternoon and 2 cap at night Metformin HCL 03/15 Active Tablets 500mg 60tab 1 by mouth E11.9 s twice a day Laura Damon Ventolin HFA 02/07 Active Aerosol 108(90Bas 8gm 2 puffs by J44.9 e) mouth four Pachikara, mcg/Act times a day MShira as needed Ibuprofen 07/20 Active Tablets 600mg 45tab three times M51.16 Frankie /2016 s a day with Nelson, food- as M.D. needed per patient Lisinopril-[place] 03/11 Active Tablets 20-12.5mg 30tab take one I10 Frankie chlorothiazide /2015 s tablet by Pachálvaro, mouth every M.D. day in the morning Metaxalone Active Tablets 800mg takes 1 by Tanya Paredes, /0000 mouth at MD bedtime Black Cohosh Active Tablets 40mg 2 by mouth Unknown /0000 daily. Vitamin E Active Capsules 1000Iu 1 by mouth Unknown /0000 every day Flaxseed Oil Active Capsules 1000mg 1 by mouth Unknown /0000 every day Percocet 12/08 Hx Tablets 5-325mg 30tab 1 tab by Karuna s mouth every Dimopoulos - 4-6 hours as MD 12/26 needed pain. hold if not fully awake. [place] 11/22 Hx Tablets 5-325mg 30tab 1-2 by mouth Z48.89 Vassilaaron s every 6 h as Dimopojarvis - MD santiago 12/26 Cyclobenzaprine 11/22 Hx Tablets 10mg 30tab 1 by mouth Z48.89 Vassilios HCL s every 8 h as Dimopoulos - needed MD 12/26 Percocet 10/30 Hx Tablets 5-325mg 60tab 1-2 by mouth M51.17 Adeel s every 4-6 [place], - hours as M.D. 12/26 needed pain Valium 10/27 Hx Tablets 5mg 12tab Take one Karuna s tablet by Huber - mouth every MD 05 8 hours needed for muscle spasms. Hydrocodone-Acet 06/14 Hx Tablets 5-325mg 36tab 1 tab by M51.16 Karuna aminophen s mouth every Dimopoulos - 4-6 hours as MD 11/21 needed Chantix 03/15 Hx Tablets 1mg 60tab take one F17.210 Frankie Continuing s tablet by Nelson Jose Raul - mouth twice M.D. 05/17 a day /2017 Chantix Starting 02/07 Hx Tablets 0.5mg X 1tabs as directed F17.210 [place] 11 & 1 mg Nelson, - X 42 M.D. 03/15 Dulera 02/07 Hx Aerosol 200-5mcg/ 8.800 2 puff twice J44.9 Act gm a day Nelson - M.D. 10/09 Amberen 09/21 Hx Nelson - M.D. 02/02 Chantix 08/10 Hx Tablets 1mg 56tab Take One F17.210 Jericho s Tablet By Jose Raul Damon - Mouth Twice M.D. 02/02 Hydrocodone-Acet 07/20 Hx Tablets 5-325mg 90tab 1 tab every M5.16 Jericho s 8h as needed Jemima Damon M.D. 06/14 Chantix Starting 06/08 Hx Tablets 0.5mg X 53tab Take By F17.210 [place] 11 & 1 mg s Mouth as Nelson, - X 42 Directed On M.D. 08/10 Hydrocodone-Acet 05/16 Hx Tablets 5-325mg 42tab take 1 1.16 [place]o s tablets Nelson - every 8 M.D. 07/20 hours for pain. Baclofen 05/16 Hx Tablets 10mg 45tab Take s One-Half MAYURI Lopez - Tablet By 09/21 Mouth Every 8 Hours as Needed For Muscle Spasm, May Increase To One Tablet Every 8 Hours as Needed Tramadol HCL 12/29 Hx Tablets 50mg 120ta take two M51.16 bs tablets by Nelson - mouth twice M.D. 07/20 a day needed maximum daily dose=4 Naproxen 08/25 Hx Tablets 500mg 30tab 1 tablet M54.5 Jaime s with food by MAYURI Lopez - mouth twice 03/09 a Tramadol HCL 08/25 Hx Tablets 50mg 45tab Take 1-2 M54.5 Jaime s Tablets By MAYURI Lopez - Mouth Every 12/29 8 Hours Needed For Pain; Maximum Daily Dose=4 Gabapentin 05/24 Hx Capsules 300mg 30cap Take One s Capsule By Aakash, - Mouth AT M.D. 03/09 Bed Neurontin 03/25 Hx Capsules 300mg 30cap 1 [...] Hx Capsules 200mg 30cap once daily M75.41 Frankie tabitha Damon - M.D. 12/03 Meloxicam 05/21 Hx Tablets 15mg 30tab Take One M75.80 Kolton s Tablet By Lenny Rossi, - Mouth Every M.D.,[facility] 10/15 Day Food Lisinopril Hx Tablets 10mg 30tab once a day Frankie / tabitha Damon - M.DTerrence 03/11 Cyclobenzaprine Hx Tablets 5mg 60tab take 1-2 Frankie / s tablets by Nelson, - mouth twice M.D. 05/16 a day needed, no driving after taking cyclobenzapr ine Vitamin B-12 Hx Tablets 50mcg Unknown /0000 - 02/02 Multi For Her Hx Tablets Unknown 50+ /0000 - 02/02 Tizanidine HCL Hx Capsules 4mg one by mouth Unknown /0000 every 8 - hours as 02/02 Gabapentin Hx Capsules 300mg 1 by mouth Tanya Paredes, /0000 at bedtime. MD - 05/17 Cyanocobalamin Hx Tablets 500mcg take one Unknown /0000 tablet by - mouth daily 02/02 Vitamin E Hx Capsules 200Unit 1 by mouth Unknown /0000 every day - 03/09 Medications Administered in Office Medication Date Status Form Strength Qnty SIG Indications Ordering Provider Elliot Administered Injection Kristy 80MG 015 JESSICA Flores Immunizations CPT Code Status Date Vaccine Reaction Lot # [id number] Given 03/15/2018 Pneumonia Vaccine No immediate [id number] reaction...[id number] Given 02/06/2016 Tdap - [id number] Tetanus/Diptheria/Acellul ar Pertussis Vital Signs Date Vital Result Comment 12/26/2018 8:58am Height 65.6 inches 5'5.60" Weight 190.00 lb Heart Rate 93 /min BP Systolic Sitting 130 mmHg BP Diastolic Sitting 78 mmHg Body Temperature 98.5 F Pain Level 7 lower back O2 % BldC Oximetry 98 % BMI (Body Mass Index) 31.0 kg/m2 11/22/2018 9:02am Height 65.5 inches 5'5.50" Weight 189.50 lb with shoes, back support on Heart Rate 72 /min radial, regular BP Systolic Sitting 130 mmHg rt arm BP Diastolic Sitting 80 mmHg rt arm BMI (Body Mass Index) 31.1 kg/m2 10/11/2018 3:09pm Height 65.5 inches 5'5.50" Weight 190.00 lb BP Systolic Sitting 128 mmHg BP Diastolic Sitting 80 mmHg Pain Level 9 BMI (Body Mass Index) 31.1 kg/m2 10/11/2018 9:01am Height 65.5 inches 5'5.50" Weight [...] Test Result H/L Range Note Laboratory test Clerk Supervisor In House Hemoglobin A1c 6.6 5-7 finding 9 Inr/Protime [facility] Inr 0.83 N 0.77-1.[address] [place] [address] [phone] Laboratory test [facility] Partial Thrombo 30.7 seconds N 26.0-36.3 finding [address] [place] [address] [phone] Type & Screen [facility] Patient Blood B Positive [address] [place] [address] [phone] Antibody Screen NEGATIVE Basic Metabolic Panel 10/11/2018 [facility] Sodium 138 mmol/L N [address] [place] [address] [phone] Potassium 4.8 mmol/L N 3.5-5.0 Chloride 101 mmol/L N 101-111 Co2 Carbon Dioxide 32 mmol/L N 22-32 Anion Gap 5 mmol/L N 2-11 Glucose 107 mg/dL High 70-100 Blood Urea Nitrogen 13 mg/dL N 6-24 Creatinine 0.86 mg/dL N 0.51-0.95 BUN/Creatinine Ratio 15.1 N 8-20 Calcium 10.3 mg/dL N 8.6-10.3 Egfr Non- 69.0 >60 Egfr 83.5 >60 1 Laboratory test 10/11/2018 [facility] TSH (Thyroid 1.15 mcIU/mL N 0.34-5.[address] Stim [place]orm) [place] [address] [phone] Urinalysis 10/11/2018 [facility] Urine Color Yellow Profile [address] [place] [address] [phone] Urine Appearance Clear Urine Specific [place] 1.018 N 1.010-1.030 Urine pH 5.0 N 5-9 Urine Urobilinogen Negative Negative Urine Ketones Negative Negative Urine Protein Negative Negative Urine Leukocytes Negative Negative Urine Blood 2+ Abnormal Negative Urine Nitrite Negative Negative Urine Bilirubin Negative Negative Urine Glucose Negative Negative Urine White Blood Cell Absent Absent Urine Red Blood Cell 2+(6-10/hpf) Abnormal Absent Urine Bacteria Absent Absent Urine Squamous Epithelial Cell Present Abnormal Absent CBC No Diff 10/11/2018 [facility] White Blood 10.7 10^3/uL N 3.5-10.[address] [place] [address] [phone] Red Blood Count 4.93 10^6/uL N 4.00-5.40 Hemoglobin 17.0 g/dL High 12.0-16.0 Hematocrit 48 % High 35-47 Mean Corpuscular Volume 98 fL High 80-97 Mean Corpuscular Hemoglobin 35 pg High 27-31 Mean Corpuscular HGB Conc 35 g/dL N 31-36 Red Cell Distribution Width 14 % N 10.5-15 Platelet Count 256 10^3/uL N 150-450 Mean Platelet Volume 8.3 fL N 7.4-10.4 Laboratory test 10/09/2018 [facility] In House Hemoglobin A1c 6.9 5-7 finding Barbiturate Confirm 06/14/2018 [facility] Urine Butalbital by 353 ng/mL [address] GC/[place] [address] [phone] Urine Amobarbital by GC/MS Negative ng/mL 3 Urine Pentobarbital by GC/MS Negative ng/mL 4 Urine Secobarbital by GC/MS Negative ng/mL 5 Urine Phenobarbital by GC/MS Negative ng/mL 6 Urine Barbiturates Interp Positive. 7 Drug Abuse 20 06/14/2018 [facility] Urine Amphetamine Negative ng/mL [address] [place] [address] [phone] Urine Barbiturates Presumptive Posi <SEE NOTE> Abnormal 9 ng/mL Urine Benzodiazepines Negative ng/mL 10 Urine Cocaine Negative ng/mL 11 Urine Phencyclidine Negative ng/mL Cutoff: 25 Urine Tetrahydrocannabinol Negative ng/mL Cutoff: 50 12 Creatinine, Urine 43.3 mg/dL Specific [place] 1.009 pH 6.0 Oxidants Negative 13 Adulterants Comment Normal Codeine, Ur Not Detected ng/mL Cutoff: 25 14 Inulpdu-6-xchl-glucuronide, Ur Not Detected ng/mL 15 Morphine, Ur Not Detected ng/mL Cutoff: 25 16 Dhuqdqrm-5-bkgv-glucuronide, U Not Detected ng/mL 17 6-monoacetylmorphine, Ur Not Detected ng/mL Cutoff: 25 18 Hydrocodone, Ur Present ng/mL Abnormal Cutoff: 25 19 Norhydrocodone, Ur Present ng/mL Abnormal Cutoff: 25 20 Dihydrocodeine, Ur Not Detected ng/mL Cutoff: 25 21 Hydromorphone, Ur Not Detected ng/mL Cutoff: 25 22 Pvuinenyrgkml0uwimflmqyjpawxb Not Detected ng/mL 23 Oxycodone, Ur Not Detected ng/mL Cutoff: 25 24 Noroxycodone, Ur Not Detected ng/mL Cutoff: 25 25 Oxymorphone, Ur Not Detected ng/mL Cutoff: 25 26 Zinhjwwdoty-8-ucem-glucuronide Not Detected ng/mL 27 Noroxymorphone, Ur Not Detected ng/mL Cutoff: 25 28 Fentanyl, Ur Not Detected ng/mL Cutoff: 2 29 Norfentanyl, Ur Not Detected ng/mL Cutoff: 2 30 Meperidine, Ur Not Detected ng/mL Cutoff: 25 31 Normeperidine, Ur Not Detected ng/mL Cutoff: 25 32 Naloxone, Ur Not Detected ng/mL Cutoff: 25 33 Tnmnnlfs-0-hqtz-glucuronide, U Not Detected ng/mL 34 Methadone, Ur Not Detected ng/mL Cutoff: 25 35 Eddp, Ur Not Detected ng/mL Cutoff: 25 36 Propoxyphene, Ur Not Detected ng/mL Cutoff: 25 37 Norpropoxyphene, Ur Not Detected ng/mL Cutoff: 25 38 Tramadol, Ur Not Detected ng/mL Cutoff: 25 39 O-desmethyltramadol, Ur Not Detected ng/mL Cutoff: 25 40 Tapentadol, Ur Not Detected ng/mL Cutoff: 25 41 N-desmethyltapentadol, Ur Not Detected ng/mL Cutoff: 50 42 Ivxnazdont-tuys-pzzzcaeovxo, U Not Detected ng/mL 43 Buprenorphine, Ur Not Detected ng/mL Cutoff: 5 44 Norbuprenorphine, Ur Not Detected ng/mL Cutoff: 5 45 Norbuprenorphine glucuronide Not Detected ng/mL Cutoff: 20 46 Opioid Interpretation See Comment 47 Urine Nicotine 05/17/2018 [facility] Nicotine < 5.0 ng/mL < 5.0 [address] [place] [address] [phone] Cotinine < 5.0 ng/mL <5.0 Nornicotine < 2.0 ng/mL <2.0 Anabasine < 2.0 ng/mL <2.0 48 Urine Microalbumin 05/16/2018 [facility] Ur Microalbumin < 15.0 Random [address] (mg/L) mg/[place] [address] [phone] Urine Creatinine 81.81 mg/dL Urine Microalbumin/Creatinine TNP ug/mg <31 49 Lipid Profile 05/16/2018 [facility] Triglycerides 452 mg/dL 50 (Trig/Chol/HDL) [address] [place] [address] [phone] Cholesterol 213 mg/dL 51 HDL Cholesterol 35.4 mg/dL 52 LDL Cholesterol (SEE NOTE) mg/dL 53 Laboratory test 05/16/2018 [facility] LDL Cholesterol 102 mg/dL [address] [place] [address] [phone] Laboratory test 03/15/2018 [facility] In House Hemoglobin A1c 6.9 5-7 finding Laboratory test 01/26/2018 [facility] Troponin-I (TnI) 0.00 ng/ mL <0.[address] [place] [address] [phone] CBC Auto Diff 01/26/2018 [facility] White Blood 11.3 High 3.5- [address] Count 10^3/uL 0.8 [place] [address] [phone] Red Blood Count 5.12 10^6/uL N 4.0-5.4 Hemoglobin 17.3 g/dL High 12.0-16.0 Hematocrit 50 % High 35-47 Mean Corpuscular Volume 97 fL N 80-97 Mean Corpuscular Hemoglobin 34 pg High 27-31 Mean Corpuscular HGB Conc 35 g/dL N 31-36 Red Cell Distribution Width 13 % N 10.5-15 Platelet Count 233 10^3/uL N 150-450 55 Mean Platelet Volume 8 um3 N 7.4-10.4 [...] Blood Cells % 0 Laboratory test 01/26/2018 [facility] Lactic Acid 1.8 mmol/L N 0.5-2.0 56 finding [address] [place] [address] [phone] B-Type Natriuretic Peptide BNP 24 pg/mL 57 Inr/Protime 01/26/2018 [facility] Inr 0.89 N 0.77-1.02 [address] [place] [address] [phone] Laboratory test 01/26/2018 [facility] Partial 31.7 seconds N 26.0-36.3 finding [address] [facility] [place] [place] [address] PTT [phone] Comp Metabolic 01/26/2018 [facility] Sodium 137 mmol/L N 133- 145 Panel [address] [place] [address] [phone] Potassium 3.8 mmol/L N 3.5-5.0 Chloride 100 [...] Egfr Non- 74.3 >60 Egfr 95.5 >60 58 Laboratory test 01/26/2018 [facility] Magnesium 2.2 mg/dL N 1.9-2.[address] [place] [address] [phone] Creatine Kinase(CK) 56 U/L N 10-223 CKMB 01/26/2018 [facility] CKMB ng/mL 1.2 ng/mL N 0.6-6.[address] [place] [address] [phone] Laboratory test 01/26/2018 [facility] Troponin-I 0.00 ng/mL < 0.04 finding 101 (TnI) [place] [address] [phone] TSH (Thyroid Stim Horm) 0.76 mcIU/mL N 0.34-5.60 Lipid Profile 07/18/2017 [facility] Triglycerides 331 mg/dL N 59 (Trig/Chol/HDL) [address] [place] [address] [phone] Cholesterol 201 mg/dL N 60 HDL Cholesterol 29.9 mg/dL N 61 LDL Cholesterol 105 mg/dL N 62 Laboratory test 07/18/2017 [facility] Cortisol 16.74 g/dL N [address] [place] [address] [phone] CBC Auto Diff 07/18/2017 [facility] White Blood 8.6 10^3/uL N 3.5-[address] Count .8 [place] [address] [phone] Red Blood Count 5.38 10^6/uL N 4.0-5.4 [...] Red Blood Cells % 0.1 N Laboratory test 07/18/2017 [facility] TSH (Thyroid 0.53 mcIU/mL N 0.34-5.60 [address] Stim Horm) [place] [address] [phone] Comp Metabolic 07/18/2017 [facility] Sodium 138 mmol/L N 133- [address] [place] [address] [phone] Potassium 3.9 mmol/L N 3.5-5.0 Chloride 101 [...] 71.5 N >60 Egfr 91.9 N >60 65 Vitamin B12 03/23/2017 [facility] Vitamin B12 > 1450 High 180- 914 66 And Folate [address] pg/[place] [address] [phone] Folic Acid (Folate) > 20.00 ng/mL N >3.99 Wound 09/07/2016 [facility] Wound/Misc SEE RESULT 67, 68 Culture/Sensi [address] [place] [address] Stain [phone] HSV/VZV Derm PCR 09/07/2016 [facility] hs/VZ Source RIGHT N [address] [place] [address] [phone] HSV 1 PCR Negative N Negative HSV 2 PCR Negative N Negative 69 Varicella Zoster Source RIGHT SCALP N Varicella Zoster Result Positive N Negative 70 Laboratory test 06/28/2016 [facility] Surgical SEE RESULT 71, [address] [place] [address] [phone] Laboratory test 02/17/2016 [facility] Cytology SEE RESULT [address] BELOW [place], [place] [address] [phone] HPV Rna Ww/Reflex Genotype Negative N Negative 74 Trichomonas Vaginalis Rna Negative N Negative 75 Laboratory test 02/17/2016 [facility] Gardnerella/Yeast: SEE RESULT [address] Vaginal Dna BELOW [place], [place] [address] [phone] Lipid Profile 01/02/2016 [facility] Triglycerides 390 mg/dL N 77 (Trig/Chol/HDL) [address] [place], [place] [address] [phone] Cholesterol 167 mg/dL N 78 HDL Cholesterol 27.8 mg/dL N 79 LDL Cholesterol 61 mg/dL N 80 Laboratory test 01/02/2016 [facility] Cortisol 8.53 ?g/dL N [address] [place], [place] [address] [phone] CBC Auto Diff 01/02/2016 [facility] White Blood 7.3 10^3/uL N 3.5-[address] Count .8 [place], [place] [address] [phone] Red Blood Count 5.02 10^6/uL N 4.0-5.4 [...] Cells % 0 N Laboratory test 01/02/2016 [facility] TSH (Thyroid 0.77 ?IU/mL N 0.34-5.[address] Stim [place]orm) [place] [address] [phone] Comp Metabolic 01/02/2016 [facility] Sodium 133 mmol/L N 133- [address] [place] [address] [phone] Potassium 4.0 mmol/L N 3.5-5.0 Chloride 100 [...] 75.9 N >60 Egfr 97.6 N >60 82 Comp Metabolic Panel 09/03/2015 [facility] Sodium 135 mmol/L N 133-[address] [place] [address] [phone] Potassium 4.3 mmol/L N 3.5-5.0 Chloride 100 [...] 66.5 N >60 Egfr 85.6 N >60 83 1 Because ethnic data is not always readily [...] 15-29 5 Kidney failure <15 (or dialysis) 2 REFERENCE VALUE Cutoff: 100 3 REFERENCE VALUE Cutoff: 100 4 REFERENCE VALUE Cutoff: 100 5 REFERENCE VALUE Cutoff: 100 6 REFERENCE VALUE Cutoff: 100 7 ADDITIONAL INFORMATION This report is intended for use in clinical monitoring and management of patients. It is not intended for use in employment-related testing. This test was developed and its performance characteristics determined by [facility] in a manner consistent with CLIA requirements. This test has not been cleared or approved by the U.S. Food and Drug Administration. Test Performed by: [facility] [address] [place] [address] 8 REFERENCE VALUE Cutoff: 500 9 Presumptive Positive Drug confirmation to follow. Presumptive Positive means that the screening method is positive, but the test needs to be run by a confirmatory method before being finalized. REFERENCE VALUE Cutoff: 200 10 REFERENCE VALUE Cutoff: 100 11 REFERENCE VALUE Cutoff: 150 12 ADDITIONAL INFORMATION This report is intended for use in clinical monitoring or management of patients. It is not intended for use in employment-related testing. 13 REFERENCE VALUE Cutoff: 200 mg/L 14 Tylenol 3 15 Metabolite of codeine REFERENCE VALUE Cutoff: 100 16 Trang Bennett, Contin; Also a minor metabolite (10%) of codeine and can be seen in low concentrations (<2,000 ng/mL) with poppy seed ingestion. 17 Metabolite of morphine REFERENCE VALUE Cutoff: 100 18 Metabolite of heroin 19 Lortab, [place], Vicodin; Also a very minor metabolite of codeine and impurity (<1%) of oxycodone. 20 Metabolite of hydrocodone 21 Metabolite of hydrocodone 22 Dilaudid, Exalgo; Also a metabolite of hydrocodone and a minor (<5%) metabolite of morphine. 23 Metabolite of hydromorphone REFERENCE VALUE Cutoff: 100 24 Endocet, Percocet, Oxycontin 25 Metabolite of oxycodone 26 Numorphan, Opana; Also a metabolite of oxycodone. 27 Metabolite of oxymorphone REFERENCE VALUE Cutoff: 100 28 Metabolite of oxymorphone 29 Actiq, Duragesic, [place]ent[place] 30 Metabolite of fentanyl 31 Demerol 32 Metabolite of meperidine 33 Narcan 34 Metabolite of naloxone REFERENCE VALUE Cutoff: 100 35 Dolophine 36 Metabolite of methadone 37 Darvon, Darvocet 38 Metabolite of propoxyphene 39 Tradol, Ultram, Ultracet 40 Metabolite of tramadol 41 Nucynta 42 Metabolite of tapentadol 43 Metabolite of tapentadol REFERENCE VALUE Cutoff: 100 44 Buprenex, Suboxone 45 Metabolite of buprenorphine 46 Metabolite of buprenorphine 47 Test detected the presence of hydrocodone and one of its metabolites (norhydrocodone). Suspect use of hydrocodone within the past three days. ADDITIONAL INFORMATION This test was developed and its performance characteristics determined by [facility] in a manner consistent with CLIA requirements. This test has not been cleared or approved by the U.S. Food and Drug Administration. Test Performed by: [facility] - [address] [address] 48 ADDITIONAL INFORMATION This test was developed and its performance characteristics determined by [facility] in a manner consistent with CLIA requirements. This test has not been cleared or approved by the U.S. Food and Drug Administration. Test Performed by: [facility] - [address] [address] 49 Unable to calculate due to low microalbumin 50 Desirable: <150 Borderline High: 150-199 High: 200-499 Very High: >500 51 Desirable: <200 Borderline High: 200-239 High: >239 52 Low: <40 Desirable: 40-60 High: >60 53 Unable to calculate LDL as triglyceride is > 400 54 Desirable: <100 Near Optimal: 100-129 Borderline High: 130-159 High: 160-189 Very High: >189 55 No clot in tube. No "R" flags present 56 [facility] Severe Sepsis and Septic Shock Management Bundle Measure requires all lactic acids initially measuring >2.0 mmol/L be repeated. 57 >100 to <200 pg/mL: likely compensated congestive heart failure (CHF) 200 to 400 pg/mL: likely moderate CHF >400 pg/mL: likely moderate to severe CHF 58 Because ethnic data is not always [...] 5 Kidney failure <15 (or dialysis) 59 Desirable <150 Borderline high 150-199 High 200-499 Very High >500 60 Desirable <200 Borderline high 200-239 High >239 61 Low <40 Desirable: 40-60 High: >60 62 Desirable: <100 mg/dL Near Optimal: 100-129 mg/dL Borderline High: 130-159 mg/dL High: 160-189 mg/dL Very High: >189 mg/dL 63 AM 8.7-22.4 PM <10 64 FASTING 12 HOUR 65 Because ethnic data is not always readily [...] 15-29 5 Kidney failure <15 (or dialysis) 66 Normal Range 180 to 914 Indeterminate Range 145 to 180 Deficient Range <145 67 [id number] 68 SEE RESULT BELOW Name: ORIANA BARBOZA : [address]: New Dupont MD Acct: [id number] Unit: [id number] AGE: 50 Location: [facility] Re09/07/16 SEX: F Status: DEP ER SPEC: [id number] KOMAL: 09/07/[address] [facility] [address]: New Dupont MD REQ: [id number] RECD: 09/08/16 STATUS: JUAN OLSON DR: Frankie Damon MD _ SOURCE: [facility]: ORDERED: Culture Stain COMMENTS: [id number] Procedure Result Reported Site Wound/Misc Gram Stain Final 09/08/16- 1209 ML No Neutrophils Observed No Organisms Seen Wound/Misc Culture Final 09/10/16- 1227 ML Organism 1 NORMAL NHI Quantity 1+ * ML - [facility] ([facility]) . END OF REPORT * ML=Testing performed at Main Lab DEPARTMENT OF PATHOLOGY, [address] [place] [address] Brody Browning M.D. Director [facility] # [id number] 69 ADDITIONAL INFORMATION This test was developed using an analyte specific reagent. Its performance characteristics were determined by [facility] in a manner consistent with CLIA requirements. This test has not been cleared or approved by the U.S. Food and Drug Administration. 70 ADDITIONAL INFORMATION This test was developed and its performance characteristics determined by [facility] in a manner consistent with CLIA requirements. This test has not been cleared or approved by the U.S. Food and Drug Administration. Test Performed by: [facility] - [address] [address] Occupational Therapy Asst: Jesus Calvo II, M.D., Ph.D. 71 [id number] 72 SEE RESULT BELOW Name: ORIANA BARBOZA : [address]: Beto Babb MD Acct: [id number] Unit: [id number] AGE: 50 Location: [facility] Re06/28/16 SEX: F Status: REG REF SPEC: [id number] KOMAL: 06/28/[address] [facility] [address]: Beto Babb MD REQ: [id number] RECD: 06/28/166 STATUS: MARCELLE OLSON DR: Frankie Damon MD _ ORDERED: LEVEL IV/2 COMMENTS: [id number] FINAL DIAGNOSIS 1. Colon, at 20 cm, [...] performed at Main Lab DEPARTMENT OF PATHOLOGY, [address] [place] [address] Brody Browning M.D. Director [facility] # [id number] 73 SEE RESULT BELOW Name: ORIANA BARBOZA : [address]: Selina Samson MD Acct: [id number] Unit: [id number] AGE: 50 Location: [facility] Re02/17/16 SEX: F Status: REG REF SPEC: [id number] KOMAL: 02/17/16-[address]: Selina Samson MD REQ: [id number] RECD: 02/17/16 STATUS: SOUT _ ORDERED: IMAGE [...] Time Test Result Flag (u) Normal Range 02/17/161417 HPV RNA RFLX GE Negative Negative The high-risk HPV types detected by the assay include: 16, 18, 31, 33, 35, 39, 45, 51, 52, 56, 58, 59, 66, and 68. Signed (signature on file) OMID Leon(ASCP) 02/17 2578 This Pap test was evaluated with the assistance of the ThinPrep Test Imaging System. Due to cytologic findings at the engineer gas pumping station microscope, comprehensive manual rescreening by a Labor Specialist may be required. The Pap Smear is [...] END OF REPORT * ML=Testing performed at [facility] DEPARTMENT OF PATHOLOGY, [address] [place] [address] Brody Browning M.D. Director [facility] # [id number] 74 The high-risk HPV types detected by the assay include: 16, 18, 31, 33, 35, 39, 45, 51, 52, 56, 58, 59, 66, and 68. 75 HPV Source?: Thin Prep Trichomonas Source: Thin Prep 76 SEE RESULT BELOW Name: ORIANA BARBOZA : [address]: Selina Samson MD Acct: [id number] Unit: [id number] AGE: 50 Location: [facility] Re02/17/16 SEX: F Status: REG REF SPEC: [id number] KOMAL: 02/17/16-[address] [facility] [address]: Selina Samson MD REQ: [id number] RECD: 02/17/16 STATUS: COMP _ SOURCE: VAGINAL [...] or failure. * ML - MAIN LAB ([facility]) . END OF REPORT * ML=Testing performed at Main Lab DEPARTMENT OF PATHOLOGY, [address] [place] [address] Broyd Browning M.D. Director [facility] # [id number] 77 Desirable <150 Borderline high 150-199 High 200-499 Very High >500 78 Desirable <200 Borderline high 200-239 High >239 79 Low <40 Desirable: 40-60 High: >60 80 Desirable: <100 mg/dL Near Optimal: 100-129 mg/dL Borderline High: 130-159 mg/dL High: 160-189 mg/dL Very High: >189 mg/dL 81 AM 8.7-22.4 PM <10 82 Because ethnic data is not always [...] 15-29 5 Kidney failure <15 (or dialysis) 83 Because ethnic data is not always readily [...] (or dialysis) Procedures Date Code Description Status 10/19/2018 21630 Stereotactic Computer-Assisted, Spinal Completed 10/19/2018 00950 Insertion Interbody Biomechanical Device; Each Completed Interspace 10/19/2018 83964 Insertion Interbody Biomechanical Device; Each Completed Interspace 10/19/2018 80863 Non-Segmental Instrumentation Posterior 1 Interspace Completed 10/19/201833079 Non-Segmental Instrumentation Posterior 1 Interspace Completed 10/19/2018 06220 Arthrodesis,Combined Posterior Or Posterolateral Tech Completed 10/19/201841979 Arthrodesis,Combined Posterior Or Posterolateral Tech Completed 10/19/201803446 Autograft For Spine Surgery, Morselized Completed 10/19/2018 Allograft For Spine Surgery, Morselized Completed 10/09/2018 94572 EKG Tracing & Interpretation Completed 09/30/2018 30218 Sleep Study Unattended,HRT Rate,Oxygen Sat,Resp Completed Effort/Airflow 09/20/2018 97805 EKG Tracing & Interpretation Completed 05/17/2018 46630 EKG Tracing & Interpretation Completed 03/02/2018 82641 ECHO Transthoracic, Real-Time 2D With Doppler And Completed Color Flow 03/02/2018 87285 ECHO Transthoracic, Real-Time 2D With Doppler And Completed Color Flow 02/22/2018 01533 Stress Test Supervsn W/Out I/R Completed 02/22/2018 38891 Treadmill Interp/Report Only Completed 02/16/2018 77235 Plethysmography Determination Lung Volumes & Per Completed Airway Resist 02/16/2018 18092 Pulmonary Function><Bronchodil Completed 02/14/2018 25828 Holter Monitor Review (24 hr)dr review & interp only Completed 02/10/2018 43084 ECG Monitor/Recording W/Visual Superimposition Completed Scanning 02/03/2018 10772 EKG Tracing & Interpretation Completed 03/23/2017 66730353 Mammogram Completed 06/28/2016 41557981 Colonoscopy Completed 02/24/2016 732444509 Bone Mineral Density Test Completed 02/04/2016 53509424 Colonoscopy Completed 01/13/2016 81681788 Mammogram Completed 01/02/2016 15362858 Mammogram Completed 12/15/2015 24848 Arthroscopy Shoulder Debridement Limited Completed 12/15/2015 35765 Arthroscopy Shoulder Debridement Limited Completed 12/15/2015 78124 Arthroscopy,Shoulder Decompression Of Subacromial Completed Space W/Acromio 12/15/2015 70204 Arthroscopy,Shoulder Decompression Of Subacromial Completed Space W/Acromio 08/13/2015 18763 Inject/Drain Joint/Bursa Major W/O US Completed Encounters Type Date Location Provider Dx Diagnosis Office Visit 10/09/2018 [facility] Michelle Galvez Z01.818 Encounter for other 2:00p Miguel Angel Rossi M.D.,FACP preprocedural Rd examination M51.16 Intervertebral disc disorders w radiculopathy, lumbar region E11.9 Type 2 diabetes mellitus without complications Office Visit 09/28/2018 12:00p Pulmonology And Sleep Tanisha Kelly, R06.83 Snoring Services Of Sj SALINAS J41.0 Simple chronic bronchitis E66.09 Other obesity due to excess calories Z68.31 Body mass index (BMI) 31.0-31.9, adult Office Visit 09/20/2018 [facility] Michelle David Z01.818 Encounter for 9:00a Miguel Angel Damon M.D. other [place] preprocedural examination M51.17 Intvrt disc disorders w radiculopathy, lumbosacral region I10 Essential (primary) hypertension E11.9 Type 2 diabetes mellitus without complications R06.83 Snoring Office 08/23/2018 Neurosurgery Vassilios M47.26 Other spondylosis Visit 3:00p Services Of Sj Ngo MD with radiculopathy, lumbar region M51.17 Intvrt disc disorders w radiculopathy, lumbosacral region M48.07 Spinal stenosis, lumbosacral region Office Visit 06/14/2018 7:40a Thai Naqvi0 Essential Medicine Jemima Sanchez (primary) [place] hypertension E11.9 Type 2 diabetes mellitus without complications J44.9 Chronic obstructive pulmonary disease, unspecified M51.16 Intervertebral disc disorders w radiculopathy, lumbar region Office Visit 05/17/2018 [facility] Internal Frankie Z01.818 Encounter for 8:00a Miguel Angel Damon M.D. other [place] preprocedural examination E11.9 Type 2 diabetes mellitus without complications Office 03/29/2018 Neurosurgery [place]assili[place] M47.26 Other spondylosis Visit 2:00p Services Of Sj Ngo MD with radiculopathy, AT [place] lumbar region M51.16 Intervertebral disc disorders w radiculopathy, lumbar region M48.07 Spinal stenosis, lumbosacral region Office Visit 03/15/2018 [facility] [place] F17.210 Nicotine 7:40a Miguel Angel Damon M.D. dependence, [place] cigarettes, uncomplicated E11.9 Type 2 diabetes mellitus without complications J44.9 Chronic obstructive pulmonary disease, unspecified Z23 Encounter for immunization Office Visit 03/10/2018 8:40a Cardiology Qutaybeh S. R07.9 Chest pain, Services Of Sj Hooks M.D. unspecified AT [place] I49.1 Atrial premature depolarization I10 Essential (primary) hypertension E66.9 Obesity, unspecified F17.210 Nicotine dependence, cigarettes, uncomplicated Office 03/01/2018 Neurosurgery [place]ili[place] M47.26 Other spondylosis Visit 2:00p Services Of Sj Ngo MD with radiculopathy, AT [place] lumbar region M51.16 Intervertebral disc disorders w radiculopathy, lumbar region M48.07 Spinal stenosis, lumbosacral region Office Visit 02/07/2018 7:40a [facility] Michelle Damon, I10 Essential (primary) Medicine Jemima Sanchez hypertension [address] J44.9 Chronic obstructive pulmonary disease, unspecified F17.210 Nicotine dependence, cigarettes, uncomplicated E78.1 Pure hyperglyceridemia Office Visit 02/03/2018 9:00a Cardiology Qutaybeh S. I10 Essential Services Of Sj Hooks M.D. (primary) AT [place] hypertension F17.210 Nicotine dependence, cigarettes, uncomplicated E66.9 Obesity, unspecified R00.2 Palpitations G47.9 Sleep disorder, unspecified R07.9 Chest pain, unspecified R06.02 Shortness of breath R94.31 Abnormal electrocardiogram [ECG] [EKG] Office Visit 11/23/2017 [facility] [place] I10 Essential 7:40a Miguel Angel Damon M.D. (primary) [place] hypertension Office Visit 09/21/2017 [facility] [place] F17.210 Nicotine 7:40a Miguel Angel Damon M.D. dependence, [place] cigarettes, uncomplicated M54.5 Low back pain Office Visit 08/10/2017 [facility] [place] M51.16 Intervertebral disc 7:40a Miguel Angel Damon M.D. disorders w [place] radiculopathy, lumbar region F17.210 Nicotine dependence, cigarettes, uncomplicated Office Visit 07/20/2017 [facility] [place] M51.16 Intervertebral disc 7:40a Miguel Angel Damon M.D. disorders w [place] radiculopathy, lumbar region M46.1 Sacroiliitis, not elsewhere classified Office Visit 06/08/2017 [facility] [place] M51.16 Intervertebral disc 7:40a Miguel Angel Damon M.D. disorders w [place] radiculopathy, lumbar region I10 Essential (primary) hypertension F17.210 Nicotine dependence, cigarettes, uncomplicated Office Visit 05/16/2017 10:40a [facility] Internal Jaime Lopez, M51.16 Intervertebral disc Medicine - [employer] disorders w [place] radiculopathy, lumbar region Office Visit 03/09/2017 11:20a [facility] [place] R20.2 Paresthesia of skin Negrita Ibrahim M.D. I10 Essential (primary) hypertension M51.16 Intervertebral disc disorders w radiculopathy, lumbar region Z12.39 Encounter for oth screening for malignant neoplasm of breast Office Visit 12/29/2016 2:40p [facility] Internal [place] Damon I10 Essential Medicine Jemima Sanchez (primary) [place] hypertension M51.16 Intervertebral disc disorders w radiculopathy, lumbar region Office Visit 08/25/2016 8:40a [facility] Internal Jaimejulee Lopez, I10 Essential ( primary) Medicine - [address] [employer] hypertension [place] M54.5 Low back pain Office Visit 07/28/2016 3:15p Orthopedic Jaxson Mcmahon75.41 Impingement Services Of Laura Finn syndrome of right C.M.A. shoulder Z47.89 Encounter for other orthopedic aftercare Office Visit 06/10/2016 2:15p Orthopedic Jaxson Mcmahon75.41 Impingement Services Of Laura Finn syndrome of right C.M.A. shoulder M75.21 Bicipital tendinitis, right shoulder Office Visit 04/29/2016 8:00a Orthopedic Jaxson Vora.41 Impingement Services Of Laura Finn syndrome of right C.M.A. shoulder M75.41 Impingement syndrome of right shoulder Z47.89 Encounter for other orthopedic aftercare Z47.89 Encounter for other orthopedic aftercare Office Visit 04/09/2016 [facility] [place] I10 Essential 8:40a Miguel Angel Damon M.D. (primary) [place] hypertension Office Visit 03/25/2016 Orthopedic Diony Dunn.Loi Impingement 9:15a Services Jalen Sanchez syndrome of right C.M.A. shoulder Z47.89 Encounter for other orthopedic aftercare G54.0 Brachial plexus disorders Office Visit 03/11/2016 8:00a [facility] [place] Damon, Thai0 Essential (primary) Medicine - RangelDTerrence hypertension [address] E66.9 Obesity, unspecified Office Visit 02/06/2016 8:00a [facility] [place] Damon, I10 Essential Medicine - MTerrenceDTerrence (primary) [place] hypertension Z00.01 Encounter for general adult medical exam w abnormal findings D48.5 Neoplasm of uncertain behavior of skin Z12.11 Encounter for screening for malignant neoplasm of colon Z23 Encounter for immunization L98.9 Disorder of the skin and subcutaneous tissue, unspecified Office Visit 12/24/2015 8:20a [facility] [place] Damon, Thai0 Essential Medicine - MTerrenceDTerrence (primary) [place] hypertension R63.5 Abnormal weight gain Z12.39 Encounter for oth screening for malignant neoplasm of breast Office Visit 10/15/2015 7:40a [facility] Michelle David M75.80 Other shoulder Miguel Angel Damon M.D. lesions, [place] unspecified shoulder M75.41 Impingement syndrome of right shoulder Office Visit 10/01/2015 8:00a Orthopedic Kristy M75.80 Other shoulder Services Of JESSICA Flores lesions, C.M.A. unspecified shoulder M75.41 Impingement syndrome of right shoulder M75.41 Impingement syndrome of right shoulder Office Visit 09/03/2015 8:00a [facility] [place] M75.41 Impingement Medicine - Laura Damon syndrome of right [place] shoulder K21.9 Gastro-esophageal reflux disease without esophagitis Office Visit 07/22/2015 8:15a Orthopedic Jaxson Finn, 726.19 Shoulder Services Of M.DTerrence Disorders Other C.M.A. Spec 726.2 Shoulder Region Affections Other Not Elsewhere Class 726.2 Shoulder Region Affections Other Not Elsewhere Class Office Visit 06/25/2015 2:00p Orthopedic Jaxson Finn, 840.4 Sprains & Services Of M.DTerrence Strains Rotator C.M.A. Cuff (Capsule) 726.10 Bursae & Tendon Disorders Shoulder Region Unspec 726.10 Bursae & Tendon Disorders Shoulder Region Unspec Plan of Treatment Future Appointment(s):03/27/2019 9:40 am - Flor Marques MD at [facility] Internal Medicine - Dfuamsqxj25/27/2019 1:30 pm - Karuna Ngo MD at Neurosurgery Services Of [facility] AT Busnwfja81/05/2019 - Flor Marques MDE11.9 Type 2 diabetes mellitus without trhytxspkkrwbO48.00 Encounter for general adult medical examination without abnoComments:VACCINES:Flu shot every year in the fall. declinedTetanus: last one done in 2015Pneumonia vaccine: 2018Shingles vaccine: consider this especially if your insurance covers it. SCREENING: Colonoscopy: last one done in 06/2016 Mammogram: last one done 2017Pap smear: last one done 7569Z35.31 Encounter for screening mammogram for malignant neoplasm ofNew Xrays:Mammogram Screening Darío, Ordered: 12/26/18M54.16 Radiculopathy, lumbar regionFollow up:F/U 3 [id number] Essential (primary) hypertensionComments:Controlled. Continue same meds
--- OUTSIDE RECORDS SUMMARY | 2018-12-28 15:19 | XMS REPORT | Continuity of Care Document ---
:1965 External Reference #:[id number] Author Name GeethaGenie wilhelm Care Team Providers Name Role Phone Frankie Damon MD Primary Care Physician Unavailable Payers Type Date Identification Numbers Payment Provider Subscriber Policy Number: [id number] [employer]ets Amol Barboza PayID: [id number] [address] [address] [place] [address] Effective: 2014 Policy Number: Selective Insurance Amol Barboza [id number] Onset: 2014 Group Name: [id number] [address] PayID: RAMONA Henriquez [id number] Advance Directives Description No Information Available Problems [...] Mother maternal grandfather-[place] Mother Maternal grandmother-bone cancer Siblings 4 Social History Type Date Description Comments Sex Unknown Marital Status Lives With Occupation Disabled Tobacco Use Start: Unknown End: Former Cigarette Smoker Unknown Smoking Status Reviewed: 11/22/18 Former Cigarette Smoker ETOH Use 10/09/2018 Rarely [...] Form Strength Qnty SIG Indications Ordering Provider [place] 11/22 Active Tablets 5-325mg 30tab 1-2 by mouth Z48.89 Vassilios /2018 s every 6 h as Dimopoulos needed , Cyclobenzaprine 11/22 Active Tablets 10mg 30tab 1 by mouth Z48.89 Vassilios HCL /2018 s every 8 h as Dimopoulos needed , Percocet 10/30 Active Tablets 5-325mg 60tab 1-2 by mouth M51.17 Adeel s every 4-6 [place], hours as M.D. needed pain Valium 10/27 Active Tablets 5mg 12tab Take one Vassilios s tablet by Dimmagdalene mouth every , MD 8 hours as needed for muscle spasms. Gabapentin 06/27 Active Capsules 300mg 90cap 2 cap in the Vassilios /2017 s morning 2 Dimopoulos caps in , afternoon and 2 cap at night Metformin HCL 03/15 Active Tablets 500mg 60tab 1 by mouth E11.9 s twice a day Laura Damon Ventolin HFA 02/07 Active Aerosol 108(90Bas 8gm 2 puffs by J44.9 e) mouth four Pachika, mcg/Act times a day M.D. as needed Ibuprofen 07/20 Active Tablets 600mg 45tab three times M51.16 Frankie s a day with Nelson food- as M.D. needed per patient Lisinopril-Raymond 03/11 Active Tablets 20-12.5mg 30tab take one I10 Johnston chlorothiazide s tablet by Nelson, mouth every M.D. day in the morning Metaxalone Active Tablets 800mg takes 1 by Tanya Paredes, /0000 mouth at MD bedtime Black Cohosh Active Tablets 40mg 2 by mouth Unknown /0000 daily. Vitamin E Active Capsules 1000Iu 1 by mouth Unknown /0000 every day Flaxseed Oil Active Capsules 1000mg 1 by mouth Unknown /0000 every day Hydrocodone-Acet 06/14 Hx Tablets 5-325mg 36tab 1 tab by 1.16 [facility] aminophen s mouth every Dimopoulos - 4-6 hours as MD 11/21 Chantix 03/15 Hx Tablets 1mg 60tab take one F17.210 Johnston s tablet by Jose Raul Damon - mouth twice M.D. 05/17 a day Chantix Starting 02/07 Hx Tablets 0.5mg X 1tabs as directed F17.210 Johnston 11 & 1 mg Jemima Damon X 42 M.D. 03/15 Dulera 02/07 Hx Aerosol 200-5mcg/ 8.800 2 puff twice J44.9 Act gm a day Jemima Damon M.DTerrence 10/09 Amberen 09/21 Hx Jemima Damon M.DTerrence 02/02 Chantix 08/10 Hx Tablets 1mg 56tab Take One F17.210 Frankie s Tablet By Jose Raul Damon - Mouth Twice M.D. 02/02 A Hydrocodone-Acet 07/20 Hx Tablets 5-325mg 90tab 1 tab every M51.16 Johnston s 8h as needed Nelson - M.D. 06/14 Chantix Starting 06/08 Hx Tablets 0.5mg X 53tab Take By F17.210 Johnston 11 & 1 mg s Mouth as Jemima Damon X 42 Directed On M.D. 08/10 Package Hydrocodone-Acet 05/16 Hx Tablets 5-325mg 42tab take 1 1.16 Johnston s tablets Nelson, - every 8 M.D. 07/20 hours for pain. Baclofen 05/16 Hx Tablets 10mg 45tab Take s One-Half MAYURI Lopez - Tablet By 09/21 Mouth 8 Hours as Needed For Muscle Spasm, May Increase To One Tablet Every 8 Hours as Needed Tramadol HCL 12/29 Hx Tablets 50mg 120ta take two 1.16 bs tablets by Nelson - mouth twice M.D. 07/20 a day needed maximum daily dose=4 Naproxen 08/25 Hx Tablets 500mg 30tab 1 tablet M54.5 Jaime s with food by MAYURI Lopez - mouth twice 03/09 a Tramadol HCL 08/25 Hx Tablets 50mg 45tab Take 1-2 M54.5 Jaime s Tablets By MAYURI Lopez - Mouth Every 12/29 8 Hours as Needed For Pain; Maximum Daily Dose=4 Gabapentin 05/24 Hx Capsules 300mg 30cap Take One s Capsule By Aakash - Mouth AT M.D. 03/09 Bedtime Neurontin 03/25 Hx Capsules 300mg 30cap 1 by mouth s every night Aakash, - at bedtime M.D. 05/24 Hydrocodone-Acet 01/28 Hx Tablets 5-325mg 60tab 1-2 by mouth M75.41 Jaxson s every 4-6 Aakash, - hours prn. M.D. 02/23 Hydrocodone-Acet 12/03 Hx Tablets 5-325mg 60tab 1-2 by mouth M75.41 Jaxson aminophen s every 4-6 Aakash, - hours prn. M.D. 01/13 Celecoxib 09/03 Hx Capsules 200mg 30cap once daily M75.41 Johnston s Nelson, - M.D. 12/03 Meloxicam 05/21 Hx Tablets 15mg 30tab Take One M75.80 Kolton s Tablet By Lenny Rossi, - Mouth Every M.D.,FACP 10/15 Day Food Lisinopril Hx Tablets 10mg 30tab once a day Johnston / s Nelson, - M.D. 03/11 Cyclobenzaprine Hx Tablets 5mg 60tab take 1-2 Frankie HCL / s tablets by Nelson, - mouth twice M.D. 05/16 a day needed, no driving after taking cyclobenzapr ine Vitamin B-12 00 Hx Tablets 50mcg Unknown /0000 - 02/02 Multi For Her Hx Tablets Unknown 50+ /0000 - 02/02 Tizanidine HCL 00 Hx Capsules 4mg one by mouth Unknown /0000 every 8 - hours as 02/02 Gabapentin 00 Hx Capsules 300mg 1 by mouth Tanya Paredes, /0000 at bedtime. - 05/17 Cyanocobalamin Hx Tablets 500mcg take one Unknown /0000 tablet by - mouth daily 02/02 Vitamin E 00 Hx Capsules 200Unit 1 by mouth Unknown /0000 every day - 03/09 Medications Administered in Office Medication Date Status Form Strength Qnty SIG Indications Ordering Provider Depomedrol Administered Injection Kristy 80MG 015 JESSICA Flores Immunizations CPT Code Status Date Vaccine Reaction Lot # [id number] Given 03/15/2018 Pneumonia Vaccine No immediate [id number] reaction...[id number] Given 02/06/2016 Tdap - [id number] Tetanus/Diptheria/Acellul ar Pertussis Vital Signs Date Vital Result Comment 11/22/2018 9:02am Height 65.5 inches 5'5.50" Weight [...] Date Facility Test Result H/L Range Note CBC No Diff 10/11/2018 [facility] White Blood 10.7 10^3/uL N 3.5-10.[address] [place] [address] [phone] Red Blood Count 4.93 10^6/uL N 4.00-5.40 Hemoglobin 17.0 g/dL High 12.0-16.0 Hematocrit 48 % High 35-47 Mean Corpuscular Volume 98 fL High 80-97 Mean Corpuscular Hemoglobin 35 pg High 27-31 Mean Corpuscular HGB Conc 35 g/dL N 31-36 Red Cell Distribution Width 14 % N 10.5-15 Platelet Count 256 10^3/uL N 150-450 Mean Platelet Volume 8.3 fL N 7.4-10.4 Urinalysis Profile 10/11/2018 [facility] Urine Color Yellow [address] [place] [address] [phone] Urine Appearance Clear Urine Specific [place] 1.018 N 1.010-1.030 Urine pH 5.0 N [...] Urine Squamous Epithelial Cell Present Abnormal Absent Inr/Protime 10/11/2018 [facility] Inr 0.83 N 0.77-1.[address] [place] [address] [phone] Laboratory test 10/11/2018 [facility] Partial 30.7 seconds N 26.0-36.3 finding [address] [facility] [place] [place] [address] PTT [phone] Type & Screen 10/11/2018 [facility] Patient B Positive [address] [place] [address] [place] [address] [phone] Antibody Screen NEGATIVE Basic Metabolic Panel 10/11/2018 [facility] Sodium 138 mmol/L N 135-[address] [place] [address] [phone] Potassium 4.8 mmol/L N 3.5-5.0 Chloride 101 mmol/L N 101-111 Co2 Carbon Dioxide 32 mmol/L N 22-32 Anion Gap 5 mmol/L N 2-11 Glucose 107 mg/dL High 70-100 Blood Urea Nitrogen 13 mg/dL N 6-24 Creatinine 0.86 mg/dL N 0.51-0.95 BUN/Creatinine Ratio 15.1 N 8-20 Calcium 10.3 mg/dL N 8.6-10.3 Egfr Non- 69.0 >60 Egfr 83.5 >60 1 Laboratory test 10/11/2018 [facility] TSH (Thyroid 1.15 mcIU/mL N 0.34-5.[address] [place] [address] [place] [address] [phone] Laboratory test 10/09/2018 [facility] In House Hemoglobin A1c 6.9 5-7 finding Drug Abuse 20 06/14/2018 [facility] Urine Negative [address] Amphetamine ng/[place] [address] [phone] Urine Barbiturates Presumptive Posi <SEE NOTE> Abnormal 3 ng/mL Urine Benzodiazepines Negative ng/mL 4 Urine Cocaine Negative ng/mL 5 Urine Phencyclidine Negative ng/mL Cutoff: 25 Urine Tetrahydrocannabinol Negative ng/mL Cutoff: 50 6 Creatinine, Urine 43.3 mg/dL Specific [place] 1.009 pH 6.0 Oxidants Negative 7 Adulterants Comment Normal Codeine, Ur Not Detected ng/mL Cutoff: 25 8 Ljstclo-2-ffux-glucuronide, Ur Not Detected ng/mL 9 Morphine, Ur Not Detected ng/mL Cutoff: 25 10 Xcnxdffk-5-bqqj-glucuronide, U Not Detected ng/mL 11 6-monoacetylmorphine, Ur Not Detected ng/mL Cutoff: 25 12 Hydrocodone, Ur Present ng/mL Abnormal Cutoff: 25 13 Norhydrocodone, Ur Present ng/mL Abnormal Cutoff: 25 14 Dihydrocodeine, Ur Not Detected ng/mL Cutoff: 25 15 Hydromorphone, Ur Not Detected ng/mL Cutoff: 25 16 Zixzpdoncnvog4mkazmzipzwcbcwl Not Detected ng/mL 17 Oxycodone, Ur Not Detected ng/mL Cutoff: 25 18 Noroxycodone, Ur Not Detected ng/mL Cutoff: 25 19 Oxymorphone, Ur Not Detected ng/mL Cutoff: 25 20 Fzfzvrqtfef-0-qhlg-glucuronide Not Detected ng/mL 21 Noroxymorphone, Ur Not Detected ng/mL Cutoff: 25 22 Fentanyl, Ur Not Detected ng/mL Cutoff: 2 23 Norfentanyl, Ur Not Detected ng/mL Cutoff: 2 24 Meperidine, Ur Not Detected ng/mL Cutoff: 25 25 Normeperidine, Ur Not Detected ng/mL Cutoff: 25 26 Naloxone, Ur Not Detected ng/mL Cutoff: 25 27 Zzzzqfqp-1-gdmf-glucuronide, U Not Detected ng/mL 28 Methadone, Ur Not Detected ng/mL Cutoff: 25 29 Eddp, Ur Not Detected ng/mL Cutoff: 25 30 Propoxyphene, Ur Not Detected ng/mL Cutoff: 25 31 Norpropoxyphene, Ur Not Detected ng/mL Cutoff: 25 32 Tramadol, Ur Not Detected ng/mL Cutoff: 25 33 O-desmethyltramadol, Ur Not Detected ng/mL Cutoff: 25 34 Tapentadol, Ur Not Detected ng/mL Cutoff: 25 35 N-desmethyltapentadol, Ur Not Detected ng/mL Cutoff: 50 36 Iuiawtfmmu-xngu-ervxgxzbznd, U Not Detected ng/mL 37 Buprenorphine, Ur Not Detected ng/mL Cutoff: 5 38 Norbuprenorphine, Ur Not Detected ng/mL Cutoff: 5 39 Norbuprenorphine glucuronide Not Detected ng/mL Cutoff: 20 40 Opioid Interpretation See Comment 41 Barbiturate Confirm 06/14/2018 [facility] Urine Butalbital 353 ng/mL [address] by GC/[place] [address] [phone] Urine Amobarbital by GC/MS Negative ng/mL 43 Urine Pentobarbital by GC/MS Negative ng/mL 44 Urine Secobarbital by GC/MS Negative ng/mL 45 Urine Phenobarbital by GC/MS Negative ng/mL 46 Urine Barbiturates Interp Positive. 47 Urine Nicotine 05/17/2018 [facility] Nicotine < 5.0 ng/mL < 5.[address] [place] [address] [phone] Cotinine < 5.0 ng/mL <5.0 Nornicotine < 2.0 ng/mL <2.0 Anabasine < 2.0 ng/mL <2.0 48 Urine Microalbumin 05/16/2018 [facility] Ur Microalbumin < 15.[address] (mg/L) mg/[place] [address] [phone] Urine Creatinine 81.81 mg/dL Urine Microalbumin/Creatinine TNP ug/mg <31 49 Lipid Profile 05/16/2018 [facility] Triglycerides 452 mg/dL 50 (Trig/Chol/HDL) [address] [place] [address] [phone] Cholesterol 213 mg/dL 51 HDL Cholesterol 35.4 mg/dL 52 LDL Cholesterol (SEE NOTE) mg/dL 53 Laboratory test 05/16/2018 [facility] LDL Cholesterol 102 mg/dL [address] [place] [address] [phone] Laboratory test 03/15/2018 [facility] In House Hemoglobin A1c 6.9 5-7 finding Laboratory test 01/26/2018 [facility] Troponin-I (TnI) 0.00 ng/ mL <0.[address] [place] [address] [phone] CBC Auto Diff 01/26/2018 [facility] White Blood 11.3 High 3.5- [address] Count 10^3/uL 0.8 [place] [address] [phone] Red Blood Count 5.12 10^6/uL N 4.0-5.4 [...] Blood Cells % 0 Laboratory test 01/26/2018 [facility] Lactic Acid 1.8 mmol/L N 0.5-2.0 [address] [place] [address] [phone] B-Type Natriuretic Peptide BNP 24 pg/mL 57 Inr/Protime 01/26/2018 [facility] Inr 0.89 N 0.77-1.[address] [place] [address] [phone] Laboratory test 01/26/2018 [facility] Partial 31.7 seconds N 26.0-36.[address] [place] [address] PTT [phone] Comp Metabolic 01/26/2018 [facility] Sodium 137 mmol/L N 133- [address] [place] [address] [phone] Potassium 3.8 mmol/L N 3.5-5.0 Chloride 100 [...] Egfr 95.5 >60 58 Laboratory test 01/26/2018 [facility] Magnesium 2.2 mg/dL N 1.9-2.7 finding 101 [place] [address] [phone] Creatine Kinase(CK) 56 U/L N 10-223 CKMB 01/26/2018 [facility] CKMB ng/mL 1.2 ng/mL N 0.6-6.[address] [place] [address] [phone] Laboratory test 01/26/2018 [facility] Troponin-I 0.00 ng/mL < 0.04 finding 101 (TnI) [place] [address] [phone] TSH (Thyroid Stim Horm) 0.76 mcIU/mL N 0.34-5.60 Laboratory test 07/18/2017 [facility] Cortisol 16.74 g/dL N [address] [place] [address] [phone] CBC Auto Diff 07/18/2017 [facility] White Blood 8.6 10^3/uL N 3.5-[address] Count .8 [place] [address] [phone] Red Blood Count 5.38 10^6/uL N 4.0-5.4 [...] Nucleated Red Blood Cells % 0.1 N Lipid Profile 07/18/2017 [facility] Triglycerides 331 mg/dL N 60 (Trig/Chol/HDL) [address] [place] [address] [phone] Cholesterol 201 mg/dL N 61 HDL Cholesterol 29.9 mg/dL N 62 LDL Cholesterol 105 mg/dL N 63 Laboratory test 07/18/2017 [facility] TSH (Thyroid 0.53 mcIU/mL N 0.34-5.60 [address] [place]) [place] [address] [phone] Comp Metabolic 07/18/2017 [facility] Sodium 138 mmol/L N 133- [address] [place] [address] [phone] Potassium 3.9 mmol/L N 3.5-5.0 Chloride 101 [...] 91.9 N >60 65 Vitamin B12 03/23/2017 [facility] Vitamin B12 > 1450 High 180- 914 66 And Folate [address] pg/[place] [address] [phone] Folic Acid (Folate) > 20.00 ng/mL N >3.99 HSV/VZV Derm PCR 09/07/2016 [facility] hs/VZ Source RIGHT SCALP N [address] [place], [place] [address] [phone] HSV 1 PCR Negative N Negative HSV 2 PCR Negative N Negative 68 Varicella Zoster Source RIGHT SCALP N Varicella Zoster Result Positive N Negative 69 Wound 09/07/2016 [facility] Wound/Misc SEE RESULT 70 Culture/Sensi [address] [place] [address] Stain [phone] Laboratory test 06/28/2016 [facility] Surgical SEE RESULT 71, [address] [place] [address] [phone] Laboratory test 02/17/2016 [facility] Cytology SEE RESULT [address] [place], [place] [address] [phone] HPV Rna Ww/Reflex Genotype Negative N Negative 74 Trichomonas Vaginalis Rna Negative N Negative 75 Laboratory test 02/17/2016 [facility] Gardnerella/Yeast: SEE RESULT [address] [place] [address] [phone] Lipid Profile 01/02/2016 [facility] Triglycerides 390 mg/dL N 77 (Trig/Chol/HDL) [address] [place] [address] [phone] Cholesterol 167 mg/dL N 78 HDL Cholesterol 27.8 mg/dL N 79 LDL Cholesterol 61 mg/dL N 80 Laboratory test 01/02/2016 [facility] Cortisol 8.53 ?g/dL N [address] [place] [address] [phone] CBC Auto Diff 01/02/2016 [facility] White Blood 7.3 10^3/uL N 3.5-[address] Count .8 [place] [address] [phone] Red Blood Count 5.02 10^6/uL N 4.0-5.4 [...] Cells % 0 N Laboratory test 01/02/2016 [facility] TSH (Thyroid 0.77 ?IU/mL N 0.34-5.[address] [place]) [place] [address] [phone] Comp Metabolic 01/02/2016 [facility] Sodium 133 mmol/L N 133- 145 Panel [address] [place] [address] [phone] Potassium 4.0 mmol/L N 3.5-5.0 Chloride 100 [...] N >60 82 Comp Metabolic Panel 09/03/2015 [facility] Sodium 135 mmol/L N 133-145 [address] [place] [address] [phone] Potassium 4.3 mmol/L N 3.5-5.0 Chloride 100 [...] <15 (or dialysis) 2 REFERENCE VALUE Cutoff: 500 3 Presumptive Positive Drug confirmation to follow. Presumptive Positive means that the screening method is positive, but the test needs to be run by a confirmatory method before being finalized. REFERENCE VALUE Cutoff: 200 4 REFERENCE VALUE Cutoff: 100 5 REFERENCE VALUE Cutoff: 150 6 ADDITIONAL INFORMATION This report is intended for use in clinical monitoring or management of patients. It is not intended for use in employment-related testing. 7 REFERENCE VALUE Cutoff: 200 mg/L 8 Tylenol 3 9 Metabolite of codeine REFERENCE VALUE Cutoff: 100 10 Trang Bennett, MS Contin; Also a minor metabolite (10%) of codeine and can be seen in low concentrations (<2,000 ng/mL) with poppy seed ingestion. 11 Metabolite of morphine REFERENCE VALUE Cutoff: 100 12 Metabolite of heroin 13 Lortab, [place], Vicodin; Also a very minor metabolite of codeine and impurity (<1%) of oxycodone. 14 Metabolite of hydrocodone 15 Metabolite of hydrocodone 16 Dilaudid, Exalgo; Also a metabolite of hydrocodone and a minor (<5%) metabolite of morphine. 17 Metabolite of hydromorphone REFERENCE VALUE Cutoff: 100 18 Endocet, Percocet, Oxycontin 19 Metabolite of oxycodone 20 Numorphan, Opana; Also a metabolite of oxycodone. 21 Metabolite of oxymorphone REFERENCE VALUE Cutoff: 100 22 Metabolite of oxymorphone 23 Actiq, Duragesic, Fentora 24 Metabolite of fentanyl 25 Demerol 26 Metabolite of meperidine 27 Narcan 28 Metabolite of naloxone REFERENCE VALUE Cutoff: 100 29 Dolophine 30 Metabolite of methadone 31 Darvon, Darvocet 32 Metabolite of propoxyphene 33 Tradol, Ultram, Ultracet 34 Metabolite of tramadol 35 Nucynta 36 Metabolite of tapentadol 37 Metabolite of tapentadol REFERENCE VALUE Cutoff: 100 38 Buprenex, Suboxone 39 Metabolite of buprenorphine 40 Metabolite of buprenorphine 41 Test detected the presence of hydrocodone and one of its metabolites (norhydrocodone). Suspect use of hydrocodone within the past three days. ADDITIONAL INFORMATION This test was developed and its performance characteristics determined by [facility] in a manner consistent with CLIA requirements. This test has not been cleared or approved by the U.S. Food and Drug Administration. Test Performed by: [facility] [address] [place] [address] 42 REFERENCE VALUE Cutoff: 100 43 REFERENCE VALUE Cutoff: 100 44 REFERENCE VALUE Cutoff: 100 45 REFERENCE VALUE Cutoff: 100 46 REFERENCE VALUE Cutoff: 100 47 ADDITIONAL INFORMATION This report is intended for use in clinical monitoring and management of patients. It is not intended for use in employment-related testing. This test was developed and its performance characteristics determined by [facility] in a manner consistent with CLIA requirements. This test has not been cleared or approved by the U.S. Food and Drug Administration. Test Performed by: [facility] - [address] [address] 48 ADDITIONAL INFORMATION This test was developed and its performance characteristics determined by [facility] in a manner consistent with CLIA requirements. This test has not been cleared or approved by the U.S. Food and Drug Administration. Test Performed by: [facility] - [address] [address] 49 Unable to calculate due to low [...] in tube. No "R" flags present 56 [facility] Severe Sepsis and Septic Shock Management [...] 5 Kidney failure <15 (or dialysis) 59 AM 8.7-22.4 PM <10 60 Desirable <150 Borderline high 150-199 High 200-499 Very High >500 61 Desirable <200 Borderline high 200-239 High >239 62 Low <40 Desirable: 40-60 High: >60 63 Desirable: <100 mg/dL Near Optimal: 100-129 mg/dL Borderline High: 130-159 mg/dL High: 160-189 mg/dL Very High: >189 mg/dL 64 FASTING 12 HOUR 65 Because ethnic [...] 145 to 180 Deficient Range <145 67 [id number] ADDITIONAL INFORMATION This test was developed using an analyte specific reagent. Its performance characteristics were determined by [facility] in a manner consistent with CLIA requirements. This test has not been cleared or approved by the U.S. Food and Drug Administration. 69 ADDITIONAL INFORMATION This test was developed and its performance characteristics determined by [facility] in a manner consistent with CLIA requirements. This test has not been cleared or approved by the U.S. Food and Drug Administration. Test Performed by: [facility] [place] [address] Checking Clerk: Jesus Calvo II, M.D., Ph.D. 70 SEE RESULT BELOW Name: AMOL BARBOZA : [address]: New Dupont MD Acct: [id number] Unit: [id number] AGE: 50 Location: [facility] Re09/07/16 SEX: F Status: DEP ER SPEC: [id number] KOMAL: 09/07/[address] [facility] [address]: New Dupont MD REQ: [id number] RECD: 09/08/16 STATUS: JUAN OLSON DR: Frankie Damon MD _ SOURCE: HEAD SPDESC: ORDERED: Culture Stain COMMENTS: [id number] Procedure Result Reported Site Wound/Misc Gram Stain Final 09/08/16- 1209 ML No Neutrophils Observed No Organisms Seen Wound/Misc Culture Final 09/10/16- 1227 ML Organism 1 NORMAL NHI Quantity 1+ * ML - MAIN LAB ([facility]) . END OF REPORT * ML=Testing performed at Main Lab DEPARTMENT OF PATHOLOGY, [address] [place] [address] Brody Browning M.D. Director [facility] # [id number] 71 [id number] 72 SEE RESULT BELOW Name: AMOL BARBOZA : [address]: Beto Babb MD Acct: [id number] Unit: [id number] AGE: 50 Location: [facility] Re06/28/16 SEX: F Status: REG REF SPEC: [id number] KOMAL: 06/28/[address] [facility] [address]: Beto Babb MD REQ: [id number] RECD: 06/28/16120 STATUS: MARCELLE OLSON DR: Frankie Damon MD _ ORDERED: LEVEL IV/2 COMMENTS: [id number] FINAL DIAGNOSIS 1. Colon, at 20 cm, [...] performed at Main Lab DEPARTMENT OF PATHOLOGY, [address] [place] [address] Brody Browning M.D. Director [facility] # [id number] 73 SEE RESULT BELOW Name: AMOL BARBOZA : [address]: Selina Samson MD Acct: [id number] Unit: [id number] AGE: 50 Location: [facility] Re02/17/16 SEX: F Status: REG REF SPEC: [id number] KOMAL: 02/17/16-[address] [facility] [address]: Selina Samson MD REQ: [id number] RECD: 02/17/160878 STATUS: SOUT _ ORDERED: IMAGE ANALYSIS, HPV/Thin [...] Signed (signature on file) OMID Leon(ASC) 02/17 9323 This Pap test was evaluated with the assistance of the [employer] Test Imaging System. Due to cytologic findings at the waste transportation technician microscope, comprehensive manual rescreening by a Recovery Operator Helper may be required. The Pap Smear is [...] performed at Main Lab DEPARTMENT OF PATHOLOGY, [address] [place] [address] Brody Browning M.D. Director [facility] # [id number] 74 The high-risk HPV types detected by the assay include: 16, 18, 31, 33, 35, 39, 45, 51, 52, 56, 58, 59, 66, and 68. 75 HPV Source?: Thin Prep Trichomonas Source: Thin Prep 76 SEE RESULT BELOW Name: AMOL BARBOZA : [address]: Selina Samson MD Acct: [id number] Unit: [id number] AGE: 50 Location: [facility] Re02/17/16 SEX: F Status: REG REF SPEC: [id number] KOMAL: 02/17/16-[address] [facility] [address]: Selina Samson MD REQ: [id number] RECD: 02/17/169 STATUS: COMP _ SOURCE: VAGINAL SPDESC: ORDERED: [...] failure. * ML - MAIN LAB ([facility]) . END OF REPORT * ML=Testing performed at Main Lab DEPARTMENT OF PATHOLOGY, [address] [place] [address] Brody Browning M.D. Director [facility] # [id number] 77 Desirable <150 Borderline high 150-199 High [...] dialysis) Procedures Date Code Description Status 10/19/2018 47502 Stereotactic Computer-Assisted, Spinal Completed 10/19/2018 27873 Insertion Interbody Biomechanical Device; Each Completed Interspace 10/19/2018 12632 Insertion Interbody Biomechanical Device; Each Completed Interspace 10/19/2018 18488 Non-Segmental Instrumentation Posterior 1 Interspace Completed 10/19/2018 Non-Segmental Instrumentation Posterior 1 Interspace Completed 10/19/201886777 Arthrodesis,Combined Posterior Or Posterolateral Tech Completed 10/19/201849277 Arthrodesis,Combined Posterior Or Posterolateral Tech Completed 10/19/2018 Autograft For Spine Surgery, Morselized Completed 10/19/2018 Allograft For Spine Surgery, Morselized Completed 10/09/2018 99529 EKG Tracing & Interpretation Completed 09/30/2018 17564 Sleep Study Unattended,HRT Rate,Oxygen Sat,Resp Completed Effort/Airflow 09/20/2018 41731 EKG Tracing & Interpretation Completed 05/17/2018 56642 EKG Tracing & Interpretation Completed 03/02/2018 72242 ECHO Transthoracic, Real-Time 2D With Doppler And Completed Color Flow 03/02/2018 97320 ECHO Transthoracic, Real-Time 2D With Doppler And Completed Color Flow 02/22/2018 57121 Stress Test Supervsn W/Out I/R Completed 02/22/2018 29698 Treadmill Interp/Report Only Completed 02/16/2018 31611 Plethysmography Determination Lung Volumes & Per Completed Airway Resist 02/16/2018 29523 Pulmonary Function><Bronchodil Completed 02/14/2018 23815 Holter Monitor Review (24 hr)dr review & interp only Completed 02/10/2018 28702 ECG Monitor/Recording W/Visual Superimposition Completed Scanning 02/03/2018 42506 EKG Tracing & Interpretation Completed 03/23/2017 [id number] Mammogram Completed 06/28/2016 [id number] Colonoscopy Completed 02/24/2016 [id number] Bone Mineral Density Test Completed 02/04/2016 [id number] Colonoscopy Completed 01/13/2016 [id number] Mammogram Completed 01/02/2016 [id number] Mammogram Completed 12/15/2015 62362 Arthroscopy Shoulder Debridement Limited Completed 12/15/2015 29765 Arthroscopy Shoulder Debridement Limited Completed 12/15/2015 53433 Arthroscopy,Shoulder Decompression Of Subacromial Completed Space W/Acromio 12/15/2015 73314 Arthroscopy,Shoulder Decompression Of Subacromial Completed Space W/Acromio 08/13/2015 87397 Inject/Drain Joint/Bursa Major W/O US Completed Encounters Type Date Location Provider Dx Diagnosis Office Visit 10/09/2018 [facility] Kolton Campos01.818 Encounter for other 2:00p Miguel Angel Rossi M.D.,FACP preprocedural Rd examination M51.16 Intervertebral disc disorders w radiculopathy, lumbar region E11.9 Type 2 diabetes mellitus without complications Office Visit 09/28/2018 12:00p Pulmonology And Sleep Tanisha Robin, R06.83 [facility] J41.0 Simple chronic bronchitis E66.09 Other obesity due to excess calories Z68.31 Body mass index (BMI) 31.0-31.9, adult Office Visit 09/20/2018 [facility] Michelle David Z01.818 Encounter for 9:00a Miguel Angel Damon M.D. other [place] preprocedural examination M51.17 Intvrt disc disorders w radiculopathy, lumbosacral region I10 Essential (primary) hypertension E11.9 Type 2 diabetes mellitus without complications R06.83 Snoring Office 08/23/2018 Neurosurgery Vass[place] M47.26 Other spondylosis Visit 3:00p Services Of Sj Ngo MD with radiculopathy, lumbar region M51.17 Intvrt disc disorders w radiculopathy, lumbosacral region M48.07 Spinal stenosis, lumbosacral region Office Visit 06/14/2018 7:40a [facility] Michelle Damon, I10 Essential Miguel Angel Onofre M.D. (primary) [place] hypertension E11.9 Type 2 diabetes mellitus without complications J44.9 Chronic obstructive pulmonary disease, unspecified M51.16 Intervertebral disc disorders w radiculopathy, lumbar region Office Visit 05/17/2018 [facility] Michelle David Z01.818 Encounter for 8:00a Miguel Angel Damon M.D. other [place] preprocedural examination E11.9 Type 2 diabetes mellitus without complications Office 03/29/2018 Neurosurgery [place] M47.26 Other spondylosis Visit 2:00p Services Of Sj Ngo MD with radiculopathy, AT [place] lumbar region M51.16 Intervertebral disc disorders w radiculopathy, lumbar region M48.07 Spinal stenosis, lumbosacral region Office Visit 03/15/2018 [facility] Michelle David F17.210 Nicotine 7:40a Miguel Angel Damon M.D. dependence, [place] cigarettes, uncomplicated E11.9 Type 2 diabetes mellitus without complications J44.9 Chronic obstructive pulmonary disease, unspecified Z23 Encounter for immunization Office Visit 03/10/2018 8:40a Cardiology Qutavictoria S. R07.9 Chest pain, Services Of Sj Hooks M.D. unspecified AT [place] I49.1 Atrial premature depolarization I10 Essential (primary) hypertension E66.9 Obesity, unspecified F17.210 Nicotine dependence, cigarettes, uncomplicated Office 03/01/2018 Neurosurgery [place] M47.26 Other spondylosis Visit 2:00p Services Of Sj Ngo MD with radiculopathy, AT [place] lumbar region M51.16 Intervertebral disc disorders w radiculopathy, lumbar region M48.07 Spinal stenosis, lumbosacral region Office Visit 02/07/2018 7:40a [facility] Internal Frankie Pachálvaro, I10 Essential (primary) Miguel Angel Onofre M.D. hypertension [address] J44.9 Chronic obstructive pulmonary disease, unspecified F17.210 Nicotine dependence, cigarettes, uncomplicated E78.1 Pure hyperglyceridemia Office Visit 02/03/2018 9:00a Cardiology Qutayblelo S. I10 Essential Services Of Sj Hooks M.D. (primary) AT [place] hypertension F17.210 Nicotine dependence, cigarettes, uncomplicated E66.9 Obesity, unspecified R00.2 Palpitations G47.9 Sleep disorder, unspecified R07.9 Chest pain, unspecified R06.02 Shortness of breath R94.31 Abnormal electrocardiogram [ECG] [EKG] Office Visit 11/23/2017 [facility] Internal Frankie I10 Essential 7:40a Miguel Angel Damon M.D. (primary) [place] hypertension Office Visit 09/21/2017 [facility] Internal Frankie F17.210 Nicotine 7:40a Miguel Angel Damon M.D. dependence, [place] cigarettes, uncomplicated M54.5 Low back pain Office Visit 08/10/2017 Sj David M51.16 Intervertebral disc 7:40a Miguel Angel Damon M.D. disorders w [place] radiculopathy, lumbar region F17.210 Nicotine dependence, cigarettes, uncomplicated Office Visit 07/20/2017 [facility] Internal Frankie M51.16 Intervertebral disc 7:40a Miguel Angel Damon M.D. disorders w [place] radiculopathy, lumbar region M46.1 Sacroiliitis, not elsewhere classified Office Visit 06/08/2017 [facility] Michelle David M51.16 Intervertebral disc 7:40a Miguel Angel Damon M.D. disorders w [place] radiculopathy, lumbar region I10 Essential (primary) hypertension F17.210 Nicotine dependence, cigarettes, uncomplicated Office Visit 05/16/2017 10:40a [facility] Internal Jaime Lopez M51.16 Intervertebral disc Medicine - RELATIONSHIP SPECIALIST disorders w [place] radiculopathy, lumbar region Office Visit 03/09/2017 11:20a [facility] Michelle David R20.2 Paresthesia of skin Negrita Ibrahim M.D. I10 Essential (primary) hypertension M51.16 Intervertebral disc disorders w radiculopathy, lumbar region Z12.39 Encounter for oth screening for malignant neoplasm of breast Office Visit 12/29/2016 2:40p [facility] Michelle Damon, I10 Essential Miguel Angel Onofre M.D. (primary) [place] hypertension M51.16 Intervertebral disc disorders w radiculopathy, lumbar region Office Visit 08/25/2016 8:40a [facility] Internal Jaime Lopez, I10 Essential ( primary) Medicine - RELATIONSHIP SPECIALIST hypertension [place] M54.5 Low back pain Office Visit 07/28/2016 3:15p Arslan Vora.41 Impingement Services Jalen Finn M.D. syndrome of right C.M.A. shoulder Z47.89 Encounter for other orthopedic aftercare Office Visit 06/10/2016 2:15p Arslan Vora.Loi Impingement Services Jalen Finn M.D. syndrome of right C.M.A. shoulder M75.21 Bicipital tendinitis, right shoulder Office Visit 04/29/2016 8:00a Arslan Vora.Loi Impingement Services Jalen Finn M.D. syndrome of right C.M.A. shoulder M75.41 Impingement syndrome of right shoulder Z47.89 Encounter for other orthopedic aftercare Z47.89 Encounter for other orthopedic aftercare Office Visit 04/09/2016 [facility] Michelle David I10 Essential 8:40a Miguel Angel Damon M.D. (primary) [place] hypertension Office Visit 03/25/2016 Arslan Puri Aakash, M75.41 Impingement 9:15a Services Of M.DTerrence syndrome of right C.M.A. shoulder Z47.89 Encounter for other orthopedic aftercare G54.0 Brachial plexus disorders Office Visit 03/11/2016 8:00a [facility] Internal Frankie Damon, I10 Essential (primary) Medicine - [place] hypertension [address] E66.9 Obesity, unspecified Office Visit 02/06/2016 8:00a [facility] Internal Frankie Damon, I10 Essential Medicine - M.DTerrence (primary) [place] hypertension Z00.01 Encounter for general adult medical exam w abnormal findings D48.5 Neoplasm of uncertain behavior of skin Z12.11 Encounter for screening for malignant neoplasm of colon Z23 Encounter for immunization L98.9 Disorder of the skin and subcutaneous tissue, unspecified Office Visit 12/24/2015 8:20a [facility] Michelle Damon, I10 Essential Medicine - M.Lenny (primary) [place] hypertension R63.5 Abnormal weight gain Z12.39 Encounter for oth screening for malignant neoplasm of breast Office Visit 10/15/2015 7:40a [facility] Michelle David M75.80 Other shoulder Medicine Jemima Damon M.D. lesions, [place] unspecified shoulder M75.41 Impingement syndrome of right shoulder Office Visit 10/01/2015 8:00a Orthopedic Kristy M75.80 Other shoulder Services Of JESSICA Flores lesions, C.M.A. unspecified shoulder M75.41 Impingement syndrome of right shoulder M75.41 Impingement syndrome of right shoulder Office Visit 09/03/2015 8:00a [facility] Michelle David M75.41 Impingement Medicine Jemima Damon M.D. syndrome of right [place] shoulder K21.9 Gastro-esophageal reflux disease without esophagitis Office Visit 07/22/2015 8:15a Orthopedic Jaxson Finn, 726.19 Shoulder Services Of M.D. Disorders Other C.M.A. Spec 726.2 Shoulder Region Affections Other Not Elsewhere Class 726.2 Shoulder Region Affections Other Not Elsewhere Class Office Visit 06/25/2015 2:00p Orthopedic Jaxson Finn, 840.4 Sprains & Services Of MShira Strains Rotator C.M.A. Cuff (Capsule) 726.10 Bursae & Tendon Disorders Shoulder Region Unspec 726.10 Bursae & Tendon Disorders Shoulder Region Unspec Plan of Treatment Future Appointment(s):01/17/2019 1:30 pm - Karuna Ngo MD at [facility] AT Pbbahylz75/06/2019 9:00 am - Frankie Damon M.D. at [facility] Internal Medicine - Wctmlkicb15/02/2019 - Karuna Ngo MDZ48.89 Encounter for other specified surgical aftercareNew Medication:[place] 5- 325 mg - 1-2 by mouth every 6 h as neededCyclobenzaprine HCL 10 mg - 1 by mouth every 8 h as neededFollow up:RV in 2 months. May have excuse off work until next visit.
--- NOTE | 2018-12-28 16:15 | ED ---
Back Pain - HPI Summary HPI Summary: This patient is a 53 year old female presenting to [facility] accompanied by her daughter c/o right sided back pain that began 3 days ago. The patient had back surgery on October [address] Ngo. Three days ago the patient states she was straining hard to attempt to pass stool when she heard a pop in her back , since then she has had increasing back pain. The patient rates the pain 5/10 in severity and states it radiates into her groin. This morning she woke up and her underwear were wet since then she has been dribbling. She denies bowel incontinence, dysuria, weakness, fever, and chills. Pt states the pain does not radiate into her LEs. - History of Current Complaint Chief Complaint: EDBackInjuryPain Stated Complaint: BACK PAIN Time Seen by Provider: 12/28/18 16:03 Hx Obtained From: Patient Hx Last Menstrual Period: n/a Onset/Duration: Lasting Days, Still Present Onset/Duration: Started Days Ago, Still Present Timing: Constant Back Pain Location: Is Discrete @ Severity Initially: Moderate Severity Currently: Moderate Pain Intensity: 5 Pain Scale Used: 0-10 Numeric Associated Signs And Symptoms: Positive: Bladder Incontinence. Negative: Weakness, Bowel Incontinence - Allergies/Home Medications Allergies/Adverse Reactions: Allergies Allergy/AdvReac Type Severity Reaction Status Date / Time No Known Allergies Allergy Verified 12/28/18 15:13 Home Medications: Home Medications Hydrocodone/Acetaminophen [Hydrocodone-Acetamin 5-325 mg] 1 tab PO Q4H PRN 12/28 [History Confirmed 12/28/18] PMH/Surg Hx/FS Hx/Imm Hx Endocrine/Hematology History: Reports: Hx Diabetes Denies: Hx Anticoagulant Therapy, Hx Thyroid Disease Cardiovascular History: Reports: Hx Angina, Hx Hypertension Denies: Hx Congestive Heart Failure, Hx Deep Vein Thrombosis, Hx Hypercholesterolemia, Hx Myocardial Infarction, Hx Pacemaker/ICD Respiratory History: Reports: Hx Chronic Obstructive Pulmonary Disease (COPD) Denies: Hx Asthma, Hx Lung Cancer, Hx Pneumonia, Hx Pulmonary Embolism GI History: Denies: Hx Gall Bladder Disease, Hx Gastrointestinal Bleed, Hx Ulcer, Hx Urosepsis History: Denies: Hx Kidney Stones, Hx Renal Disease Musculoskeletal History: Reports: Hx Arthritis - HANDS, BACK, ELBOWS AND KNEES Sensory History: Reports: Hx Contacts or Glasses - BOTH Denies: Hx Hearing Aid Opthamlomology History: Reports: Hx Contacts or Glasses - BOTH Neurological History: Reports: Other Neuro Impairments/Disorders - PAIN CLINIC PT Denies: Hx Dementia, Hx Migraine, Hx Seizures, Hx Transient Ischemic Attacks (TIA) Psychiatric History: Denies: Hx Anxiety, Hx Depression, Hx Panic Disorder, Hx Schizophrenia, Hx Bipolar Disorder - Surgical History Surgery Procedure, Year, and Place: TUBAL LIGATION 1986. APPENDECTOMY A TEEN. MASS EXC RIGHT HAND MANY YRS AGO. right shoulder sx Hx Anesthesia Reactions: No Infectious Disease History: No Infectious Disease History: Denies: Traveled Outside the [place] in Last 30 Days - Family History Known Family History: Positive: Cardiac Disease - Mother and grandmother: [place] at around age 40. , Hypertension - Social History Alcohol Use: None Substance Use Type: Reports: None Smoking Status (MU): Former Smoker Amount Used/How Often: 1 PPD Length of Time of Smoking/Using Tobacco: 20+ YRS Have You Smoked in the Last Year: Yes Review of Systems Negative: Fever, Chills Gastrointestinal: Negative - bowel incontinence Genitourinary: Other - incontinence Negative: dysuria Positive: Other - back pain Negative: Weakness All Other Systems Reviewed And Are Negative: Yes Physical Exam - Summary Physical Exam Summary: VITAL SIGNS: Reviewed. GENERAL: Patient is a well-developed and nourished female who is lying comfortable in the stretcher. Patient is not in any acute respiratory distress. HEAD AND FACE: No signs of trauma. No ecchymosis, hematomas or skull depressions. No sinus tenderness. EYES: PERRLA, EOMI x 2, No injected conjunctiva, no nystagmus. EARS: Hearing grossly intact. Ear canals and tympanic membranes are within normal limits. MOUTH: Oropharynx within normal limits. NECK: Supple, trachea is midline, no adenopathy, no JVD, no carotid bruit, no c- spine tenderness, neck with full ROM. CHEST: Symmetric, no tenderness at palpation LUNGS: Clear to auscultation bilaterally. No wheezing or crackles. CVS: Regular rate and rhythm, S1 and S2 present, no murmurs or gallops appreciated. ABDOMEN: Soft, non-tender. No signs of distention. No rebound no guarding, and no masses palpated. Bowel sounds are normal. Back: there is lumbar tenderness EXTREMITIES: FROM in all major joints, no edema, no cyanosis or clubbing. NEURO: Alert and oriented x 3. No acute neurological deficits. Speech is normal and follows commands. SKIN: Dry and warm Rectal: normal sphincter tone, no blood, no melena, small hemorrhoid at 12clock. Triage Information Reviewed: Yes Vital Signs On Initial Exam: Initial Vitals Temp Pulse Resp BP Pulse Ox 98.7 F 93 16 178/96 98 12/28/18 15:10 12/28/18 15:10 12/28/18 15:10 12/28/18 15:10 12/28/18 15:10 Vital Signs Reviewed: Yes Diagnostics - Vital Signs Vital Signs Temp Pulse Resp BP Pulse Ox 12/28/18 15:10 98.7 F 93 16 178/96 98 - Laboratory Result Diagrams: 12/28/18 16:22 12/28/18 16:22 Lab Statement: Any lab studies that have been ordered have been reviewed, and results considered in the medical decision making process. - CT CT L sp CT Interpretation Completed By: Radiologist Summary of CT Findings: No acute abnormality. Multilevel degenerative disc disease with neural foramina narrowing. Moderate. bilateral neural foramina narrowing at L4-L5, severe at L5-S1. Dr Martinez has reviewed this report MRI L Spine CT Interpretation Completed By: Radiologist Summary of CT Findings: 1. Mild L4-L5 spondylopathy. No canal stenosis or nerve root compression at any. level. 2. Acute findings post L5-S1 posterior fusion and spacer placement. Dr Martinez has reviewed this report. Re-Evaluation - Re-Evaluation First Eval Re-Evaluation Time: 21:31 Comment: I informed the patient that she could wait in the ED for Dr Ngo to come see her or she could be discharged and f/u with him in the AM. She would rather be discharged. Back Pain Course/Dx - Course Assessment/Plan: Blood work shows a wbcs of 16.8, hematomas 17.2, hematocrit 50 , platelets of 275. Facility 0.4, chloride 100, glucose 127, and CRP of 9.34. Urinalysis is negative for UTI. The patient has a good sphincter tone and no acute neurological focal deficits. I discussed my physical exam and findings with Dr. Ngo from neurosurgery. and he recommends a CT of the LS- spine and also an MRI of the L-spine. CT of the LS-spine impression: No acute abnormality. O2 level degenerative disc disease with neural foraminal narrowing. Moderate bilateral neural foraminal narrowing at L4 and L5. Sever at L5 and S1. MRI of the Lumbar spine impression: IMPRESSION: 1. Mild L4-L5 spondylopathy. No canal stenosis or nerve root compression at any. level. 2. Acute findings post L5-S1 posterior fusion and spacer placement. At this point I discussed my physical exam and findings with Dr. Ngo and he recommends for the patient to be discharged home with follow-up with primary care physician. Patient is hemodynamically stable alert and oriented 3. Dr. Ngo came and assessed the patient and he recommends for the patient to be discharged home. - Diagnoses Differential Diagnosis/HQI/PQRI: Positive: Cauda Equina Syndrome, Compressive Cord Syndrome, Epidural Abscess, Herniated Disc Provider Diagnoses: Back pain - Provider Notifications Discussed Care Of Patient With: Karuna Ngo Time Discussed With Above Provider: 21:00 Instructed by Provider To: Other - He suggested giving the patient the option to go home and f/u with him tomorrow or waiting in the ED for him to consult. Discharge - Sign-Out/Discharge Documenting (check all that apply): Patient Departure Patient Received Moderate/Deep Sedation with Procedure: No - Discharge Plan Condition: Stable Disposition: HOME Patient Education Materials: Back Pain (ED) Referrals: Karuna Ngo MD [Medical Doctor] - 1 Day Additional Instructions: Follow up with your primary care physician in 1-3 days. RETURN TO THE EMERGENCY DEPARTMENT FOR CHANGING OR WORSENING SYMPTOMS. - Billing Disposition and Condition Condition: STABLE Disposition: Home - Attestation Statements Document Initiated by Jannie: Yes Documenting Scribe: Terrance Barraagn Provider For Whom Jannie is Documenting (Include Credential): Hermes Martinez MD Scribe Attestation: Terrance Laughlin , scribed for Hermes Martinez MD on 12/29/18 at 2056. Scribe Documentation Reviewed: Yes Provider Attestation: The documentation as recorded by the Terrance jaramillo accurately reflects the service I personally performed and the decisions made by me, Hermes Martinez MD Status of Scribe Document: Viewed
[2018-12-28 16:34] LABS: ABS Basophils 0.2 10^3/ul (0-0.2); ABS Eosinophils 0.1 10^3/ul (0-0.6); ABS Lymphocytes 4.6 10^3/ul (1.0-4.8); ABS Monocytes 0.9 10^3/ul (0-0.8); ABS Nucleated RBC 0 10^3/ul; Eosinophil % 0.6 %; Hematocrit 50 % (35-47); Hemoglobin 17.2 g/dl (12.0-16.0); Lymphocyte % 27.6 %; Mean Corpuscular HGB Conc 35 g/dl (31-36); Mean Corpuscular Hemoglobin 34 pg (27-31); Mean Corpuscular Volume 98 fL (80-97); Nucleated Red Blood Cells % 0; Platelet Count 275 10^3/ul (150-450); Red Blood Count 5.09 10^6/ul (4.00-5.40); Red Cell Distribution Width 14 % (10.5-15); White Blood Count 16.8 10^3/ul (3.5-10.8)
[2018-12-28 16:45] LABS: Urine Appearance Clear; Urine Bacteria 1+ (Absent); Urine Bilirubin Negative (Negative); Urine Blood 2+ (Negative); Urine Color Yellow; Urine Glucose Negative (Negative); Urine Ketones Negative (Negative); Urine Nitrite Negative (Negative); Urine Protein Negative (Negative); Urine Red Blood Cell Trace(0-2/hpf) (Absent); Urine Specific Gravity 1.008 (1.010-1.030); Urine Squamous Epithelial Cell Present (Absent); Urine Urobilinogen Negative (Negative); Urine White Blood Cell Trace(0-5/hpf) (Absent)
[2018-12-28 16:56] LABS: Albumin 4.8 g/dL (3.2-5.2); Albumin/Globulin Ratio 1.7 (1-3); BUN/Creatinine Ratio 19.4 (8-20); C Reactive Protein 9.34 mg/L (<8.01); Calcium 10.2 mg/dL (8.6-10.3); EGFR African American 111.4 (>60); EGFR Non-African American 92.1 (>60); Globulin 2.9 g/dL (2-4); Potassium 3.4 mmol/L (3.5-5.0); Total Bilirubin 0.4 mg/dL (0.2-1.0); Total Protein 7.7 g/dL (6.4-8.9)
[2018-12-28] MEDS ORDERED: Gadoteridol* (CONTRAST) 279.3 MG/ML 10 ML IV ONE (19:26)
[2018-12-28] MEDS ORDERED: Potassium Chlor TAB* 20 MEQ TAB.ER PO ONE (21:21)
[2018-12-28 22:32] VITALS: BP 180/101
== END 2018-12-28 22:20 | disposition home or self-care (01) ==
LOC: ED 15:05
DX: M54.5 Low back pain (principal); M48.9 Spondylopathy, unspecified; M51.36 Other intervertebral disc degeneration, lumbar region; R32 Unspecified urinary incontinence; K64.9 Unspecified hemorrhoids; Z87.891 Personal history of nicotine dependence
CPT/HCPCS: 36415; 72131; 72158; 80053; 81003; 81015; 82270; 82550; 85025; 86140; 87086; 99284; A9270-GY; A9579